=== PATIENT | male | born 1970 | race Caucasian/White ===

== ENCOUNTER 2020-01-21 16:24 | Inpatient (IN) ==
[2020-01-21] MEDS ORDERED: SODIUM CHLORIDE 0.9% 1000ML 1,000 ML IV SCH (17:00)
[2020-01-21 18:06] LABS: Basophils # (auto) 0.05 K/uL (0-0.2); Basophils % (auto) 0.4 %; Eosinophils # (auto) 0.51 K/uL (0-0.5); Eosinophils % (auto) 4.6 %; Hematocrit (blood only) 44.4 % (42-52); Hemoglobin 14.6 g/dL (14.0-18.0); Immature Granulocytes # (auto) 0.03 K/uL (0.00-0.02); Immature Granulocytes % (auto) 0.3 %; Lymphocytes # (auto) 2.01 K/uL (1.2-3.4); Lymphocytes % (auto) 18.1 %; Mean Corpuscular Hemoglobin 30.5 pg (25-34); Mean Corpuscular Hgb Conc 32.9 g/dL (32-36); Mean Corpuscular Volume 92.9 fL (80-100); Mean Platelet Volume 10.5 fL (7.4-10.4); Monocytes % (auto) 7.2 %; Neutrophils # (auto) 7.72 K/uL (1.4-6.5); Neutrophils % (auto) 69.4 %; Platelet Count 427 K/uL (130-400); RDW Standard Deviation 51.1 fL (36.4-46.3); Red Blood Count 4.78 M/uL (4.7-6.1); White Blood Count 11.12 K/uL (4.8-10.8)
[2020-01-21 18:28] LABS: Alanine Aminotransferase 15 U/L (12-78); Albumin Level 2.6 gm/dl (3.4-5.0); Aspartate Aminotransferase 9 U/L (15-37); BUN Creatinine Ratio 14.1 (10-20); Blood Urea Nitrogen 12 mg/dl (7-18); Calcium 8.7 mg/dl (8.5-10.1); Carbon Dioxide 31 mmol/L (21-32); Chloride 101 mmol/L (98-107); Est GFR (African American) 118.6; Est GFR (Non-African American) 102.3; Glucose 89 mg/dl (70-99); Potassium 4.1 mmol/L (3.5-5.1); Sodium 138 mmol/L (136-145)
[2020-01-21 18:31] LABS: Albumin Globulin Ratio 0.5 (0.9-2); Alkaline Phosphatase 150 U/L (45-117); Bilirubin,Total 0.5 mg/dl (0.2-1); C Reactive Protein 8.41 mg/dl (0-0.29); Globulin 5.5 gm/dl (2.5-4.0); Total Protein 8.1 gm/dl (6.4-8.2)
[2020-01-21] MEDS ORDERED: IOVERSOL 100ml IV PRN (18:57)
[2020-01-21] MEDS ORDERED: metroNIDAZOLE 500 MG/100 ML BAG IV STA (19:23)
[2020-01-21] MEDS ORDERED: DAPTOMYCIN CONSULT ACTIVE PRN (19:23)
[2020-01-21] MEDS ORDERED: DAPTOmycin 600 MG in SYRINGE 0 ML IV ONE (19:23)
[2020-01-21] MEDS ORDERED: CEFEPIME 2,000 MG/20 ML VIAL IV STA (19:23)
--- NOTE | 2020-01-21 19:27 | CT Scan Report ---
CT tib/fib RT w con CLINICAL HISTORY: R stump swelling, wound COMPARISON STUDY: No previous studies for comparison. TECHNIQUE: Axial images of the right lower leg were obtained following intravenous injection of 94 cc of Optiray 320 IV. Sagittal and coronal reconstructions were viewed. Automated exposure control was utilized for the study. A dose lowering technique was utilized adhering to the principles of ALARA. FINDINGS: Note is made of postoperative findings consistent with a right below-knee amputation. No so ft tissue gas is present. There is extensive infiltration soft tissue thickening adjacent to the kishan ining portions of the tibia and fibula with associated periosteal reaction of the distal remaining sh afts of the right tibia and fibula. Mild associated bone loss is suspected. Extensive adjacent soft t issue thickening is noted with a 2.3 cm rim-enhancing fluid collection anterior to the remaining port ion of the tibia. There is also an additional 2.1 cm rim-enhancing fluid collection anterior and late ral to the fibula. Skin thickening is noted. IMPRESSION: Status post right below knee amputation. Skin thickening, subcutaneous infiltration and extensive soft tissue thickening adjacent to the remaining portions of the tibia and fibula with a fe w rim-enhancing fluid collections that measure up to 2.3 cm highly suggestive of abscesses. Associate d periosteal reaction of the distal right tibia and fibula are highly suggestive of osteomyelitis. Fi ndings discussed with Dr. Jarrett at time of dictation. ACT 112: Negative or not required by law. Electronically signed by: Jose Harman M.D. 01/21/2020 7:25 PM
--- NOTE | 2020-01-21 19:59 | Ultrasound Report ---
RIGHT LOWER EXTREMITY VENOUS DOPPLER CLINICAL HISTORY: leg swelling COMPARISON STUDY: CT of the right tibia and fibula performed earlier today TECHNIQUE: Sonography of the deep venous system of the right lower extremity was performed. Compress ion and augmentation were evaluated. FINDINGS: Patient is status post right below knee amputation. No deep venous thrombus is identified w ithin the right leg. IMPRESSION: No evidence of deep venous thrombus within the right lower extremity. ACT 112: Negative or not required by law. Electronically signed by: Jose Harman M.D. 01/21/2020 7:58 PM
[2020-01-21 21:15] LABS: Creatine Kinase 35 U/L (39-308); Magnesium 2.2 mg/dl (1.8-2.4)
--- NOTE | 2020-01-21 21:17 | History & Physical Report ---
Date of Service January 21, 2020 Assessment & Plan (1) Abscess of skin and subcutaneous tissue: R BKA stump infection Possible osteomyelitis on CT No sepsis for now hx Wtabbjn-Xijqu-Iwhqq disease history postop DVT on Aspirin (Coumadin noncompliance as per records) past tobacco abuse [facility] CS. Daptomycin, Cefepime, Flagyl for now Orthopedics consult RE R BKA stump infection (ER provider already in touch with Dr. Verdugo who recommends n.p.o. after midnight for possible procedure in a.m.) ID consult RE possible osteomyelitis, R BKA stump DVT prophylaxis SCDs for now RE possible procedure (Recommend pharmacologic anticoagulation given prior history of DVT once bleeding risk is deemed to be minimal and negligible pending Orthopedics evaluation.) Full code Text document was generated using [employer] voice recognition software. It may contain grammatical or spelling errors. Kindly contact undersigned for clarification of any documentation item in question. History of Present Illness Primary Care Provider: Dr. Javed History obtained from patient and records. Medical history significant for Uelxoug-Xmmtz-Lojkj disease, history right BKA, history postop DVT (2019) on aspirin (Coumadin noncompliance as per records), past tobacco abuse. Remote [facility] confinement 2013 for L foot ulcer concerning for osteomyelitis status post toe amputation. Patient underwent right BKA at [facility] for RLE osteomyelitis last April 2019. Patient had recent outpatient follow-up with [facility] last week. Problems wearing prosthetic leg because stump keeps fluctuating in size as per note. Follow-up with local dental ceramist recommended. Few days ago, patient noted increased redness on right BKA stump. No recollection of trauma or open wounds except for the issues with prostatic. No fever, no chills. No chest pain, no S OB. CT RLE scan done at the ER results as follows : Status post right below knee amputation. Skin thickening, subcutaneous infiltration and extensive soft tissue thickening adjacent to the remaining portions of the tibia and fibula with a few rim-enhancing fluid collections that measure up to 2.3 cm highly suggestive of abscesses. Associated periosteal reaction of the distal right tibia and fibula are highly suggestive of osteomyelitis. Patient given Daptomycin, Cefepime and Flagyl at the ER. Medical History as above Surgical History : Toe amputations, right BKA Family History : Heart disease, diabetes, prostate cancer, Qgwjrns-Sfirp-Onryr disease Personal/Social history : Past tobacco abuse, no EtOH intake, disabled Allergies Allergy/AdvReac Type Severity Reaction Status Date / Time Penicillins Allergy Intermediate rash, hives Verified 01/21/20 17:18 tramadol AdvReac Unknown Verified 01/21/20 21:37 Home Medications Home Medications Medication Instructions Recorded Confirmed Type aspirin [Aspirin Low Dose] 81 mg PO DAILY 10/26/18 01/21/20 History oxycodone-acetaminophen 1 tab PO Q6H PRN 10/26/18 01/21/20 History Past Med/Surg History Medical History Sevdzlu-Udjbh-Qnojq disease Osteomyelitis Social History 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 Beliefs That Will Affect Care: None Current Living Situation: Spouse and Family Other Information That Helps Us Care for You: No Feels Safe at Home: Yes Safety Concerns: Feels Safe At This Time Smoking Status: Former smoker Tobacco Type: cigarettes ; Do You Dip or Chew Tobacco: No ; Second Hand Exposure: No ; Tobacco Cessation Education Requested by Patient: No Hx Substance Use: No Review of Systems Review of Systems: As per HPI, all 10 systems reviewed, all other ROS negative Physical Exam Physical Exam: GENERAL: Comfortable, pleasant, no respiratory distress SKIN: Normal color, warm HEENT: [place] palpebral conjunctivae, no ptosis, dry buccal mucosa NECK : Supple, no tenderness CHEST : CTA, no tenderness HEART : RRR, no obvious murmurs ABDOMEN: Some distention, nontender EXTREMITIES : Right BKA stump induration with tenderness NEUROLOGIC : Coherent, no facial asymmetry, no other gross focality Results & Data Results & Data ([facility]) Vital Signs (Past 12 Hours) Vital Signs Temp Pulse Pulse Resp BP BP Pulse Ox 01/21/20 20:26 119/54 L 01/21/20 20:00 114/50 L 01/21/20 18:25 74 20 105/50 L 97 01/21/20 16:27 36.5 C 85 20 106/65 99 Laboratory Results Laboratory Results WBC 11.12 K/uL (4.8-10.8) H 01/21/20 17:30 RBC 4.78 M/uL (4.7-6.1) 01/21/20 17:30 Hgb 14.6 g/dL (14.0-18.0) 01/21/20 17:30 Hct 44.4 % (42-52) 01/21/20 17:30 MCV 92.9 fL (80-100) 01/21/20 17:30 MCH 30.5 pg (25-34) 01/21/20 17: MCHC 32.9 g/dL (32-36) 01/21/20 17:30 RDW Std Deviation 51.1 fL (36.4-46.3) H 01/21/20 17:30 RDW Coeff of Caitlin 15.0 % (11.5-14.5) H 01/21/20 17: Plt Count 427 K/uL (130-400) H 01/21/20 17:30 MPV 10.5 fL (7.4-10.4) H 01/21/20 17:30 Immature Gran % (Auto) 0.3 % 01/21/20 17:30 Neut % (Auto) 69.4 % 01/21/20 17:30 Lymph % (Auto) 18.1 % 01/21/20 17:30 [place] % (Auto) 7.2 % 01/21/20 17:30 Eos % (Auto) 4.6 % 01/21/20 17:30 Baso % (Auto) 0.4 % 01/21/20 17:30 Immature Gran # (Auto) 0.03 K/uL (0.00-0.02) H 01/21/20 17:30 Neut # (Auto) 7.72 K/uL (1.4-6.5) H 01/21/20 17:30 Lymph # (Auto) 2.01 K/uL (1.2-3.4) 01/21/20 17:30 [place] # (Auto) 0.80 K/uL (0.11-0.59) H 01/21/20 17:30 Eos # (Auto) 0.51 K/uL (0-0.5) H 01/21/20 17:30 Baso # (Auto) 0.05 K/uL (0-0.2) 01/21/20 17:30 ESR > 90 mm/hr (0-14) H 01/21/20 17:30 Sodium 138 mmol/L (136-145) 01/21/20 17:30 Potassium 4.1 mmol/L (3.5-5.1) 01/21/20 17:30 Chloride 101 mmol/L (98-107) 01/21/20 17:30 Carbon Dioxide 31 mmol/L (21-32) 01/21/20 17:30 Anion Gap 6.0 (3-11) 01/21/20 17:30 BUN 12 mg/dl (7-18) 01/21/20 17:30 Creatinine 0.85 mg/dl (0.6-1.4) 01/21/20 17:30 Est Cr Clr Drug Dosing Not Reportable 01/21/20 17:30 Est GFR ( Amer) 118.6 01/21/20 17:30 Est GFR (Non-Af Amer) 102.3 01/21/20 17:30 BUN/Creatinine Ratio 14.1 (10-20) 01/21/20 17:30 Glucose 89 mg/dl (70-99) 01/21/20 17:30 Lactate 0.9 mmol/L (0.4-2.0) 01/21/20 18:49 Calcium 8.7 mg/dl (8.5-10.1) 01/21/20 17:30 Magnesium 2.2 mg/dl (1.8-2.4) 01/21/20 17:30 Total Bilirubin 0.5 mg/dl (0.2-1) 01/21/20 17:30 AST 9 U/L (15-37) L 01/21/20 17:30 ALT 15 U/L (12-78) 01/21/20 17:30 Alkaline Phosphatase 150 U/L (45-117) H 01/21/20 17:30 Total Creatine Kinase 35 U/L (39-308) L 01/21/20 17:30 C-Reactive Protein 8.41 mg/dl (0-0.29) H 01/21/20 17:30 Total Protein 8.1 gm/dl (6.4-8.2) 01/21/20 17:30 Albumin 2.6 gm/dl (3.4-5.0) L 01/21/20 17:30 Globulin 5.5 gm/dl (2.5-4.0) H 01/21/20 17:30 Albumin/Globulin Ratio 0.5 (0.9-2) L 01/21/20 17:30 Procalcitonin < 0.05 ng/ml (0-0.5) 01/21/20 17:[address] right lower extremity as per HPI RLE venous Dopplers: No evidence of deep venous thrombus within the right lower extremity. (1) Abscess of skin and subcutaneous tissue Laterality: right Site of cutaneous abscess: extremity Site of cutaneous abscess of extremity: lower extremity Qualified Code(s): L02.415 - Cutaneous abscess of right lower limb
[2020-01-21] MEDS ORDERED: PROMETHAZINE HCL 12.5 MG in SODIUM CHLORIDE 0.9% 50 ML IV PRN (22:16)
[2020-01-21] MEDS ORDERED: ACETAMINOPHEN 325 MG TAB PO PRN (22:16)
[2020-01-21] MEDS ORDERED: IBUPROFEN 200 MG TAB PO PRN (22:16)
[2020-01-21] MEDS ORDERED: CEFEPIME CONSULT ACTIVE PRN (22:27)
--- NOTE | 2020-01-21 23:21 | Emergency Department Note ---
History of Present Illness General Chief complaint: Lower Extremity Injury/Pain Stated complaint: RT LEG SWELLING, HOT TO THE TOUCH Time Seen by Provider: 01/21/20 16:45 Source: patient Mode of arrival: ambulatory Limitations: no limitations History of Present Illness Provider complaint: Right leg swelling Onset (ago): day(s) 2 Maximum Pain Intensity: 8 This patient is a 49-year-old male who presents to the emergency department with complaints of right lower extremity swelling and redness. Patient states he had a below the knee amputation in April 2019. He has not been able to wear his prosthetic for the the last 2 weeks due to swelling. The patient states he saw his primary care physician who advised warm soaks of the leg. Patient states he was soaking his leg tonight and noticed a wound on the surface of the scar. Patient does have a remote history of PE but is not currently anticoagulated. He admits to a history of Psdhayc-Fnjmb-Ilsiu and denies any diabetic history. Home Medications Home Medications Medication Instructions Recorded Confirmed Type aspirin [Aspirin Low Dose] 81 mg PO DAILY 10/26/18 01/21/20 History oxycodone-acetaminophen 1 tab PO Q6H PRN 10/26/18 01/21/20 History Allergies Allergy/AdvReac Type Severity Reaction Status Date / Time Penicillins Allergy Intermediate rash, hives Verified 01/21/20 17:18 tramadol AdvReac Unknown Verified 01/21/20 21:37 Past Med/Surg History Medical History Zqwfxnn-Jjjny-Jayzi disease Osteomyelitis Social History Preferred Language: Czech Power Washer Required: No Beliefs That Will Affect Care: None Current Living Situation: Spouse and Family Other Information That Helps Us Care for You: No Feels Safe at Home: Yes Safety Concerns: Feels Safe At This Time Smoking Status: Former smoker Tobacco Type: cigarettes ; Do You Dip or Chew Tobacco: No ; Second Hand Exposure: No ; Tobacco Cessation Education Requested by Patient: No Hx Substance Use: No Review of Systems See HPI for pertinent positives & negatives. and A total of 10 systems reviewed and were otherwise negative Physical Exam Vital Signs Vital Signs - 24 hr 01/21/20 16:27 01/21/20 18:25 01/21/20 20:00 Temperature 36.5 C Temperature Source Oral Pulse Rate 85 Pulse Rate [Right Finger] 74 Pulse Rhythm [Right Finger] Regular Pulse Strength [Right Finger] Normal Respiratory Rate 20 20 Respiratory Effort / Characteristics Non-Labored Spontaneous Respiratory Depth Normal Respiratory Pattern Regular Blood Pressure 106/65 Blood Pressure [Right Arm] 105/50 L 114/50 L Blood Pressure Mean 78 Blood Pressure Mean [Right Arm] 68 71 Blood Pressure Position [Right Arm] Lying Pulse Oximetry 99 97 Oxygen Delivery Method Room Air Room Air Sepsis Recent Fever Within 48 Hours No Sepsis New/Unexplained Change in Mental Status No Sepsis Action Taken by Nursing No Action Required 01/21/20 20:26 Temperature Temperature Source Pulse Rate Pulse Rate [Right Finger] Pulse Rhythm [Right Finger] Pulse Strength [Right Finger] Respiratory Rate Respiratory Effort / Characteristics Respiratory Depth Respiratory Pattern Blood Pressure Blood Pressure [Right Arm] 119/54 L Blood Pressure Mean Blood Pressure Mean [Right Arm] 75 Blood Pressure Position [Right Arm] Pulse Oximetry Oxygen Delivery Method Sepsis Recent Fever Within 48 Hours Sepsis New/Unexplained Change in Mental Status Sepsis Action Taken by Nursing Vital signs reviewed. General: Chronically ill-appearing 49 yo male, in no significant distress. HEENT: No scleral icterus, PERRLA, neck supple. Atraumatic. Cardiovascular: Regular rate and rhythm, no extra sounds. Pulmonary: Clear to auscultation bilaterally, normal work of breathing. Abdomen: Soft, nontender, nondistended, positive bowel sounds. Musculoskeletal: Minimal peripheral edema, right below the knee amputation stump with localized swelling, erythema. Warm to touch. Small blister-like lesion noted to the lateral aspect of the postsurgical scar. No evidence of lymphangitic streaking proximally Neurologic: Patient awake alert and oriented x 3 Skin: Warm, dry, no rash Course Administered Medications Discontinued Medications Sodium Chloride (Nss 1000ml) 1,000 mls @ 125 mls/hr IV .Q8H CHERRY Stop: 01/22/20 00:59 Last Infusion: 01/21/20 22:39 Dose: 0 mls/hr Documented by: [id number] Admin: 01/21/20 17:54 Dose: 125 mls/hr Documented by: [id number] Daptomycin 600 mg/ Syringe 12 mls @ 6 mls/min IV NOW ONE; Protocol Stop: 01/21/20 19:24 Last Admin: 05/12/20 20:03 Dose: 6 mls/min Documented by: [id number] Cefepime HCl (Maxipime) 2,000 mg in 20 mls @ 5 mls/min IV NOW STA Stop: 01/21/20 19:26 Last Admin: 01/21/20 20:03 Dose: 5 mls/min Documented by: [id number] Metronidazole (Flagyl) 500 mg in 100 mls @ 100 mls/hr IV NOW STA Stop: 01/21/20 20:22 Last Infusion: 01/21/20 21:10 Dose: 0 mls/hr Documented by: [id number] Admin: 01/21/20 20:03 Dose: 100 mls/hr Documented by: [id number] Ioversol (Optiray 320 100ml) 94 ml IV ONCE PRN PRN Reason: Interaction Checking Stop: 01/25/20 18:56 Last Admin: 01/21/20 18:59 Dose: 94 ml Documented by: [id number] Medical Decision Making Differential Diagnosis Differential diagnosis: Etiologies such as cellulitis, abscess, osteomyelitis, MRSA infection, DVT, necrotizing fasciitis, dermatitis, drug eruption, as well as others were entertained. Medical Records Attestation: I reviewed the patient's medical records. Home Medications Current Medication List: was personally reviewed by me Laboratory Data Attestation: I reviewed the patient's lab results. Result diagrams: 01/21/20 17:30 01/21/20 17:30 Lab Results 01/21/20 01/21/20 01/21/20 Range/Units 17:30 17:30 17:30 WBC 11.12 H (4.8-10.8) K/uL RBC 4.78 (4.7-6.1) M/uL Hgb 14.6 (14.0-18.0) g/dL Hct 44.4 (42-52) % MCV 92.9 (80-100) fL MCH 30.5 (25-34) pg MCHC 32.9 (32-36) g/dL RDW Std Deviation 51.1 H (36.4-46.3) fL RDW Coeff of Caitlin 15.0 H (11.5-14.5) % Plt Count 427 H (130-400) K/uL MPV 10.5 H (7.4-10.4) fL Immature Gran % (Auto) 0.3 % Neut % (Auto) 69.4 % Lymph % (Auto) 18.1 % [place] % (Auto) 7.2 % Eos % (Auto) 4.6 % Baso % (Auto) 0.4 % Immature Gran # (Auto) 0.03 H (0.00-0.02) K/uL Neut # (Auto) 7.72 H (1.4-6.5) K/uL Lymph # (Auto) 2.01 (1.2-3.4) K/uL [place] # (Auto) 0.80 H (0.11-0.59) K/uL Eos # (Auto) 0.51 H (0-0.5) K/uL Baso # (Auto) 0.05 (0-0.2) K/uL ESR > 90 H (0-14) mm/hr Sodium 138 (136-145) mmol/L Potassium 4.1 (3.5-5.1) mmol/L Chloride 101 (98-107) mmol/L Carbon Dioxide 31 (21-32) mmol/L Anion Gap 6.0 (3-11) BUN 12 (7-18) mg/dl Creatinine 0.85 (0.6-1.4) mg/dl Est Cr Clr Drug Dosing Not Reportable Est GFR ( Amer) 118.6 Est GFR (Non-Af Amer) 102.3 BUN/Creatinine Ratio 14.1 (10-20) Glucose 89 (70-99) mg/dl Lactate (0.4-2.0) mmol/L Calcium 8.7 (8.5-10.1) mg/dl Magnesium 2.2 (1.8-2.4) mg/dl Total Bilirubin 0.5 (0.2-1) mg/dl AST 9 L (15-37) U/L ALT 15 (12-78) U/L Alkaline Phosphatase 150 H (45-117) U/L Total Creatine Kinase 35 L (39-308) U/L C-Reactive Protein 8.41 H (0-0.29) mg/dl Total Protein 8.1 (6.4-8.2) gm/dl Albumin 2.6 L (3.4-5.0) gm/dl Globulin 5.5 H (2.5-4.0) gm/dl Albumin/Globulin Ratio 0.5 L (0.9-2) Procalcitonin (0-0.5) ng/ml 01/21/20 01/21/20 Range/Units 17:30 18:49 WBC (4.8-10.8) K/uL RBC (4.7-6.1) M/uL Hgb (14.0-18.0) g/dL Hct (42-52) % MCV (80-100) fL MCH (25-34) pg MCHC (32-36) g/dL RDW Std Deviation (36.4-46.3) fL RDW Coeff of Caitlin (11.5-14.5) % Plt Count (130-400) K/uL MPV (7.4-10.4) fL Immature Gran % (Auto) % Neut % (Auto) % Lymph % (Auto) % [place] % (Auto) % Eos % (Auto) % Baso % (Auto) % Immature Gran # (Auto) (0.00-0.02) K/uL Neut # (Auto) (1.4-6.5) K/uL Lymph # (Auto) (1.2-3.4) K/uL [place] # (Auto) (0.11-0.59) K/uL Eos # (Auto) (0-0.5) K/uL Baso # (Auto) (0-0.2) K/uL ESR (0-14) mm/hr Sodium (136-145) mmol/L Potassium (3.5-5.1) mmol/L Chloride (98-107) mmol/L Carbon Dioxide (21-32) mmol/L Anion Gap (3-11) BUN (7-18) mg/dl Creatinine (0.6-1.4) mg/dl Est Cr Clr Drug Dosing Est GFR ( Amer) Est GFR (Non-Af Amer) BUN/Creatinine Ratio (10-20) Glucose (70-99) mg/dl Lactate 0.9 (0.4-2.0) mmol/L Calcium (8.5-10.1) mg/dl Magnesium (1.8-2.4) mg/dl Total Bilirubin (0.2-1) mg/dl AST (15-37) U/L ALT (12-78) U/L Alkaline Phosphatase (45-117) U/L Total Creatine Kinase (39-308) U/L C-Reactive Protein (0-0.29) mg/dl Total Protein (6.4-8.2) gm/dl Albumin (3.4-5.0) gm/dl Globulin (2.5-4.0) gm/dl Albumin/Globulin Ratio (0.9-2) Procalcitonin < 0.05 (0-0.5) ng/ml Imaging Data Radiologist's Impression: CT tib/fib RT w con CLINICAL HISTORY: R stump swelling, wound COMPARISON STUDY: No previous studies for comparison. TECHNIQUE: Axial images of the right lower leg were obtained following intravenous injection of 94 cc of Optiray 320 IV. Sagittal and coronal reconstructions were viewed. Automated exposure control was utilized for the study. A dose lowering technique was utilized adhering to the principles of ALARA. FINDINGS: Note is made of postoperative findings consistent with a right below- knee amputation. No soft tissue gas is present. There is extensive infiltration soft tissue thickening adjacent to the remaining portions of the tibia and fibula with associated periosteal reaction of the distal remaining shafts of the right tibia and fibula. Mild associated bone loss is suspected. Extensive adjacent soft tissue thickening is noted with a 2.3 cm rim-enhancing fluid collection anterior to the remaining portion of the tibia. There is also an additional 2.1 cm rim-enhancing fluid collection anterior and lateral to the fibula. Skin thickening is noted. IMPRESSION: Status post right below knee amputation. Skin thickening, subcutaneous infiltration and extensive soft tissue thickening adjacent to the remaining portions of the tibia and fibula with a few rim-enhancing fluid collections that measure up to 2.3 cm highly suggestive of abscesses. Associated periosteal reaction of the distal right tibia and fibula are highly suggestive of osteomyelitis. Findings discussed with Dr. Jarrett at time of dictation. ACT 112: Negative or not required by law. Electronically signed by: Jose Harman M.D. 01/21/2020 7:25 PM Dictated: 01/21/201909 Transcribed: 01/21/201909 RIGHT LOWER EXTREMITY VENOUS DOPPLER CLINICAL HISTORY: leg swelling COMPARISON STUDY: CT of the right tibia and fibula performed earlier today TECHNIQUE: Sonography of the deep venous system of the right lower extremity was performed. Compression and augmentation were evaluated. FINDINGS: Patient is status post right below knee amputation. No deep venous thrombus is identified within the right leg. IMPRESSION: No evidence of deep venous thrombus within the right lower extremity. ACT 112: Negative or not required by law. Electronically signed by: Jose Harman M.D. 01/21/2020 7:58 PM Dictated: 01/21/201956 Transcribed: 01/21/201956 Blood Pressure Blood Pressure Findings: Normal blood pressure Blood Pressure Disposition: did not require urgent referral MDM Narrative This patient was evaluated and appeared to be in no significant distress. IV access was obtained and laboratory work was drawn. Patient's vital signs have remained stable. He was hydrated with normal saline solution. CT imaging was performed of the right lower extremity and reveals evidence of inflammatory change consistent with osteomyelitis as well as several rim-enhancing lesions, largest of which is 2.3 cm. This would be consistent with abscess. Patient was medicated with IV daptomycin, IV Flagyl and IV cefepime due to his penicillin allergy. Case was discussed with the hospitalist service, Dr. Hernandez who has agreed to evaluate the patient for admission. He did request consultation with orthopedics, Dr. Wilson. He has requested that the patient be n.p.o. after midnight. Patient is aware of this plan and agrees. Impression & Plan Cellulitis, Osteomyelitis, Abscess of skin and subcutaneous tissue Discharge Plan Visit Data *Final* Discharge Date/Time: 01/21/20 22:08 Chief Complaint: Lower Extremity Injury/Pain Stated Complaint: RT LEG SWELLING, HOT TO THE TOUCH ED Provider: Mari Jarrett Discharge Problem: Cellulitis, Osteomyelitis, Abscess of skin and subcutaneous tissue Patient Disposition: Admitted As Inpatient Discharge Instructions Interventions: ED Discharge Assessment Last Done: 01/21/20 22:08 Discharge Problem: Cellulitis Qualifiers: Site of cellulitis: extremity Site of cellulitis of extremity: lower extremity Laterality: right Qualified Code(s): L03.115 - Cellulitis of right lower limb Osteomyelitis Qualifiers: Osteomyelitis type: unspecified type Osteomyelitis location: tibia Laterality: right Qualified Code(s): M86.9 - Osteomyelitis, unspecified Abscess of skin and subcutaneous tissue Qualifiers: Site of cutaneous abscess: extremity Site of cutaneous abscess of extremity: lower extremity Laterality: right Qualified Code(s): L02.415 - Cutaneous abscess of right lower limb
[2020-01-22] MEDS: MoRPHine SULFATE 4 MG/ML 1 ML CARP\\VIAL IV PRN ×3 (00:02→22:41)
[2020-01-22] MEDS: SODIUM CHLORIDE 0.9% 1000ML 1,000 ML IV SCH ×2 (00:08→19:30)
[2020-01-22] MEDS: OXYCODONE/ACETAMINOPHEN 5mg/325mg TAB PO PRN ×3 (02:27→19:29)
[2020-01-22 05:47] LABS: Basophils # (auto) 0.06 K/uL (0-0.2); Basophils % (auto) 0.5 %; Eosinophils # (auto) 0.66 K/uL (0-0.5); Eosinophils % (auto) 5.4 %; Hematocrit (blood only) 38.9 % (42-52); Hemoglobin 12.9 g/dL (14.0-18.0); Immature Granulocytes # (auto) 0.04 K/uL (0.00-0.02); Immature Granulocytes % (auto) 0.3 %; Lymphocytes # (auto) 2.65 K/uL (1.2-3.4); Lymphocytes % (auto) 21.9 %; Mean Corpuscular Hemoglobin 30.7 pg (25-34); Mean Corpuscular Hgb Conc 33.2 g/dL (32-36); Mean Corpuscular Volume 92.6 fL (80-100); Mean Platelet Volume 9.9 fL (7.4-10.4); Monocytes # (auto) 0.82 K/uL (0.11-0.59); Monocytes % (auto) 6.8 %; Neutrophils # (auto) 7.89 K/uL (1.4-6.5); Neutrophils % (auto) 65.1 %; Platelet Count 355 K/uL (130-400); RDW Standard Deviation 51.3 fL (36.4-46.3); White Blood Count 12.12 K/uL (4.8-10.8)
[2020-01-22 06:25] LABS: Creatinine Clr Calc Pharmacy 177.1 ml/min; Est GFR (African American) 127.7; Est GFR (Non-African American) 110.2; Potassium 3.8 mmol/L (3.5-5.1)
[2020-01-22] MEDS ORDERED: ASPIRIN 81 MG ECTAB PO SCH (09:00)
--- NOTE | 2020-01-22 09:23 | Orthopedic Consultation ---
Date of Consultation January 22, 2020 Assessment & Plan (1) Abscess of skin and subcutaneous tissue: He is currently n.p.o. We will plan to do an irrigation, drainage, debridement of his right lower extremity stump later today. This does appear to be infection. Will recommend continue his IV antibiotics. He was consented and risks and complications were discussed. He agrees to proceed with surgery. He was offered to go to [facility] but elected to stay here to have the surgery. New dressings were applied. Patient was seen and evaluated by Dr. Wilson today. He is not currently on any anticoagulation except for baby aspirin. Patient understands and agrees with the plan. Present on Admission?: Yes History of Present Illness Reason for Consultation: Right below-knee amputation stump infection Attending Physician: Hui Henry MD History of Present Illness Patient is a 49-year-old male who presented to the emergency room at [facility] yesterday. He presented complaining of increased swelling redness and warmth to his right knee and below-knee amputation stump. He states that he had an amputation in April 2019 at [facility] for treatment of Wrvskhp-Xeolu-Otomd disease He states that he had the amputation because he did develop ankle fracture that failed to respond to fixation and developed an infection. He has been doing well with the amputation postoperatively. He states that he did not have an infection after surgery and that his wound healed up just fine. He recently has been breaking in a prosthesis and developed some discomfort starting about 2 weeks ago. He did see his [facility] doctor on Monday and he recommended seeing his local prosthetists to have things modified. Over the weekend things started to get more painful in the stump. He denies any fevers, chills, nausea, vomiting, diarrhea. He states otherwise he feels his normal healthy self. States left evening the wound did open up and he noticed some blood on the dressings. He was admitted for care and an orthopedic consult was placed. He is currently n.p.o. Allergies Allergy/AdvReac Type Severity Reaction Status Date / Time Penicillins Allergy Intermediate rash, hives Verified 01/21/20 17:18 tramadol AdvReac Unknown Verified 01/21/20 21:37 Home Medications Home Medications Medication Instructions Recorded Confirmed Type aspirin [Aspirin Low Dose] 81 mg PO DAILY 10/26/18 01/21/20 History oxycodone-acetaminophen 1 tab PO Q6H PRN 10/26/18 01/21/20 History Patient History Medical History Wlcrcnw-Ihbef-Ymuym disease Osteomyelitis Social History Preferred Language: Croatian Coater Required: No Beliefs That Will Affect Care: None Current Living Situation: Spouse and Family Other Information That Helps Us Care for You: No Feels Safe at Home: Yes Safety Concerns: Feels Safe At This Time Smoking Status: Former smoker Tobacco Type: cigarettes ; Do You Dip or Chew Tobacco: No ; Second Hand Exposure: No ; Tobacco Cessation Education Requested by Patient: No Hx Substance Use: No Review of Systems Review of Systems: All systems reviewed & are unremarkable except as noted in HPI & below Physical Exam Physical Exam: Edema of his right lower extremity stump. His incision is otherwise healed except for lateral central portion. There is a small dime- sized opening with bloody drainage. Surrounding erythema and mild fluctuance. It is tender with palpation. He has no calf tenderness. His calf is supple. He has full range of motion of his knee and hip without discomfort. No purulence noted. Results & Data ([facility]) Vital Signs (Past 12 Hours) Vital Signs Temp Pulse Resp BP Pulse Ox 01/22/20 07:30 36.7 C 70 18 95/60 L 94 01/21/20 22:23 37 C 84 16 110/66 98 01/21/20 21:51 78 16 107/71 98 Laboratory Results 01/22/20 01/22/20 01/21/20 Range/Units 05:30 05:30 18:49 WBC 12.12 H (4.8-10.8) K/uL RBC 4.20 L (4.7-6.1) M/uL Hgb 12.9 L (14.0-18.0) g/dL Hct 38.9 L (42-52) % MCV 92.6 (80-100) fL MCH 30.7 (25-34) pg MCHC 33.2 (32-36) g/dL RDW Std Deviation 51.3 H (36.4-46.3) fL RDW Coeff of Caitlin 15.0 H (11.5-14.5) % Plt Count 355 (130-400) K/uL MPV 9.9 (7.4-10.4) fL Immature Gran % (Auto) 0.3 % Neut % (Auto) 65.1 % Lymph % (Auto) 21.9 % [place] % (Auto) 6.8 % Eos % (Auto) 5.4 % Baso % (Auto) 0.5 % Immature Gran # (Auto) 0.04 H (0.00-0.02) K/uL Neut # (Auto) 7.89 H (1.4-6.5) K/uL Lymph # (Auto) 2.65 (1.2-3.4) K/uL [place] # (Auto) 0.82 H (0.11-0.59) K/uL Eos # (Auto) 0.66 H (0-0.5) K/uL Baso # (Auto) 0.06 (0-0.2) K/uL ESR (0-14) mm/hr Sodium 138 (136-145) mmol/L Potassium 3.8 (3.5-5.1) mmol/L Chloride 105 (98-107) mmol/L Carbon Dioxide 28 (21-32) mmol/L Anion Gap 5.0 (3-11) BUN 11 (7-18) mg/dl Creatinine 0.71 (0.6-1.4) mg/dl Est Cr Clr Drug Dosing 177.1 Est GFR ( Amer) 127.7 Est GFR (Non-Af Amer) 110.2 BUN/Creatinine Ratio 15.0 (10-20) Glucose 100 H (70-99) mg/dl Lactate 0.9 (0.4-2.0) mmol/L Calcium 8.0 L (8.5-10.1) mg/dl Magnesium (1.8-2.4) mg/dl Total Bilirubin (0.2-1) mg/dl AST (15-37) U/L ALT (12-78) U/L Alkaline Phosphatase (45-117) U/L Total Creatine Kinase (39-308) U/L C-Reactive Protein (0-0.29) mg/dl Total Protein (6.4-8.2) gm/dl Albumin (3.4-5.0) gm/dl Globulin (2.5-4.0) gm/dl Albumin/Globulin Ratio (0.9-2) Procalcitonin (0-0.5) ng/ml 01/21/20 01/21/20 01/21/20 Range/Units 17:30 17:30 17:30 WBC (4.8-10.8) K/uL RBC (4.7-6.1) M/uL Hgb (14.0-18.0) g/dL Hct (42-52) % MCV (80-100) fL MCH (25-34) pg MCHC (32-36) g/dL RDW Std Deviation (36.4-46.3) fL RDW Coeff of Caitlin (11.5-14.5) % Plt Count (130-400) K/uL MPV (7.4-10.4) fL Immature Gran % (Auto) % Neut % (Auto) % Lymph % (Auto) % [place] % (Auto) % Eos % (Auto) % Baso % (Auto) % Immature Gran # (Auto) (0.00-0.02) K/uL Neut # (Auto) (1.4-6.5) K/uL Lymph # (Auto) (1.2-3.4) K/uL [place] # (Auto) (0.11-0.59) K/uL Eos # (Auto) (0-0.5) K/uL Baso # (Auto) (0-0.2) K/uL ESR > 90 H (0-14) mm/hr Sodium 138 (136-145) mmol/L Potassium 4.1 (3.5-5.1) mmol/L Chloride 101 (98-107) mmol/L Carbon Dioxide 31 (21-32) mmol/L Anion Gap 6.0 (3-11) BUN 12 (7-18) mg/dl Creatinine 0.85 (0.6-1.4) mg/dl Est Cr Clr Drug Dosing Not Reportable Est GFR ( Amer) 118.6 Est GFR (Non-Af Amer) 102.3 BUN/Creatinine Ratio 14.1 (10-20) Glucose 89 (70-99) mg/dl Lactate (0.4-2.0) mmol/L Calcium 8.7 (8.5-10.1) mg/dl Magnesium 2.2 (1.8-2.4) mg/dl Total Bilirubin 0.5 (0.2-1) mg/dl AST 9 L (15-37) U/L ALT 15 (12-78) U/L Alkaline Phosphatase 150 H (45-117) U/L Total Creatine Kinase 35 L (39-308) U/L C-Reactive Protein 8.41 H (0-0.29) mg/dl Total Protein 8.1 (6.4-8.2) gm/dl Albumin 2.6 L (3.4-5.0) gm/dl Globulin 5.5 H (2.5-4.0) gm/dl Albumin/Globulin Ratio 0.5 L (0.9-2) Procalcitonin < 0.05 (0-0.5) ng/ml 01/21/20 Range/Units 17:30 WBC 11.12 H (4.8-10.8) K/uL RBC 4.78 (4.7-6.1) M/uL Hgb 14.6 (14.0-18.0) g/dL Hct 44.4 (42-52) % MCV 92.9 (80-100) fL MCH 30.5 (25-34) pg MCHC 32.9 (32-36) g/dL RDW Std Deviation 51.1 H (36.4-46.3) fL RDW Coeff of Caitlin 15.0 H (11.5-14.5) % Plt Count 427 H (130-400) K/uL MPV 10.5 H (7.4-10.4) fL Immature Gran % (Auto) 0.3 % Neut % (Auto) 69.4 % Lymph % (Auto) 18.1 % [place] % (Auto) 7.2 % Eos % (Auto) 4.6 % Baso % (Auto) 0.4 % Immature Gran # (Auto) 0.03 H (0.00-0.02) K/uL Neut # (Auto) 7.72 H (1.4-6.5) K/uL Lymph # (Auto) 2.01 (1.2-3.4) K/uL [place] # (Auto) 0.80 H (0.11-0.59) K/uL Eos # (Auto) 0.51 H (0-0.5) K/uL Baso # (Auto) 0.05 (0-0.2) K/uL ESR (0-14) mm/hr Sodium (136-145) mmol/L Potassium (3.5-5.1) mmol/L Chloride (98-107) mmol/L Carbon Dioxide (21-32) mmol/L Anion Gap (3-11) BUN (7-18) mg/dl Creatinine (0.6-1.4) mg/dl Est Cr Clr Drug Dosing Est GFR ( Amer) Est GFR (Non-Af Amer) BUN/Creatinine Ratio (10-20) Glucose (70-99) mg/dl Lactate (0.4-2.0) mmol/L Calcium (8.5-10.1) mg/dl Magnesium (1.8-2.4) mg/dl Total Bilirubin (0.2-1) mg/dl AST (15-37) U/L ALT (12-78) U/L Alkaline Phosphatase (45-117) U/L Total Creatine Kinase (39-308) U/L C-Reactive Protein (0-0.29) mg/dl Total Protein (6.4-8.2) gm/dl Albumin (3.4-5.0) gm/dl Globulin (2.5-4.0) gm/dl Albumin/Globulin Ratio (0.9-2) Procalcitonin (0-0.5) ng/ml Diagnostic Findings Radiology images - x-ray of his right tib-fib are currently pending but ordered. CT tib/fib RT w con CLINICAL HISTORY: R stump swelling, wound COMPARISON STUDY: No previous studies for comparison. TECHNIQUE: Axial images of the right lower leg were obtained following intravenous injection of 94 cc of Optiray 320 IV. Sagittal and coronal reconstructions were viewed. Automated exposure control was utilized for the study. A dose lowering technique was utilized adhering to the principles of ALARA. FINDINGS: Note is made of postoperative findings consistent with a right below- knee amputation. No soft tissue gas is present. There is extensive infiltration soft tissue thickening adjacent to the remaining portions of the tibia and fibula with associated periosteal reaction of the distal remaining shafts of the right tibia and fibula. Mild associated bone loss is suspected. Extensive adjacent soft tissue thickening is noted with a 2.3 cm rim-enhancing fluid collection anterior to the remaining portion of the tibia. There is also an additional 2.1 cm rim-enhancing fluid collection anterior and lateral to the fibula. Skin thickening is noted. IMPRESSION: Status post right below knee amputation. Skin thickening, subcutaneous infiltration and extensive soft tissue thickening adjacent to the remaining portions of the tibia and fibula with a few rim-enhancing fluid collections that measure up to 2.3 cm highly suggestive of abscesses. Associated periosteal reaction of the distal right tibia and fibula are highly suggestive of osteomyelitis. Findings discussed with Dr. Jarrett at time of dictation. RIGHT LOWER EXTREMITY VENOUS DOPPLER CLINICAL HISTORY: leg swelling COMPARISON STUDY: CT of the right tibia and fibula performed earlier today TECHNIQUE: Sonography of the deep venous system of the right lower extremity was performed. Compression and augmentation were evaluated. FINDINGS: Patient is status post right below knee amputation. No deep venous thrombus is identified within the right leg. IMPRESSION: No evidence of deep venous thrombus within the right lower extremity. (1) Abscess of skin and subcutaneous tissue Laterality: right Site of cutaneous abscess: extremity Site of cutaneous abscess of extremity: lower extremity Qualified Code(s): L02.415 - Cutaneous abscess of right lower limb
[2020-01-22] MEDS: CEFEPIME 2,000 MG in SYRINGE 7.5 ML IV SCH ×2 (09:24→20:32)
[2020-01-22] MEDS: metroNIDAZOLE 500 MG/100 ML BAG IV SCH ×2 (09:28→16:42)
[2020-01-22] MEDS: KETOROLAC TROMETHAMINE 15 MG/ML VIAL IV PRN ×3 (09:33→22:47)
--- NOTE | 2020-01-22 09:38 | Progress Notes ---
DATE: 01/22/2020 The patient was seen in conjunction with Dara Lazo. For further details, refer to her dictation. She and I saw and evaluated together. I am in agreement with plan. He is about 9 months status post a right below knee amputation done at [facility] secondary to complications from foot reconstructive surgery because of Gxpinwn-Yjmmq-Etnbm disease. He did not have any leg wound and his amputation stump healed up fine. He has been breaking in a prosthesis recently. Over the past 2 weeks, he has noted some increased swelling. He was seen by his doctor at [facility] just several days ago and modifications to his prosthesis were recommended. Over the weekend, the last 2 days, he has developed increased redness, pain and swelling. He was seen in the ER with some redness. He was admitted by medicine. There is concern for osteomyelitis on CT scan and subcutaneous abscess. The bone changes can be seen under normal circumstances with a below-knee amputation. The fluid collection could represent a seroma. Since yesterday, the wound has opened up spontaneously. The examination today demonstrates a swollen stump with an area of what appears to be a small abscess on the central portion of the incision and an 0.5 cm open area laterally draining some bloody fluid. There is swelling and tenderness over the distal and anterior portion of the stump. He has full knee movement and there is intact sensation and circulation within the stump. CT scan results reviewed; x-ray will be ordered. He has no issues with bleeding. He did have a blood clot in the past and has been on aspirin. He has been n.p.o. PLAN: I think that he has an abscess of the amputation stump. I have recommended I&D in the operating room and he agrees to proceed. An informed consent was obtained, and we discussed the risks, benefits, rehab and recovery. I would continue intravenous antibiotics. We will get intraoperative cultures. We may need to debride some bone depending on what the circumstances are. I offered to send him back to see his doctor at [facility] if he was more comfortable with that, but he wanted to be treated here. No allergies to metals. No bleeding problems. His past medical history is noted and reviewed otherwise.
[2020-01-22] MEDS ORDERED: LIDOCAINE HCL 2% 2 ML VIAL/AMP(20MG/ML) INFIL ONE (09:48)
[2020-01-22] MEDS ORDERED: ONDANSETRON INJ 2 MG/ML 2 ML VIAL ONE (09:48)
[2020-01-22] MEDS ORDERED: MIDAZOLAM HCL 1 MG/ML 2ML VIAL ONE (09:48)
[2020-01-22] MEDS ORDERED: fentaNYL citrate 100 MCG/2 ML VIAL ONE ×2 (09:48→12:39)
[2020-01-22] MEDS ORDERED: PROPOFOL IV EMULSION 10 MG/ML 20 ML VIAL IV ONE ×4 (09:48→12:43)
[2020-01-22] MEDS ORDERED: DEXAMETHASONE SOD INJ 4 MG/ML VIAL ONE (09:48)
--- NOTE | 2020-01-22 10:03 | Hospitalist Progress Note ---
Date of Service January 22, 2020 Assessment & Plan (1) Abscess of skin and subcutaneous tissue: R BKA stump infection Possible abscess/osteomyelitis on CT No fevers. WBC is 12 today Currently on broad spectrum antibiotics (cefepime, dapto, flagyl) started on admission Spoke with ortho. Planned for I/D in OR today Get ID consult Hx Hxfcwse-Ajpnd-Dgxej disease History postop DVT on Aspirin (Coumadin noncompliance as per records) past tobacco abuse DVT ppx - SCD for now until after OR May start lovenox sq after surgery Admission and Anticipated Discharge Date Admission Date: January 21, 2020 Subjective Patient seen and examined Reports some pain in right leg stump Denied any fevers, chills Denied any nausea, vomiting, abd pain, diarrhea Denied any cough, chest pain, shortness of breath Denied any dizziness, weakness, headache Physical Exam Constitutional: well developed and well nourished; no acute distress Eyes: PERRL, conjunctivae normal, anicteric sclerae ENMT: external ear and nose normal, oropharynx normal Respiratory: normal respiratory effort, lungs clear to auscultation Cardiovascular: RRR, no murmur, no edema Gastrointestinal (Abdomen): normal bowel sounds, soft, nontender, no hepatosplenomegaly Musculoskeletal: Right leg BKA stump with clean dressing Neurologic: PERRL, EOMI, accommodation nl, no face palsy, no dysarthria Psychiatric: A+Ox3, euthymic affect Results & Data Results & Data ([facility]) Vital Signs (Past 12 Hours) Vital Signs Temp Pulse Resp BP Pulse Ox 01/22/20 07:30 36.7 C 70 18 95/60 L 94 01/21/20 22:23 37 C 84 16 110/66 98 Laboratory Results Short CBC 01/21/20 01/22/20 Range/Units 17:30 05:30 WBC 11.12 H 12.12 H (4.8-10.8) K/uL Hgb 14.6 12.9 L (14.0-18.0) g/dL Hct 44.4 38.9 L (42-52) % Plt Count 427 H 355 (130-400) K/uL BMP 01/21/20 01/22/20 17:30 05:30 Sodium 138 138 Potassium 4.1 3.8 Chloride 101 105 Carbon Dioxide 31 28 BUN 12 11 Creatinine 0.85 0.71 Glucose 89 100 H Calcium 8.7 8.0 L Cardiac Enzymes 01/21/20 Range/Units 17:30 Total Creatine Kinase 35 L (39-308) U/L Liver Function 01/21/20 Range/Units 17:30 Total Bilirubin 0.5 (0.2-1) mg/dl AST 9 L (15-37) U/L ALT 15 (12-78) U/L Alkaline Phosphatase 150 H (45-117) U/L Albumin 2.6 L (3.4-5.0) gm/dl (1) Abscess of skin and subcutaneous tissue Laterality: right Site of cutaneous abscess: extremity Site of cutaneous abscess of extremity: lower extremity Qualified Code(s): L02.415 - Cutaneous abscess of right lower limb
[2020-01-22] MEDS ORDERED: DexMEDEtomidine HCL IV 100 MCG/ML VIAL ONE (10:16)
--- NOTE | 2020-01-22 10:25 | Anesthesiology Consultation ---
Date of Service January 22, 2020 Assessment & Plan Chart Review Chart Review: Acceptable Risk for Surgery Consults Requested none History Surgery Operation Date: 01/22/20 08:00 Proposed Procedures p Right Knee Below Amputation Stump Irrigation and Drainage - Lauro Wilson MD Height/Weight Height: 6 ft 6 in Weight: 111.6 kg Allergies Allergy/AdvReac Type Severity Reaction Status Date / Time Penicillins Allergy Intermediate rash, hives Verified 01/21/20 17:18 tramadol AdvReac Unknown Verified 01/21/20 21:37 Medications Home Medications Medication Instructions Recorded Confirmed Last Taken aspirin [Aspirin Low Dose] 81 mg PO DAILY 10/26/18 01/21/20 10/26/18 oxycodone-acetaminophen 1 tab PO Q6H PRN 10/26/18 01/21/20 10/26/18 Active Medications Generic Name Dose Route Start Last Admin Trade Name Freq PRN Reason Stop Dose Admin Metronidazole 500 mg in 100 mls @ 100 mls/hr 01/22/20 09:00 01/22/20 09:28 Flagyl IV 03/04/20 08:59 100 mls/hr Q8H CHERRY Administration Sodium Chloride 1,000 mls @ 60 mls/hr 01/22/20 00:00 01/22/20 09:46 Nss 1000ml IV 02/21/20 00:00 0 mls/hr .[id number] CHERRY Infusion Cefepime HCl 2,000 mg/ Syringe 20 mls @ 5 mls/min 01/22/20 08:00 01/22/20 09:24 IV 03/04/20 07:59 5 mls/min Q12H CHERRY Administration Ketorolac Tromethamine 15 mg 01/21/20 22:16 01/22/20 09:33 Toradol IV 01/26/20 22:15 15 mg Q6H PRN Administration Pain Morphine Sulfate 4 mg 01/21/20 22:16 01/22/20 00:02 Morphine Sulfate IV 02/04/20 22:15 4 mg Q6H PRN Administration Pain Oxycodone/Acetaminophen 1 tab 01/21/20 22:16 01/22/20 02:27 Percocet 5mg/325mg PO 02/04/20 22:15 1 tab Q6H PRN Administration Pain NPO Date Last Intake of Fluids: 01/21/20 Time Last Intake of Fluids: 22:00 Date Last Intake of Solids: 01/21/20 Time Last Intake of Solids: 22:00 Past Medical History Medical History Bzmdklb-Romlc-Faedp disease Osteomyelitis Past Family History Family History Other No significant family history Social History Smoking Status: Former smoker tobacco type: cigarettes Do You Dip or Chew Tobacco: No alcohol intake frequency: holidays/special occasions only Hx Substance Use: No Physical Exam Vital Signs Last Vital Signs Temp 36.6 C 01/22/20 10:01 Pulse 73 01/22/20 10:01 Resp 18 01/22/20 10:01 BP 102/57 L 01/22/20 10:01 Pulse Ox 93 01/22/20 10:01 Testing Laboratory Results 01/22/20 05:30 01/22/20 05:30
[2020-01-22] MEDS ORDERED: ePHEDrine sulfate 50 MG/ML AMP IV PRN (10:26)
[2020-01-22] MEDS ORDERED: fentaNYL citrate 100 MCG/2 ML VIAL IV PRN (10:26)
[2020-01-22] MEDS ORDERED: HYDROmorphone INJ 2 MG/ML SYR/VIAL IV PRN (10:26)
[2020-01-22] MEDS ORDERED: PROMETHAZINE HCL 12.5 MG in SODIUM CHLORIDE 0.9% 50 ML IV PRN (10:26)
[2020-01-22] MEDS ORDERED: ONDANSETRON INJ 2 MG/ML 2 ML VIAL IV PRN (10:26)
[2020-01-22] MEDS ORDERED: METOCLOPRAMIDE HCL INJ 5 MG/ML 2 ML VIAL IV PRN (10:26)
[2020-01-22] MEDS ORDERED: ATROPINE SULFATE 0.1 MG/ML 10ML SYR IV PRN (10:26)
[2020-01-22] MEDS ORDERED: BACITRACIN INJ 50,000 UNIT VIAL ONE (10:48)
[2020-01-22] MEDS ORDERED: LIDOCAINE HCL 1% 20 ML VIAL ONE (11:04)
[2020-01-22] MEDS ORDERED: BUPIVACAINE 0.5 % 5 MG/1 ML MPF 30ML VIAL ONE (11:05)
[2020-01-22] MEDS ORDERED: GLYCOPYRROLATE 0.2 MG/ML VIAL ONE (11:21)
--- NOTE | 2020-01-22 12:05 | Infectious Disease Consult ---
Date of Consultation January 22, 2020 Assessment & Plan (1) Abscess of skin and subcutaneous tissue: continue current abx emperically awaiting blood, wound cultures and OR findings. will likely require several weeks of abx due to osteo. final recs will depend on culture data. 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 had bka in 04/2019 at [facility]. Pt afebrile in ER and since admission. had ct leg in ER, 2.3 cm abscess noted with soft tissue swelling and tibial osteo. ESR>90 procalcitonin negative, wbc 12, creat 0.7. blood cultures obtained, pending. evaluated by ortho, in OR at time of rounds for I&D. placed on cefepime, flagyl and dapto, tolerating well. has pcn allergy. Allergies Allergy/AdvReac Type Severity Reaction Status Date / Time Penicillins Allergy Intermediate rash, hives Verified 01/21/20 17:18 tramadol AdvReac Unknown Verified 01/21/20 21:37 Home Medications Home Medications Medication Instructions Recorded Confirmed Type aspirin [Aspirin Low Dose] 81 mg PO DAILY 10/26/18 01/21/20 History oxycodone-acetaminophen 1 tab PO Q6H PRN 10/26/18 01/21/20 History Patient History Medical History Bvhlupd-Lbwvh-Yjomp disease Osteomyelitis Family History Other No significant family history Social History Preferred Language: Hebrew Hand Compositor Required: No Beliefs That Will Affect Care: None Current Living Situation: Spouse and Family Other Information That Helps Us Care for You: No Feels Safe at Home: Yes Safety Concerns: Feels Safe At This Time Smoking Status: Former smoker Tobacco Type: cigarettes ; Do You Dip or Chew Tobacco: No ; Second Hand Exposure: No ; Tobacco Cessation Education Requested by Patient: No Hx Substance Use: No Review of Systems Review of Systems: Other per H&P Results & Data ([place]) Vital Signs (Past 12 Hours) Vital Signs Temp Pulse Resp BP Pulse Ox 01/22/20 10:01 36.6 C 73 18 102/57 L 93 01/22/20 07:30 36.7 C 70 18 95/60 L 94 PG Care Time/CCT Total # of Minutes Spent Total Time Spent with Patient: Total time spent is greater than 50% in coordination of care (as documented) at patient's floor/unit and/or counseling patient: Coding Level of Care Code 34111 Inpt Consult Level 2 Diagnoses Abscess of skin and subcutaneous tissue L02.415 Laterality: right Site of cutaneous abscess: extremity Site of cutaneous abscess of extremity: lower extremity Osteomyelitis M86.9 Laterality: right Osteomyelitis location: tibia Osteomyelitis type: unspecified type (1) Abscess of skin and subcutaneous tissue Laterality: right Site of cutaneous abscess: extremity Site of cutaneous abscess of extremity: lower extremity Qualified Code(s): L02.415 - Cutaneous abscess of right lower limb (2) Osteomyelitis Laterality: right Osteomyelitis location: tibia Osteomyelitis type: unspecified type Qualified Code(s): M86.9 - Osteomyelitis, unspecified
[2020-01-22] MEDS ORDERED: ePHEDrine sulfate 50 MG/ML SYR ONE (12:09)
[2020-01-22] MEDS ORDERED: TRANEXAMIC ACID / 0.7% NACL 1,000 MG/100 ML BAG IV STA (12:52)
[2020-01-22] MEDS ORDERED: TRANEXAMIC ACID / 0.7% NACL 1,000 MG/100 ML BAG IV ONE (13:00)
--- NOTE | 2020-01-22 13:16 | Operative Report ---
Post Operative Report Pre & Post Diagnosis Operation Date: 01/22/20 08:00 Pre-Op Diagnosis: Right below-knee amputation stump infection. Post-Op Diagnosis: Same. I identified the patient and participated in the time-out.: Yes Procedure Operation Date: 01/22/20 08:00 Actual Procedures p Incision, Irrigation and Debridement Right Below the Knee Amputation with revision of tibia and fibula amputations (Right) - Lauro Wilson MD Surgeon Lauro Wilson MD Cnc Machine Programmer Dr. Lowe Estimated Blood Loss 50 Findings Consistent with Post-Op Diagnosis Specimens Multiple cultures bone and soft tissue biopsies Anesthesia Type Spinal MAC Complications none Disposition Accompanied Patient To Recovery: No Disposition: Recovery Room Indications Patient is 49 years old. He has Yxdjojh-Nlknz-Kjiup disease. He had had a prior right foot reconstruction done at [facility]. There were complications and eventually he ended up having a right below-knee amputation done in April 2019. He had no wound problems and the leg healed uneventfully. 2 weeks ago he noted increased swelling. He has been trialing and breaking in a prosthesis. He was seen by his doctor on Monday. Some changes in his orthosis were recommended. Subsequently in the last 48 hours he has developed increased redness swelling and pain. This is spontaneously open last evening after he was admitted draining some purulence. He was taken to the operating room today for irrigation debridement revision of his amputation if necessary. Preoperative CT scan shows some reactive bone which could be simply secondary to having the amputation or could be secondary to chronic infection. Description of Procedure Informed consent obtained. Patient identified. He identified the operative site as the right below-knee amputation stump which I marked with my initials. A preoperative surgical timeout was performed and a preop dose of IV antibiotics was given. He was taken to the operating room positioned supine on the operating room table and a spinal anesthetic and sedation were administered. A tourniquet was applied to the right thigh. The limb was exsanguinated with gravity and tourniquet inflated 275 mmHg. The leg was pre-scrubbed with Betadine and then prepped and draped with Betadine paint in the usual sterile fashion. DVT prophylaxis with mechanical devices on the contralateral leg and postoperatively early mobility and likely Lovenox with mechanical devices. The patient had redness and swelling of the BKA stump with what appeared to be a note on ruptured abscess on the central medial portion of the incision and a ruptured abscess central lateral over the prior incision. Positioned supine. The prior incision was opened up over a span of about 12 cm. Ruptured abscess laterally was ellipsed out. The skin margins were eventually ellipsed. Incision of the evolving abscess more medially revealed the drainage of purulent material and a culture was taken. Blunt dissection revealed a cavity in the subcutaneous tissues distally. There was further tracking down towards the distal tibia stump. There was no tracking towards the fibular stump. Dissection was carried down and what was estimated to be the attachment of the posterior muscle flap to the anterior soft tissues in order to preserve this muscle flap. Dissection was carried down to the tibia. Following the path of the granulation tissue it appeared that there was a tract going down to the distal tibia. The distal tibia was subperiosteally exposed. There was soft reactive bone noted around the tibia which was thoroughly excised and sent for biopsy and culture. A revision of the amputation was performed removing half centimeter of distal tibial bone and then beveling it anteriorly and smoothing it with a rongeur. A thorough layer debridement was then performed removing the scar tissue and granulation tissue from deep to superficial. The distal fibula was identified exposed and found free of granulation tissue. The distal 1 to 1- 1/2 cm was then resected to make it shorter than the tibia. This was good hard bone. This was sent for biopsy and culture. The distal tibia resection was sent for biopsy and culture and that bone when it was resected was also good and hard. There were no spongy areas remaining. The granulation tissue proximal and distal was thoroughly debrided. The skin margins were thoroughly excised and then irrigation was performed with 3 L of saline containing antibiotics pulsatile lavage and additional 1 L of sterile saline. Tourniquet was let down after 65 minutes of inflation and meticulous hemostasis was obtained. The posterior muscle flap was reapproximated to the anterior fascia using multiple interrupted #1 PDS sutures. Drains were inserted deep and superficial. The deep drain was brought out laterally and the superficial drain brought out medially. The skin was then closed with near far far near in horizontal mattress and simple stitches using 2-0 nylon. A dressing consisting of Xeroform 4 x 4's ABDs Kerlix and an Jin wrap was applied. The patient then awakened from anesthesia taken to the recovery in stable condition. Specimens were as mentioned above. Counts were correct blood loss was estimated to be 50 cc. The patient was given a dose of TXA intraoperatively. There were no complications. Patient is then taken to the recovery room in stable condition. Plan is to follow-up on cultures administer broad-spectrum antibiotics. Obtain x-ray. Underneath the suspected abscess areas was bloody seropurulent fluid. I attest to the content of the Intraoperative Record and any orders documented therein. Any exceptions are noted below.
--- NOTE | 2020-01-22 14:05 | Anesthesiology Progress Note ---
Date of Service January 22, 2020 Anesthesia Post Procedure Vital Signs Vital Signs: Temp Pulse Pulse Pulse Resp BP BP 01/22/20 14:00 36.0 C L 72 24 93/61 L 01/22/20 13:50 79 19 90/50 L 01/22/20 13:40 75 20 95/61 L 01/22/20 13:30 68 19 81/52 L 01/22/20 13:22 36.0 C L 65 16 92/49 L 01/22/20 10:01 36.6 C 73 18 01/22/20 07:30 36.7 C 70 18 01/21/20 22:23 37 C 84 16 01/21/20 21:51 78 16 01/21/20 20:26 01/21/20 20:00 01/21/20 18:25 74 20 01/21/20 16:27 36.5 C 85 20 106/65 BP Pulse Ox 01/22/20 14:00 92 01/22/20 13:50 95 01/22/20 13:40 95 01/22/20 13:30 95 01/22/20 13:22 96 01/22/20 10:01 102/57 L 93 01/22/20 07:30 95/60 L 94 01/21/20 22:23 110/66 98 01/21/20 21:51 107/71 98 01/21/20 20:26 119/54 L 01/21/20 20:00 114/50 L 01/21/20 18:25 105/50 L 97 01/21/20 16:27 99 Pain Intensity Right Leg: Pain Intensity: 0 Transfer of Care Handoff Completed per policy Notes Mental Status: alert / awake / arousable and participated in evaluation Patient Amnestic to Procedure: Yes Nausea / Vomiting: adequately controlled Pain: adequately controlled Airway Patency, RR, SpO2: stable & adequate BP & HR: stable & adequate Hydration State: stable & adequate Anesthetic Complications: no major complications apparent
--- NOTE | 2020-01-22 14:11 | XRay Report ---
XR tibia fibula RT 2V HISTORY: 49 years-old Male pain acute right lower leg pain with history of prior surgery COMPARISON: CT of the right tibia and fibula 01/21/2020 TECHNIQUE: 2 views of the right tibia and fibula FINDINGS: Moderate to extensive soft tissue swelling of the right lower leg. Postoperative changes of prior bel ow the knee amputation. Associated periosteal reaction of the distal tibia and fibula appear unchange d. There are 2 surgical drainage catheters which have been placed in the interval. Scattered foci of subcutaneous emphysema suggested. Vascular calcifications. No definite radiopaque foreign body. No ac jessie fracture. IMPRESSION: 1. Postoperative changes of prior below the knee amputation. Periostitis of the distal tibia and fibu la at the resection site is redemonstrated suspicious for osteomyelitis. 2. Extensive soft tissue swelling at the amputation stump with interval placement of 2 surgical drain age catheters. ACT 112: Negative or not required by law. The above report was generated using voice recognition software. It may contain grammatical, syntax o r spelling errors. Electronically signed by: Lucio Schumacher M.D. 01/22/2020 2:09 PM
--- NOTE | 2020-01-22 16:55 | Operative Report ---
Post Operative Report Pre & Post Diagnosis Operation Date: 01/22/20 08:00 Pre-Op Diagnosis: Right Lower Extremity Osteomylitis. Post-Op Diagnosis: Right Lower Extremity Osteomylitis. I identified the patient and participated in the time-out.: Yes Procedure Operation Date: 01/22/20 08:00 Actual Procedures p Incision, Irrigation and Debridement Right Below the Knee Amputation Revision(Right) - Lauro Wilson MD Surgeon Lauro Wilson MD Code And Test Clerk Dr. Lowe Estimated Blood Loss 50 Findings Consistent with Post-Op Diagnosis Specimens Bone and soft tissues R below knee stump Drains two Complications none Disposition Accompanied Patient To Recovery: Yes Disposition: Recovery Room Description of Procedure Supine, standard prep and drape Tourniquet Incision, Irrigation and Debridement Right Below the Knee Amputation Revision Please see Dr Wilson's procedure notes for specific details I was present throughout the case, assisted for wound closure and transferred the patient to PACU in stable condition I attest to the content of the Intraoperative Record and any orders documented therein. Any exceptions are noted below.
--- NOTE | 2020-01-22 18:38 | Progress Notes ---
DATE: 01/22/2020 Some discomfort. We talked about pain management. He is eating and reports no other problems. We discussed the findings of the surgery. No drain output is recorded. His urine output is adequate. Vital signs are stable. The dressing is clean and dry. Continue IV antibiotics. He can be up with PT and walker. He does not like crutches. Follow up on cultures to determine further treatment.
[2020-01-22] MEDS ORDERED: OXYCODONE/ACETAMINOPHEN 5mg/325mg TAB PO STA (19:16)
[2020-01-22] MEDS: DAPTOmycin 550 MG in SYRINGE 0 ML IV SCH (20:33)
[2020-01-23] MEDS: OXYCODONE/ACETAMINOPHEN 5mg/325mg TAB PO PRN ×2 (01:04→10:17)
[2020-01-23] MEDS: metroNIDAZOLE 500 MG/100 ML BAG IV SCH ×3 (01:06→16:40)
[2020-01-23] MEDS: MoRPHine SULFATE 4 MG/ML 1 ML CARP\\VIAL IV PRN ×2 (06:23→14:01)
[2020-01-23] MEDS ORDERED: ENOXAPARIN INJ 30 MG/0.3 ML SYR SQ SCH (07:00)
[2020-01-23 07:06] LABS: Basophils # (auto) 0.05 K/uL (0-0.2); Basophils % (auto) 0.5 %; Eosinophils % (auto) 7.3 %; Hematocrit (blood only) 36.7 % (42-52); Hemoglobin 11.6 g/dL (14.0-18.0); Immature Granulocytes # (auto) 0.02 K/uL (0.00-0.02); Immature Granulocytes % (auto) 0.2 %; Lymphocytes # (auto) 1.99 K/uL (1.2-3.4); Lymphocytes % (auto) 20.6 %; Mean Corpuscular Hemoglobin 29.9 pg (25-34); Mean Corpuscular Hgb Conc 31.6 g/dL (32-36); Mean Corpuscular Volume 94.6 fL (80-100); Monocytes # (auto) 0.83 K/uL (0.11-0.59); Monocytes % (auto) 8.6 %; Neutrophils # (auto) 6.05 K/uL (1.4-6.5); Neutrophils % (auto) 62.8 %; Platelet Count 345 K/uL (130-400); RDW Coefficient of Variation 15.2 % (11.5-14.5); RDW Standard Deviation 51.7 fL (36.4-46.3); Red Blood Count 3.88 M/uL (4.7-6.1); White Blood Count 9.64 K/uL (4.8-10.8)
--- NOTE | 2020-01-23 07:31 | Orthopedic Progress Note ---
Date of Service January 23, 2020 Assessment & Plan (1) Abscess of skin and subcutaneous tissue: May be out of bed, NWB RLE. No use of prosthesis Continue ice and elevation of right leg frequently to prevent swelling. Will continue Hemovac today Keep dressings clean and dry. Will plan to change tomorrow. Continue IV antibiotics as ordered, cultures pending, ID consult pending. regular diet Lovenox started this morning for DVT prophylaxis. 30mg BID x 2-4 weeks post op. Will re-eval on Monday and discuss today's findings with Dr. Wilson. Call with questions or concerns. Present on Admission?: Yes Admission and Anticipated Discharge Date Admission Date: January 21, 2020 Subjective Resting in bed. Doing well. Pain improved and "as expected". States that it is intermittent in intensity. Tolerating regular diet, no diarrhea, constipation, nausea or vomiting. No chest pain or shortness of breath. Has been out of bed. Physical Exam Physical Exam: Right lower extremity stump with clean and dry dressings. Hemovac in place, functioning. Able to lift right leg independently. Tolerates full ROM right knee. Results & Data ([facility]) Vital Signs (Past 12 Hours) Vital Signs Temp Pulse Pulse Resp BP Pulse Ox 01/23/20 06:58 37.0 C 76 18 102/67 91 01/23/20 03:40 37.1 C 71 20 100/59 L 93 01/23/20 00:08 37.0 C 84 20 100/61 93 01/22/20 19:48 36.6 C 83 16 105/62 95 Laboratory Results 01/23/20 01/23/20 01/23/20 Range/Units 06:47 06:47 06:47 WBC 9.64 (4.8-10.8) K/uL RBC 3.88 L (4.7-6.1) M/uL Hgb 11.6 L (14.0-18.0) g/dL Hct 36.7 L (42-52) % MCV 94.6 (80-100) fL MCH 29.9 (25-34) pg MCHC 31.6 L (32-36) g/dL RDW Std Deviation 51.7 H (36.4-46.3) fL RDW Coeff of Caitlin 15.2 H (11.5-14.5) % Plt Count 345 (130-400) K/uL MPV 10.0 (7.4-10.4) fL Immature Gran % (Auto) 0.2 % Neut % (Auto) 62.8 % Lymph % (Auto) 20.6 % [place] % (Auto) 8.6 % Eos % (Auto) 7.3 % Baso % (Auto) 0.5 % Immature Gran # (Auto) 0.02 (0.00-0.02) K/uL Neut # (Auto) 6.05 (1.4-6.5) K/uL Lymph # (Auto) 1.99 (1.2-3.4) K/uL [place] # (Auto) 0.83 H (0.11-0.59) K/uL Eos # (Auto) 0.70 H (0-0.5) K/uL Baso # (Auto) 0.05 (0-0.2) K/uL ESR Pending Sodium Pending Potassium Pending Chloride Pending Carbon Dioxide Pending Anion Gap Pending BUN Pending Creatinine Pending Est Cr Clr Drug Dosing Pending Est GFR ( Amer) Pending Est GFR (Non-Af Amer) Pending BUN/Creatinine Ratio Pending Glucose Pending Calcium Pending (1) Abscess of skin and subcutaneous tissue Laterality: right Site of cutaneous abscess: extremity Site of cutaneous abscess of extremity: lower extremity Qualified Code(s): L02.415 - Cutaneous abscess of right lower limb
[2020-01-23 07:36] LABS: BUN Creatinine Ratio 12.5 (10-20); Calcium 7.5 mg/dl (8.5-10.1); Creatinine Clr Calc Pharmacy 129.6 ml/min; Est GFR (African American) 105.8; Est GFR (Non-African American) 91.3
[2020-01-23] MEDS: CEFEPIME 2,000 MG in SYRINGE 7.5 ML IV SCH (09:02)
--- NOTE | 2020-01-23 10:38 | Infectious Disease Progress Nt ---
Date of Service January 23, 2020 Assessment & Plan (1) Abscess of skin and subcutaneous tissue: continue dapto, will stop other abx. await final wound cultures. will likely require several weeks of abx due to osteo. final recs will depend on culture data. (2) Osteomyelitis: Admission and Anticipated Discharge Date Admission Date: January 21, 2020 Subjective all wound cultures are growing S. aureus, sensitivities pending. afebrile. remains on broad spectrum abx, tolerating well. blood cultures negative, wbc improved to 9 today Results & Data ([facility]) Vital Signs (Past 12 Hours) Vital Signs Temp Pulse Pulse Resp BP Pulse Ox 01/23/20 06:58 37.0 C 76 18 102/67 91 01/23/20 03:40 37.1 C 71 20 100/59 L 93 01/23/20 00:08 37.0 C 84 20 100/61 93 Laboratory Results Microbiology 01/22/20 12:30 Knee,Right Gram Stain - Final 01/22/20 12:30 Knee,Right Aerobic and Anaerobic Culture - Preliminary Staphylococcus aureus 01/22/20 12:30 Knee,Right Gram Stain - Final 01/22/20 12:30 Knee,Right Aerobic and Anaerobic Culture - Preliminary Staphylococcus aureus 01/22/20 12:30 Leg,Right Gram Stain - Final 01/22/20 12:30 Leg,Right Aerobic and Anaerobic Culture - Preliminary Staphylococcus aureus 01/22/20 11:29 Leg,Right Gram Stain - Final 01/22/20 11:29 Leg,Right Aerobic and Anaerobic Culture - Preliminary Staphylococcus aureus 01/21/20 17:30 Blood Aerobic Blood Culture - Preliminary No growth in Aerobic bottle after 24 hours. 01/21/20 17:30 Blood Anaerobic Blood Culture - Preliminary No growth in Anaerobic bottle after 24 hours. 01/21/20 18:49 Blood Aerobic Blood Culture - Preliminary No growth in Aerobic bottle after 24 hours. 01/21/20 18:49 Blood Anaerobic Blood Culture - Preliminary No growth in Anaerobic bottle after 24 hours. PG Care Time/CCT Total # of Minutes Spent Total Time Spent with Patient: Total time spent is greater than 50% in coordination of care (as documented) at patient's floor/unit and/or counseling patient: Coding Level of Care Code 80208 Subseq Hosp Care Lvl 1 Diagnoses Abscess of skin and subcutaneous tissue L02.415 Laterality: right Site of cutaneous abscess: extremity Site of cutaneous abscess of extremity: lower extremity Osteomyelitis M86.9 Laterality: right Osteomyelitis location: tibia Osteomyelitis type: unspecified type (1) Abscess of skin and subcutaneous tissue Laterality: right Site of cutaneous abscess: extremity Site of cutaneous abscess of extremity: lower extremity Qualified Code(s): L02.415 - Cutaneous abscess of right lower limb (2) Osteomyelitis Laterality: right Osteomyelitis location: tibia Osteomyelitis type: unspecified type Qualified Code(s): M86.9 - Osteomyelitis, unspecified
--- NOTE | 2020-01-23 13:41 | Hospitalist Progress Note ---
Date of Service January 23, 2020 Assessment & Plan (1) Abscess of skin and subcutaneous tissue: R BKA stump abscess and osteomyelitis S/P I and D Wound culture growing staph aureus Will follow final culture result and sensitivities Continue daptomycin Other antibiotics discontinued Pain control Ortho recommendations noted ID recommendations noted Hx Igbrkgx-Nmusx-Uebla disease History postop DVT on Aspirin (Coumadin noncompliance as per records) past tobacco abuse DVT ppx - SCD for now Hb dropped by 1g from yesterday. Maybe due to blood loss from surgery vs dilutional Will hold pharmacologic agent for now and monitor Admission and Anticipated Discharge Date Admission Date: January 21, 2020 Subjective Patient seen and examined Had I/D yesterday Wound culture growing staph aureus Denied any fevers, chills, nausea, vomiting Reports only pain at op site which he stated is well controlled Physical Exam Constitutional: well developed and well nourished; no acute distress Eyes: PERRL, conjunctivae normal, anicteric sclerae ENMT: external ear and nose normal, oropharynx normal Respiratory: normal respiratory effort, lungs clear to auscultation Cardiovascular: RRR, no murmur, no edema Gastrointestinal (Abdomen): normal bowel sounds, soft, nontender, no hepatosplenomegaly Musculoskeletal: Clean dressing over right BKA op site with drain in situ Neurologic: PERRL, EOMI, accommodation nl, no face palsy, no dysarthria Psychiatric: A+Ox3, euthymic affect Results & Data Results & Data ([facility]) Vital Signs (Past 12 Hours) Vital Signs Temp Pulse Pulse Resp BP Pulse Ox 01/23/20 11:12 37.3 C 77 18 107/66 92 01/23/20 06:58 37.0 C 76 18 102/67 91 01/23/20 03:40 37.1 C 71 20 100/59 L 93 Laboratory Results Short CBC 01/23/20 Range/Units 06:47 WBC 9.64 (4.8-10.8) K/uL Hgb 11.6 L (14.0-18.0) g/dL Hct 36.7 L (42-52) % Plt Count 345 (130-400) K/uL BMP 01/23/20 06:47 Sodium 139 Potassium 4.0 Chloride 105 Carbon Dioxide 28 BUN 12 Creatinine 0.97 Glucose 110 H Calcium 7.5 L (1) Abscess of skin and subcutaneous tissue Laterality: right Site of cutaneous abscess: extremity Site of cutaneous abscess of extremity: lower extremity Qualified Code(s): L02.415 - Cutaneous abscess of right lower limb
--- NOTE | 2020-01-23 14:03 | Progress Notes ---
DATE: 01/23/2020 Followup evaluation. He has been up with PT. Some discomfort but otherwise tolerating a regular diet. He is afebrile. His vital signs are stable. Labs are reviewed. Sed rate is diminished. White count normal. Mild anemia. Labs further demonstrate positive Staph cultures on all submitted cultures including those from the bone. We will await pathology reports for more clarification about presence or absence of osteomyelitis on the permanent section specimens. Drainage out of the Hemovacs is 75 mL. The dressing is clean and dry. Hemovacs are left in. The patient is informed about the findings. Plan is to insert a PICC line for anticipated long-term IV antibiotics. Await ID recommendations regarding antibiotic therapy. PICC line consent is obtained. Informed patient that I will be out tomorrow. Dara will be in to see him, change dressing and pull drains. Would anticipate home IV antibiotics via clinical social work aide. The patient will follow up with me 2 weeks post surgery for a wound check. Do not wear prosthesis. Continue routine postoperative care with elevation, icing and pain medication.
[2020-01-23] MEDS: DAPTOmycin 550 MG in SYRINGE 0 ML IV SCH (19:17)
[2020-01-23] MEDS: KETOROLAC TROMETHAMINE 15 MG/ML VIAL IV PRN (23:59)
[2020-01-24 07:03] LABS: Hematocrit (blood only) 37.6 % (42-52); Hemoglobin 12.3 g/dL (14.0-18.0); Mean Corpuscular Hemoglobin 30.7 pg (25-34); Mean Corpuscular Hgb Conc 32.7 g/dL (32-36); Mean Corpuscular Volume 93.8 fL (80-100); Mean Platelet Volume 10.1 fL (7.4-10.4); Platelet Count 343 K/uL (130-400); RDW Coefficient of Variation 14.8 % (11.5-14.5); RDW Standard Deviation 50.2 fL (36.4-46.3); Red Blood Count 4.01 M/uL (4.7-6.1); White Blood Count 8.31 K/uL (4.8-10.8)
[2020-01-24 07:37] LABS: BUN Creatinine Ratio 13.4 (10-20); Calcium 8.1 mg/dl (8.5-10.1); Creatinine Clr Calc Pharmacy 151.5 ml/min; Est GFR (African American) 119.7; Est GFR (Non-African American) 103.3
--- NOTE | 2020-01-24 11:15 | Infectious Disease Progress Nt ---
Date of Service January 24, 2020 Assessment & Plan (1) Abscess of skin and subcutaneous tissue: continue dapto, suggest 6 weeks of abx due to osteo, will need weekly cbc, cmp, esr, cpk while on dapto. will need new ID provider for ongoing care as I will be leaving. (2) Osteomyelitis: Admission and Anticipated Discharge Date Admission Date: January 21, 2020 Subjective pt cultures growing MRSA, blood cultures negative, afebrile on dapto, tolerating well. for picc line. wbc improved to 8. Results & Data ([facility]) Vital Signs (Past 12 Hours) Vital Signs Temp Pulse Pulse Resp BP Pulse Ox 01/24/20 07:08 36.6 C 67 16 97/63 L 95 01/23/20 23:40 37.0 C 80 16 102/66 90 Laboratory Results Microbiology 01/22/20 12:30 Knee,Right Gram Stain - Final 01/22/20 12:30 Knee,Right Aerobic and Anaerobic Culture - Preliminary Staph aureus MRSA 01/22/20 11:29 Leg,Right Gram Stain - Final 01/22/20 11:29 Leg,Right Aerobic and Anaerobic Culture - Preliminary Staph aureus MRSA 01/21/20 17:30 Blood Aerobic Blood Culture - Preliminary No growth in Aerobic bottle after 48 hours. 01/21/20 17:30 Blood Anaerobic Blood Culture - Preliminary No growth in Anaerobic bottle after 48 hours. 01/21/20 18:49 Blood Aerobic Blood Culture - Preliminary No growth in Aerobic bottle after 48 hours. 01/21/20 18:49 Blood Anaerobic Blood Culture - Preliminary No growth in Anaerobic bottle after 48 hours. 01/22/20 12:30 Knee,Right Gram Stain - Final 01/22/20 12:30 Knee,Right Aerobic and Anaerobic Culture - Preliminary Staphylococcus aureus 01/22/20 12:30 Leg,Right Gram Stain - Final 01/22/20 12:30 Leg,Right Aerobic and Anaerobic Culture - Preliminary Staphylococcus aureus PG Care Time/CCT Total # of Minutes Spent Total Time Spent with Patient: Total time spent is greater than 50% in coordination of care (as documented) at patient's floor/unit and/or counseling patient: Coding Level of Care Code 23312 Subseq Hosp Care Lvl 1 Diagnoses Abscess of skin and subcutaneous tissue L02.415 Laterality: right Site of cutaneous abscess: extremity Site of cutaneous abscess of extremity: lower extremity Osteomyelitis M86.9 Laterality: right Osteomyelitis location: tibia Osteomyelitis type: unspecified type (1) Abscess of skin and subcutaneous tissue Laterality: right Site of cutaneous abscess: extremity Site of cutaneous abscess of extremity: lower extremity Qualified Code(s): L02.415 - Cutaneous abscess of right lower limb (2) Osteomyelitis Laterality: right Osteomyelitis location: tibia Osteomyelitis type: unspecified type Qualified Code(s): M86.9 - Osteomyelitis, unspecified
--- NOTE | 2020-01-24 12:56 | Orthopedic Progress Note ---
Date of Service January 24, 2020 Assessment & Plan (1) Abscess of skin and subcutaneous tissue: May be out of bed, NWB RLE. No use of prosthesis Continue ice and elevation of right leg frequently to prevent swelling. Dressings changed. Continue IV antibiotics as instructed by Dr. Staples x [address]. Continue Regular diet. Lovenox started this morning for DVT prophylaxis. 30mg BID x 2-4 weeks post op, at least until first follow up with Dr. Wilson on 02/05/20. Findings discussed with Dr. Wilson. Okay from ortho standpoint for discharge when medically stable. Follow up with Dr. Wilson as scheduled on 02/05/20. Please call [phone] with questions. Admission and Anticipated Discharge Date Admission Date: January 21, 2020 Subjective Patient doing well. Has been out of bed, tolerating po food. Elevating right leg. Pain controlled. Physical Exam Physical Exam: Right leg incision clean, dry, and intact. Retained sutures. He inadvertently pulled drains out through the night with his other foot getting caught on them. Dressings removed today, mild erythema and softness of tissue around incision, no fluctuance, no active drainage. Stump dressing reapplied. Results & Data ([facility]) Vital Signs (Past 12 Hours) Vital Signs Temp Pulse Resp BP Pulse Ox 01/24/20 07:08 36.6 C 67 16 97/63 L 95 Laboratory Results Microbiology 01/22/20 12:30 Gram Stain - Final Knee,Right Aerobic and Anaerobic Culture - Preliminary Staph aureus MRSA 01/22/20 11:29 Gram Stain - Final Leg,Right Aerobic and Anaerobic Culture - Preliminary Staph aureus MRSA 01/21/20 17:30 Aerobic Blood Culture - Preliminary Blood No growth in Aerobic bottle after 48 hours. Anaerobic Blood Culture - Preliminary No growth in Anaerobic bottle after 48 hours. 01/21/20 18:49 Aerobic Blood Culture - Preliminary Blood No growth in Aerobic bottle after 48 hours. Anaerobic Blood Culture - Preliminary No growth in Anaerobic bottle after 48 hours. 01/24/20 01/24/20 Range/Units 06:31 06:31 WBC 8.31 (4.8-10.8) K/uL RBC 4.01 L (4.7-6.1) M/uL Hgb 12.3 L (14.0-18.0) g/dL Hct 37.6 L (42-52) % MCV 93.8 (80-100) fL MCH 30.7 (25-34) pg MCHC 32.7 (32-36) g/dL RDW Std Deviation 50.2 H (36.4-46.3) fL RDW Coeff of Caitlin 14.8 H (11.5-14.5) % Plt Count 343 (130-400) K/uL MPV 10.1 (7.4-10.4) fL Sodium 139 (136-145) mmol/L Potassium 4.0 (3.5-5.1) mmol/L Chloride 104 (98-107) mmol/L Carbon Dioxide 30 (21-32) mmol/L Anion Gap 5.0 (3-11) BUN 11 (7-18) mg/dl Creatinine 0.83 (0.6-1.4) mg/dl Est Cr Clr Drug Dosing 151.5 ml/min Est GFR ( Amer) 119.7 Est GFR (Non-Af Amer) 103.3 BUN/Creatinine Ratio 13.4 (10-20) Glucose 95 (70-99) mg/dl Calcium 8.1 L (8.5-10.1) mg/dl (1) Abscess of skin and subcutaneous tissue Laterality: right Site of cutaneous abscess: extremity Site of cutaneous abscess of extremity: lower extremity Qualified Code(s): L02.415 - Cutaneous abscess of right lower limb
--- NOTE | 2020-01-24 13:57 | Discharge Summary ---
Date of Service January 24, 2020 Admission HPI Per Admitting Provider History obtained from patient and records. Medical history significant for Jjormqz-Abtau-Miqtq disease, history right BKA, history postop DVT (2019) on aspirin (Coumadin noncompliance as per records), past tobacco abuse. Remote [facility] confinement 2013 for L foot ulcer concerning for osteomyelitis status post toe amputation. Patient underwent right BKA at [facility] for RLE osteomyelitis last April 2019. Patient had recent outpatient follow-[place] [facility] [place]. Problems wearing prosthetic leg because stump keeps fluctuating in size as per note. Follow-up with local medical education manager recommended. Few days ago, patient noted increased redness on right BKA stump. No recollection of trauma or open wounds except for the issues with prostatic. No fever, no chills. No chest pain, no S OB. CT RLE scan done at the ER results as follows : Status post right below knee amputation. Skin thickening, subcutaneous infiltration and extensive soft tissue thickening adjacent to the remaining portions of the tibia and fibula with a few rim-enhancing fluid collections that measure up to 2.3 cm highly suggestive of abscesses. Associated periosteal reaction of the distal right tibia and fibula are highly suggestive of osteomyelitis. Patient given Daptomycin, Cefepime and Flagyl at the ER. Medical History as above Surgical History : Toe amputations, right BKA Family History : Heart disease, diabetes, prostate cancer, Ynpkcmf-Xaimv-Psmby disease Personal/Social history : Past tobacco abuse, no EtOH intake, disabled Admission Exam Per Admitting Provider GENERAL: Comfortable, pleasant, no respiratory distress SKIN: Normal color, warm HEENT: [place] palpebral conjunctivae, no ptosis, dry buccal mucosa NECK : Supple, no tenderness CHEST : CTA, no tenderness HEART : RRR, no obvious murmurs ABDOMEN: Some distention, nontender EXTREMITIES : Right BKA stump induration with tenderness NEUROLOGIC : Coherent, no facial asymmetry, no other gross focality Principal Diagnosis Right BKA stump abscess and osteomyelitis Discharge Exam Constitutional well developed and well nourished; no acute distress Eyes PERRL, conjunctivae normal, anicteric sclerae ENMT external ear and nose normal, oropharynx normal Respiratory normal respiratory effort, lungs clear to auscultation Cardiovascular RRR, no murmur, no edema Gastrointestinal (Abdomen) normal bowel sounds, soft, nontender, no hepatosplenomegaly Musculoskeletal Clean dressing over right BKA op Neurologic PERRL, EOMI, accommodation nl, no face palsy, no dysarthria Psychiatric A+Ox3, euthymic affect Discharge Data Allergies Allergy/AdvReac Type Severity Reaction Status Date / Time Penicillins Allergy Intermediate rash, hives Verified 01/21/20 17:18 tramadol AdvReac Unknown Verified 01/21/20 21:37 Consultations 01/21/20 20:22 ED Decision to Admit Stat 01/21/20 22:16 Consult Orthopedic Surgery Routine 01/22/20 09:36 Consult Infectious Diseases Routine Procedures Performed Operation Date: 01/22/20 08:00 Actual Procedures p Incision, Irrigation and Debridement Right Below the Knee Amputation Revision(Right) - Lauro Wilson MD Ordered Studies 01/21/20 16:52 CT tib/fib RT w con Stat FINDINGS: Note is made of postoperative findings consistent with a right below- knee amputation. No soft tissue gas is present. There is extensive infiltration soft tissue thickening adjacent to the remaining portions of the tibia and fibula with associated periosteal reaction of the distal remaining shafts of the right tibia and fibula. Mild associated bone loss is suspected. Extensive adjacent soft tissue thickening is noted with a 2.3 cm rim-enhancing fluid collection anterior to the remaining portion of the tibia. There is also an additional 2.1 cm rim-enhancing fluid collection anterior and lateral to the fibula. Skin thickening is noted. IMPRESSION: Status post right below knee amputation. Skin thickening, subcutaneous infiltration and extensive soft tissue thickening adjacent to the remaining portions of the tibia and fibula with a few rim-enhancing fluid collections that measure up to 2.3 cm highly suggestive of abscesses. Associated periosteal reaction of the distal right tibia and fibula are highly suggestive of osteomyelitis. Findings discussed with Dr. Jarrett at time of dictation. 01/21/20 16:54 US venous doppler LE RT Stat No evidence of deep venous thrombus within the right lower extremity. Hospital Course (1) Abscess of skin and subcutaneous tissue: R BKA stump abscess and osteomyelitis S/P Irrigation and debridement on 01/22/20 Wound culture growing MRSA Started on iv daptomycin Ortho recommendations noted ID recommendations noted Discharge on iv daptomycin via PICC line already placed for 6 weeks Needs weekly CBC, CMP, CPK, ESR. Scripts given to be followed by PCP Follow up ortho outpatient Arrangements made for home health and daptomycin with spring encaser Hx Mhxxmwj-Hmvcl-Ehdqh disease History postop DVT on Aspirin (Coumadin noncompliance as per records) past tobacco abuse Total Time Total Time Spent Total Time Spent (In Minutes): 40 Total Time Includes: Examination of the Patient, Discharge Planning and Medication Reconciliation Discharge Plan Discharge Items Patient Disposition: Home - Home Health Services Reason For Visit: RLE OSTEOMYLITIS Discharge Diagnosis: Right BKA stump abscess and osteomyelitis Activity: Resume your previous activity Non-emergency contact: Primary Care Provider and Surgeon Call non-emergency contact if: you have any medication questions Follow-up/Referrals: Emilio Silva MD [Outside Practitioners] - 01/29/20 11:20 am (01/29/2020 11:20 AM Provider Emilio Silva MD Department Internal Medicine [facility] Please note that Dr. Emmanuel Javed is not seeing patients next week. ) Lauro Wilson MD [Surgeon] - 02/05/20 1:00 pm Katelynn Jaquez DPM [Primary Care Provider] - Diet: Regular Ambulatory Orders: Complete Blood Count no Diff (Routine) Timeframe: 1 Week Location: Determined by Patient Ordered By: Hui Henry Creatine Kinase (Routine) Timeframe: 1 Week Location: Determined by Patient Ordered By: Hui Henry Comprehensive Metabolic Panel (Routine) Timeframe: 1 Week Location: Determined by Patient Ordered By: Hui Henry Erythrocyte Sedimentation Rate (Routine) Timeframe: 1 Week Location: Determined by Patient Ordered By: Hui Ocampo Attending Provider Instructions: Mr Saldaña You came to the hospital for redness and pain at right BKA. You were evaluated and found to have an infection (abscess and osteomyelitis) You required irrigation and debridement. You were also started on antibiotics. Wound culture grew MRSA. You are to be on injection daptomycin for 6 weeks. You will need to do weekly blood tests (CBC, CMP, ESR, CPK). Please follow up these results with your primary doctor. Please refer to [employer] Provider Instructions below for instructions regarding wound managment. Please ensure follow up with orthopedic surgeon as instructed It was a pleasure taking care of you. [employer] Provider Instructions: Keep dressing on right leg at all times. Keep incision covered. Redress as every other day or as needed. May get incision wet in the shower, pat incision dry. Redress after bathing. Ice and elevation as needed for pain/swelling. Do not try to wear your prosthesis. Allowed for ROM of right knee and right hip Continue antibiotics. Follow up with Dr. Wilson 2 weeks after surgery for suture removal and dressing change. Please call [phone] to reschedule or confirm your appointment. Pending Studies at Discharge: No Stand-Alone Forms: My [facility], Opioid Pain Management, Smoking Cessation Medications and DC Order Prescriptions: New daptomycin [Cubicin] 500 mg Recon Soln 500 mg Not Applicable UD 42 Days Qty: 42 RF: 0 Continued aspirin [Aspirin Low Dose] 81 mg Tablet,Delayed Release (Dr/Ec) 81 mg PO DAILY RF: 0 oxycodone-acetaminophen 5-325 mg tablet 1 tab PO Q6H PRN (Reason: Pain) RF: 0 Discharge Orders: Discharge Order (Routine); Ordered 01/24/20 Ordered By: Hui Gaines/Other Patient Handouts: DVT, Osteomyelitis Dc Admission Data Admit Date/Time: 01/21/20 21:18 Attending Provider: Hui Henry I. Admit Provider: Franck Ruiz Primary Care Provider: Katelynn Jaquez Other Providers: Franck Ruiz ; Lauro Wilson ; Dara Staples Other Interventions: Discharge Summary Assessment (RN) Last Done: 01/24/20 14:06 DC Date/Time DO NOT enter until pt leaves facility: 01/24/20 17:26
[2020-01-24] MEDS: DAPTOmycin 550 MG in SYRINGE 0 ML IV SCH (15:26)
== END 2020-01-24 17:26 | disposition home health service (06) | DRG 565 ==
LOC: ED 16:24 → 3E 21:18

== ENCOUNTER 2023-05-01 15:30 | Inpatient (IN) ==
[2023-05-01 19:21] LABS: Basophils # (auto) 0.05 K/uL (0-0.2); Basophils % (auto) 0.3 %; Eosinophils # (auto) 0.01 K/uL (0-0.50); Eosinophils % (auto) 0.1 %; Hematocrit (blood only) 44.8 % (42.0-52.0); Hemoglobin 15.6 g/dl (14.0-18.0); Immature Granulocytes # (auto) 0.11 K/uL (0.01-0.20); Immature Granulocytes % (auto) 0.6 %; Lymphocytes # (auto) 1.31 K/uL (1.2-3.4); Lymphocytes % (auto) 7.6 %; Mean Corpuscular Hemoglobin 32.5 pg (25.0-34.0); Mean Corpuscular Hgb Conc 34.8 g/dL (32.0-36.0); Mean Corpuscular Volume 93.3 fL (80.0-100.0); Mean Platelet Volume 10.6 fL (9.4-12.4); Monocytes # (auto) 1.07 K/uL (0.11-0.59); Monocytes % (auto) 6.2 %; Neutrophils # (auto) 14.68 K/uL (1.40-6.50); Neutrophils % (auto) 85.2 %; Platelet Count 230 K/uL (130-400); RDW Coefficient of Variation 12.7 % (11.5-14.5); RDW Standard Deviation 43.9 fL (36.4-46.3); White Blood Count 17.23 K/ul (4.8-10.8)
[2023-05-01] MEDS ORDERED: SODIUM CHLORIDE 0.9% 1000ML 1,000 ML IV ONE (19:26)
[2023-05-01 19:34] LABS: Albumin Globulin Ratio 0.9 (0.9-2); Albumin Level 3.4 gm/dl (3.4-5.0); BUN Creatinine Ratio 10.7 (10-20); Bilirubin,Total 1.6 mg/dl (0.2-1.0); Creatinine Clr Calc Pharmacy 111.4 ml/min; Est GFR (African American) 87.1 ml/min; Est GFR (Non-African American) 75.1 ml/min; Globulin 3.7 gm/dl (2.5-4.0); Potassium 4.6 mmol/L (3.5-5.1); Total Protein 7.1 gm/dl (6.0-8.3)
[2023-05-01] MEDS ORDERED: OPTIRAY 320 100ml IV ONE (21:05)
--- NOTE | 2023-05-01 21:32 | Emergency Department Note ---
Impression & Plan SIRS (systemic inflammatory response syndrome), Leukocytosis, Elevated procalcitonin ED Provider Note HISTORY OF PRESENT ILLNESS: Patient is a 52-year-old male presenting with general malaise, vomiting and diarrhea for the last 3 days. Patient reports feeling generally unwell for the last 3 days. He has had multiple episodes of vomiting and diarrhea daily for the last 3 days. He describes his diarrhea as watery. Denies any recent sick contact exposures. Denies any notable fevers at home. He denies any abdominal pain. Denies any chest pain or shortness of breath. He denies any recent travel or camping. Denies any rashes. ROS: as above PHYSICAL EXAM: Constitutional: Patient appears in no acute distress. HENT: Head: Normocephalic and atraumatic. Eyes: EOMI, PERRL Mouth/Throat: Mucous membranes moist. Neck: Trachea midline. Neck supple. Cardiovascular: RRR, No murmurs, rubs or gallops. Intact distal pulses. Pulmonary/Chest: No respiratory distress. Breath sounds clear and equal bilaterally. No wheezes or rales. Abdominal: Abdomen soft, no tenderness, rebound or guarding. Musculoskeletal: Right below the knee amputation. Left great toe amputation Skin: Warm and dry. No rash, erythema, pallor or cyanosis Psychiatric: Appropriate mood and affect for situation. Neurological: Alert and keenly responsive. CN II-XII grossly intact, moving all extremities equally and fully. MDM: - Vitals signs showed tachycardia - History obtained via patient. Patient presents with general malaise and diarrhea. Reports symptoms been ongoing for the last 3 days. He reports multiple episodes of vomiting and diarrhea daily for the last 3 days. Denies any recent travel or recent sick contact exposures. Denies any notable fevers at home. Denies any abdominal pain. Denies any chest pain or shortness of breath - Chronic conditions affecting care: osteomyelitis; Xsjnkvd-Huegq-Teent syndrome - Differential diagnoses include, but are not limited to: UTI; pneumonia; colitis; viral syndrome - Order placed for continuous cardiac monitoring. At this time, monitor showed rate of 75 bpm with normal sinus rhythm, per my interpretation. - External medical records reviewed. - Laboratory workup interpreted by myself showed leukocytosis (WBC 17.23) with left shift; elevated procalcitonin (17.96); normal lactate; slight hyponatremia (Na 133); elevated total bili (1.6); normal lipase - Blood cultures obtained. - CT abdomen/pelvis wo contrast negative for acute pathology. - Patient given a total of 3L NS in ER. - Viral respiratory panel negative. - Unknown source for patient's symptoms at this time. However, started on empiric antibiotics. IV vancomycin ordered. Patient has anaphylaxis allergy to penicillins. - Patient currently meets SIRS criteria, given no source of infection at this time - Discussion was had with social worker school about patient's case and need for admission - Hospitalist, Dr. Nj, consulted for admission - Patient admitted to [facility] service for further evaluation and management. I provided 38 minutes of critical care time to this patient's care outside of billable procedures. ASSESSMENT AND PLAN: Diagnosis: SIRS; leukocytosis; diarrhea; elevated procalcitonin Plan: admit Past Med/Surg History Medical History (Updated 05/02/23 @ 00:51 by Jackie Ngo MD) Vtvgvjs-Ajywb-Xdjbf disease Osteomyelitis Family History Other No significant family history Social History Smoking Status: Current every day smoker Second Hand Exposure: No; Do You Dip or Chew Tobacco: No; Hx Substance Use: No Preferred Language: Irish Communication Ability: Effective Oliver Filter Operator Required: No Beliefs That Will Affect Care: None Current Living Situation: Spouse and Family Feels Safe at Home: Yes Assistive Devices: Special Shoe and Wheelchair Allergies Allergies Allergy/AdvReac Type Severity Reaction Status Date / Time Penicillins Allergy Intermediate Anaphylaxis Verified 05/01/23 22:30 tramadol AdvReac Unknown Unknown Verified 05/01/23 22:29 Home Meds Home Medications Medication Instructions Recorded Confirmed acetaminophen 500 mg tablet 1,500 mg PO DAILY PRN Pain 05/01/23 05/01/23 Results & Data (ED) Vital Signs Vital Signs - 24 hr 05/01/23 15:42 05/01/23 20:54 05/01/23 23:12 Temperature 36.8 C Temperature Source Temporal Artery Scan Pulse Rate 116 H Pulse Rate [Apical] 88 76 Respiratory Rate 18 31 H 24 Respiratory Effort / Characteristics Non-Labored Non-Labored Spontaneous Respiratory Depth Normal Normal Blood Pressure 109/60 Blood Pressure [Left Arm] 118/67 104/62 Blood Pressure Mean 76 Blood Pressure Mean [Left Arm] 84 76 Pulse Oximetry 90 92 90 Oxygen Delivery Method Room Air Room Air Sepsis Recent Fever Within 48 Hours No Sepsis New/Unexplained Change in Mental Status No Sepsis Action Taken by Nursing No Action Required Laboratory Data 05/01/23 18:45 05/01/23 18:45 Lab Results 05/01/23 05/01/23 05/01/23 Range/Units 18:45 18:45 22:42 WBC 17.23 H (4.8-10.8) K/ul RBC 4.80 (4.70-6.10) M/uL Hgb 15.6 (14.0-18.0) g/dl Hct 44.8 (42.0-52.0) % MCV 93.3 (80.0-100.0) fL MCH 32.5 (25.0-34.0) pg MCHC 34.8 (32.0-36.0) g/dL RDW Std Deviation 43.9 (36.4-46.3) fL RDW Coeff of Caitlin 12.7 (11.5-14.5) % Plt Count 230 (130-400) K/uL MPV 10.6 (9.4-12.4) fL Immature Gran % (Auto) 0.6 % Neut % (Auto) 85.2 % Lymph % (Auto) 7.6 % [place] % (Auto) 6.2 % Eos % (Auto) 0.1 % Baso % (Auto) 0.3 % Neut # (Auto) 14.68 H (1.40-6.50) K/uL Lymph # (Auto) 1.31 (1.2-3.4) K/uL [place] # (Auto) 1.07 H (0.11-0.59) K/uL Eos # (Auto) 0.01 (0-0.50) K/uL Baso # (Auto) 0.05 (0-0.2) K/uL Immature Gran # (Auto) 0.11 (0.01-0.20) K/uL Sodium 133 L (136-145) mmol/L Potassium 4.6 (3.5-5.1) mmol/L Chloride 99 (98-107) mmol/L Carbon Dioxide 25 (21-32) mmol/L Anion Gap 9 (3-11) BUN 12 (6-23) mg/dl Creatinine 1.12 (0.6-1.4) mg/dl Est Cr Clr Drug Dosing 111.4 ml/min Est GFR ( Amer) 87.1 ml/min Est GFR (Non-Af Amer) 75.1 ml/min BUN/Creatinine Ratio 10.7 (10-20) Glucose 109 H (70-99(Fasting)) mg/dl Lactate (0.4-2.0) mmol/L Calcium 9.0 (8.6-10.3) mg/dl Total Bilirubin 1.6 H (0.2-1.0) mg/dl AST 24 (13-39) U/L ALT 23 (7-52) U/L Alkaline Phosphatase 132 H (34-104) U/L Total Protein 7.1 (6.0-8.3) gm/dl Albumin 3.4 (3.4-5.0) gm/dl Globulin 3.7 (2.5-4.0) gm/dl Albumin/Globulin Ratio 0.9 (0.9-2) Lipase 17 (11-82) U/L Procalcitonin 17.96 H (0-0.5) ng/ml Adenovirus (PCR) (NotDetected) B. pertussis DNA (PCR) (NotDetected) B.parapertussis DNA PCR (NotDetected) C. pneumoniae DNA (PCR) (NotDetected) Coronavirus OC43 (PCR) (NotDetected) Coronavirus HKU1 (PCR) (NotDetected) Coronavirus 229E (PCR) (NotDetected) SARS-CoV-2 (PCR) (NotDetected) Coronavirus NL63 (PCR) (NotDetected) Human Metapneumovir PCR (NotDetected) Influenza Type A (PCR) (NotDetected) Influenza Type B (PCR) (NotDetected) M. pneumoniae (PCR) (NotDetected) Parainfluenza 1 (PCR) (NotDetected) Parainfluenza 2 (PCR) (NotDetected) Parainfluenza 3 (PCR) (NotDetected) Parainfluenza 4 (PCR) (NotDetected) RSV (PCR) (NotDetected) Entero/Rhino (PCR) (NotDetected) 05/01/23 05/02/23 Range/Units Unknown 00:03 WBC (4.8-10.8) K/ul RBC (4.70-6.10) M/uL Hgb (14.0-18.0) g/dl Hct (42.0-52.0) % MCV (80.0-100.0) fL MCH (25.0-34.0) pg MCHC (32.0-36.0) g/dL RDW Std Deviation (36.4-46.3) fL RDW Coeff of Caitlin (11.5-14.5) % Plt Count (130-400) K/uL MPV (9.4-12.4) fL Immature Gran % (Auto) % Neut % (Auto) % Lymph % (Auto) % [place] % (Auto) % Eos % (Auto) % Baso % (Auto) % Neut # (Auto) (1.40-6.50) K/uL Lymph # (Auto) (1.2-3.4) K/uL [place] # (Auto) (0.11-0.59) K/uL Eos # (Auto) (0-0.50) K/uL Baso # (Auto) (0-0.2) K/uL Immature Gran # (Auto) (0.01-0.20) K/uL Sodium (136-145) mmol/L Potassium (3.5-5.1) mmol/L Chloride (98-107) mmol/L Carbon Dioxide (21-32) mmol/L Anion Gap (3-11) BUN (6-23) mg/dl Creatinine (0.6-1.4) mg/dl Est Cr Clr Drug Dosing ml/min Est GFR ( Amer) ml/min Est GFR (Non-Af Amer) ml/min BUN/Creatinine Ratio (10-20) Glucose (70-99(Fasting)) mg/dl Lactate 1.1 (0.4-2.0) mmol/L Calcium (8.6-10.3) mg/dl Total Bilirubin (0.2-1.0) mg/dl AST (13-39) U/L ALT (7-52) U/L Alkaline Phosphatase (34-104) U/L Total Protein (6.0-8.3) gm/dl Albumin (3.4-5.0) gm/dl Globulin (2.5-4.0) gm/dl Albumin/Globulin Ratio (0.9-2) Lipase (11-82) U/L Procalcitonin (0-0.5) ng/ml Adenovirus (PCR) Not Detected (NotDetected) B. pertussis DNA (PCR) Not Detected (NotDetected) B.parapertussis DNA PCR Not Detected (NotDetected) C. pneumoniae DNA (PCR) Not Detected (NotDetected) Coronavirus OC43 (PCR) Not Detected (NotDetected) Coronavirus HKU1 (PCR) Not Detected (NotDetected) Coronavirus 229E (PCR) Not Detected (NotDetected) SARS-CoV-2 (PCR) Not Detected (NotDetected) Coronavirus NL63 (PCR) Not Detected (NotDetected) Human Metapneumovir PCR Not Detected (NotDetected) Influenza Type A (PCR) Not Detected (NotDetected) Influenza Type B (PCR) Not Detected (NotDetected) M. pneumoniae (PCR) Not Detected (NotDetected) Parainfluenza 1 (PCR) Not Detected (NotDetected) Parainfluenza 2 (PCR) Not Detected (NotDetected) Parainfluenza 3 (PCR) Not Detected (NotDetected) Parainfluenza 4 (PCR) Not Detected (NotDetected) RSV (PCR) Not Detected (NotDetected) Entero/Rhino (PCR) Not Detected (NotDetected) Administered Medications Vancomycin HCl 2,750 mg/ (Sodium Chloride) 555 mls @ 200 mls/hr IV NOW ONE Stop: 05/02/23 02:26 Last Admin: 05/02/23 00:09 Dose: 200 mls/hr Documented By: TWYLA Sodium Chloride (Nss 1000ml) 3,000 mls @ 999 mls/hr IV .Q3H1M ONE Stop: 05/02/23 02:40 Last Admin: 05/02/23 00:09 Dose: 999 mls/hr Documented By: TWYLA Discontinued Medications Sodium Chloride (Nss 1000ml) 1,000 mls @ 999 mls/hr IV .Q1H1M ONE Stop: 05/01/23 20:26 Last Infusion: 05/01/23 23:18 Dose: 0 mls/hr Documented By: Admin: 05/01/23 21:16 Dose: 999 mls/hr Documented By: ML Ioversol (Optiray 320 100ml) 93 ml IV ONCE ONE Stop: 05/01/23 21:06 Last Admin: 05/01/23 21:06 Dose: 93 ml Documented By: HENNA Imaging Data Radiologist's Impression: Abdomen/Pelvis CT 05/01/23 19:26 Exam(s): CT ABDOMEN + PELVIS With Contrast IV Amt: 93ML OPTIRAY 320 EXAM: CT Abdomen and Pelvis With Intravenous Contrast CLINICAL HISTORY: Reason for exam: vomiting, diarrhea. TECHNIQUE: Axial computed tomography images of the abdomen and pelvis with intravenous contrast. CTDI is 28.14 mGy and DLP is 1802.9 mGy-cm. Automated exposure control was utilized for the study. A dose lowering technique was utilized adhering to the principles of ALARA. CONTRAST: Patient received 93ML OPTIRAY 320 of IV contrast COMPARISON: No relevant prior studies available. FINDINGS: Lung bases: Right lower lobe atelectasis with tiny granuloma contained within. ABDOMEN: Liver: Unremarkable. No mass. Gallbladder and bile ducts: Unremarkable. No calcified stones. No ductal dilation. Pancreas: Fatty atrophy of the pancreas. No ductal dilation. Spleen: Granulomatous disease noted within the spleen. Adrenals: Unremarkable. No mass. Kidneys and ureters: Unremarkable. No solid mass. No hydronephrosis. Stomach and bowel: Unremarkable. No obstruction. No mucosal thickening. PELVIS: Appendix: No findings to suggest acute appendicitis. Bladder: Unremarkable. No mass. Reproductive: Unremarkable as visualized. ABDOMEN and PELVIS: Intraperitoneal space: Unremarkable. No free air. No significant fluid collection. Bones/joints: No acute fracture. No dislocation. Soft tissues: Unremarkable. Vasculature: Unremarkable. No abdominal aortic aneurysm. Lymph nodes: Unremarkable. No enlarged lymph nodes. Other findings: Elevation of the right hemidiaphragm. IMPRESSION: No acute findings in the abdomen or pelvis. Right lower lobe atelectasis with elevation of the right hemidiaphragm. Electronically signed by: Nilton Davidson MD 05/01/23 21:38 PM Discharge Plan Visit Data Chief Complaint: Vomiting Stated Complaint: VOMIT, PRONE TO INFECTION ED Provider: Jackie Ngo Discharge Problem: SIRS (systemic inflammatory response syndrome), Leukocytosis, Elevated procalcitonin Forms Stand Alone Forms: [facility] Prescriptions Prescriptions: No Action acetaminophen [Tylenol Ex Str Arthritis Pain] 500 mg Tablet 1,500 mg PO DAILY PRN (Reason: Pain) Referrals Referrals: Katelynn Jaquez DPM [Primary Care Provider] -
--- NOTE | 2023-05-01 21:39 | CT Scan Report ---
Exam(s): CT ABDOMEN + PELVIS With Contrast IV Amt: 93ML OPTIRAY 320 EXAM: CT Abdomen and Pelvis With Intravenous Contrast CLINICAL HISTORY: Reason for exam: vomiting, diarrhea. TECHNIQUE: Axial computed tomography images of the abdomen and pelvis with intravenous contrast. CTDI is 28.14 mGy and DLP is 1802.9 mGy-cm. Automated exposure control was utilized for the study. A dose lowering technique was utilized adhering to the principles of ALARA. CONTRAST: Patient received 93ML OPTIRAY 320 of IV contrast COMPARISON: No relevant prior studies available. FINDINGS: Lung bases: Right lower lobe atelectasis with tiny granuloma contained within. ABDOMEN: Liver: Unremarkable. No mass. Gallbladder and bile ducts: Unremarkable. No calcified stones. No ductal dilation. Pancreas: Fatty atrophy of the pancreas. No ductal dilation. Spleen: Granulomatous disease noted within the spleen. Adrenals: Unremarkable. No mass. Kidneys and ureters: Unremarkable. No solid mass. No hydronephrosis. Stomach and bowel: Unremarkable. No obstruction. No mucosal thickening. PELVIS: Appendix: No findings to suggest acute appendicitis. Bladder: Unremarkable. No mass. Reproductive: Unremarkable as visualized. ABDOMEN and PELVIS: Intraperitoneal space: Unremarkable. No free air. No significant fluid collection. Bones/joints: No acute fracture. No dislocation. Soft tissues: Unremarkable. Vasculature: Unremarkable. No abdominal aortic aneurysm. Lymph nodes: Unremarkable. No enlarged lymph nodes. Other findings: Elevation of the right hemidiaphragm. IMPRESSION: No acute findings in the abdomen or pelvis. Right lower lobe atelectasis with elevation of the right hemidiaphragm. Electronically signed by: Nilton Davidson MD 05/01/23 21:38 PM
[2023-05-01] MEDS ORDERED: VANCOMYCIN HCL 2,750 MG in SODIUM CHLORIDE 0.9% 500 ML IV ONE (23:40)
[2023-05-01] MEDS ORDERED: SODIUM CHLORIDE 0.9% 1000ML 3,000 ML IV ONE (23:40)
[2023-05-01] MEDS ORDERED: VANCOMYCIN CONSULT ACTIVE PRN (23:40)
[2023-05-02] LABS: Appearance Urine Clear (Clear); Bacteria Urine Automated Negative (Negative); Blood Urine 2+ (Negative); Color Urine Dark Yellow; Glucose Urine UA Negative (Negative); Ketones Urine Trace (Negative); Leukocyte Esterase Urine Trace (Negative); Nitrite Urine Positive (Negative); Protein Urine 1+ (Negative); Specific Gravity Urine > 1.045 (1.000-1.030); Urobilinogen Urine Positive (Negative)
[2023-05-02 00:17] LABS: Adenovirus PCR Not Detected (NotDetected); Bordetella parapertussis PCR Not Detected (NotDetected); Bordetella pertussis PCR Not Detected (NotDetected); Chlamydia pneumoniae PCR Not Detected (NotDetected); Coronavirus 229E PCR Not Detected (NotDetected); Coronavirus CoV-2 (COVID19)PCR Not Detected (NotDetected); Coronavirus HKU1 PCR Not Detected (NotDetected); Coronavirus NL63 PCR Not Detected (NotDetected); Coronavirus OC43PCR Not Detected (NotDetected); Human Metapneumovirus PCR Not Detected (NotDetected); Influenza A PCR Not Detected (NotDetected); Influenza B PCR Not Detected (NotDetected); Mycoplasma pneumoniae PCR Not Detected (NotDetected); Parainfluenza Virus 1 PCR Not Detected (NotDetected); Parainfluenza Virus 2 PCR Not Detected (NotDetected); Parainfluenza Virus 3 PCR Not Detected (NotDetected); Parainfluenza Virus 4 PCR Not Detected (NotDetected); Respiratory Syncytial VirusPCR Not Detected (NotDetected); Rhinovirus/Enterovirus PCR Not Detected (NotDetected)
[2023-05-02 00:31] LABS: Bilirubin Urine 1+ (Negative)
[2023-05-02] MEDS ORDERED: PROMETHAZINE HCL 12.5 MG in SODIUM CHLORIDE 0.9% 50 ML IV STA (01:18)
[2023-05-02] MEDS ORDERED: VANCOMYCIN CONSULT ACTIVE PRN (01:42)
--- NOTE | 2023-05-02 01:43 | History & Physical Report ---
Date of Service May 02, 2023 Assessment & Plan (1) SIRS (systemic inflammatory response syndrome): Plan: 52-year-old male with past med significant for osteomyelitis with staph.aureus, chronic pain left foot, Charcot admitted to disease, history of right BKA, hi story of DVT comes in because nausea vomiting and diarrhea going on for last 3 days. Present on and off fevers. Has dry cough. 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 difficile Patient has severe allergy to penicillins Empirically placed on Levaquin and Vanco for now IV fluids, n.p.o., IV antiemetics as needed We will follow cultures and response Cough Bronchitis History of tobacco abuse On Levaquin and nebs prn We will monitor Nocturnal hypoxia? requiring oxygen while sleeping nocturnal pulse ox study when stable Dark stools? hb 15.6 stool Hemoccult History of DVT Patient states many years ago As per record looks like in 2019 postop Not taking any anticoagulation DVT prophylaxis Lovenox Disposition medical floor Full code History of Present Illness Chief Complaint: Nausea vomiting and diarrhea Primary Care Provider: Katelynn Jaquez 52-year-old male with past med significant for osteomyelitis with Staph aureus, chronic pain left foot, Charcot admitted to disease, history of right BKA, history of DVT comes in because nausea vomiting and diarrhea going on for last 3 days. On and off fevers. Has dry cough. States the stools are dark. Symptoms bringing phlegm when he is coughing and its yellow. Denies any headache. Was slightly dizzy. No earache runny nose or sore throat. No chest pain or shortness of breath. Currently sitting comfortably and hemodynamically stable Past medical history as mentioned above Past surgical history right below-knee amputation, amputation of the left great toe Social history says he is cutting back on smoking last time he smoked was 1 month ago. No alcohol use. No drug use Family history mother has diabetes. Father has heart attack. Prostate cancer. Brother has Charcot Michaelle tooth, sister has Charcot Michaelle tooth Allergies Allergy/AdvReac Type Severity Reaction Status Date / Time Penicillins Allergy Intermediate Anaphylaxis Verified 05/01/23 22:30 tramadol AdvReac Unknown Unknown Verified 05/01/23 22:29 Home Medications Medication Instructions Recorded Confirmed Type acetaminophen 500 mg tablet 1,500 mg PO DAILY PRN Pain 05/01/23 05/01/23 History Past Med/Surg History Medical History (Updated 05/02/23 @ 00:51 by Jackie Ngo MD) Bygskzw-Kaiqx-Xdjzt disease Osteomyelitis Family History Other No significant family history Social History Smoking Status: Never smoker Second Hand Exposure: No; Do You Dip or Chew Tobacco: No; Hx Alcohol Use: No Hx Substance Use: No Preferred Language: Salvadorean Communication Ability: Effective Memorial Marker Designer Required: No Beliefs That Will Affect Care: None Current Living Situation: Other Current Living Situation Comment: with 2 friends Feels Safe at Home: Yes Safety Concerns: Feels Safe At This Time Assistive Devices: Special Shoe and Wheelchair Review of Systems Review of Systems: All systems reviewed & are unremarkable except as noted in HPI & below Physical Exam Physical Exam: General- Not in distress Head- atraumatic Eyes- PERRL, ENT- oropharynx clear Neck- supple, no JVD,. Lungs- clear to auscultation no wheezing or crackles. Heart- regular rhythm; no murmur, no gallop. Abdomen- normal bowel sounds, soft, nontender, no distension Extremities- s/p right bka. stump site no erythema or drainage seen. Neuro- alert, oriented x 3; PERRL,no facial palsy; no dysarthria; non focal Skin- warm & dry Results & Data Results & Data Vital Signs (Past 12 Hours) Vital Signs Temp Pulse Pulse Resp BP BP Pulse Ox 05/02/23 01:00 85 24 139/105 H 90 05/02/23 00:30 85 24 152/107 H 90 05/02/23 00:00 92 H 22 91 05/01/23 23:30 90 24 125/66 91 05/01/23 23:12 89 40 H 104/62 05/01/23 23:12 76 24 104/62 90 05/01/23 20:54 88 31 H 118/67 92 05/01/23 15:42 36.8 C 116 H 18 109/60 90 O2 Del Method 05/02/23 01:00 05/02/23 00:30 05/02/23 00:00 05/01/23 23:30 05/01/23 23:12 05/01/23 23:12 Room Air 05/01/23 20:54 Room Air 05/01/23 15:42 Diagnostic Findings Laboratory Results WBC 17.23 K/ul (4.8-10.8) H 05/01/23 18:45 RBC 4.80 M/uL (4.70-6.10) 05/01/23 18:45 Hgb 15.6 g/dl (14.0-18.0) 05/01/23 18:45 Hct 44.8 % (42.0-52.0) 05/01/23 18:45 MCV 93.3 fL (80.0-100.0) 05/01/23 18:45 MCH 32.5 pg (25.0-34.0) 05/01/23 18:45 MCHC 34.8 g/dL (32.0-36.0) 05/01/23 18:45 RDW Std Deviation 43.9 fL (36.4-46.3) 05/01/23 18:45 RDW Coeff of Caitlin 12.7 % (11.5-14.5) 05/01/23 18:45 Plt Count 230 K/uL (130-400) 05/01/23 18:45 MPV 10.6 fL (9.4-12.4) 05/01/23 18:45 Immature Gran % (Auto) 0.6 % 05/01/23 18:45 Neut % (Auto) 85.2 % 05/01/23 18:45 Lymph % (Auto) 7.6 % 05/01/23 18:45 Mcnairy % (Auto) 6.2 % 05/01/23 18:45 Eos % (Auto) 0.1 % 05/01/23 18:45 Baso % (Auto) 0.3 % 05/01/23 18:45 Neut # (Auto) 14.68 K/uL (1.40-6.50) H 05/01/23 18:45 Lymph # (Auto) 1.31 K/uL (1.2-3.4) 05/01/23 18:45 Mcnairy # (Auto) 1.07 K/uL (0.11-0.59) H 05/01/23 18:45 Eos # (Auto) 0.01 K/uL (0-0.50) 05/01/23 18:45 Baso # (Auto) 0.05 K/uL (0-0.2) 05/01/23 18:45 Immature Gran # (Auto) 0.11 K/uL (0.01-0.20) 05/01/23 18:45 Sodium 133 mmol/L (136-145) L 05/01/23 18:45 Potassium 4.6 mmol/L (3.5-5.1) 05/01/23 18:45 Chloride 99 mmol/L (98-107) 05/01/23 18:45 Carbon Dioxide 25 mmol/L (21-32) 05/01/23 18:45 Anion Gap 9 (3-11) 05/01/23 18:45 BUN 12 mg/dl (6-23) 05/01/23 18:45 Creatinine 1.12 mg/dl (0.6-1.4) 05/01/23 18:45 Est Cr Clr Drug Dosing 111.4 ml/min 05/01/23 18:45 Est GFR ( Amer) 87.1 ml/min 05/01/23 18:45 Est GFR (Non-Af Amer) 75.1 ml/min 05/01/23 18:45 BUN/Creatinine Ratio 10.7 (10-20) 05/01/23 18:45 Glucose 109 mg/dl (70-99(Fasting)) H 05/01/23 18:45 Lactate 1.1 mmol/L (0.4-2.0) 05/02/23 00:03 Calcium 9.0 mg/dl (8.6-10.3) 05/01/23 18:45 Total Bilirubin 1.6 mg/dl (0.2-1.0) H 05/01/23 18:45 AST 24 U/L (13-39) 05/01/23 18:45 ALT 23 U/L (7-52) 05/01/23 18:45 Alkaline Phosphatase 132 U/L (34-104) H 05/01/23 18:45 Total Protein 7.1 gm/dl (6.0-8.3) 05/01/23 18:45 Albumin 3.4 gm/dl (3.4-5.0) 05/01/23 18:45 Globulin 3.7 gm/dl (2.5-4.0) 05/01/23 18:45 Albumin/Globulin Ratio 0.9 (0.9-2) 05/01/23 18:45 Lipase 17 U/L (11-82) 05/01/23 18:45 Procalcitonin 17.96 ng/ml (0-0.5) H 05/01/23 22:42 Urine Color Dark Yellow 05/01/23 23:30 Urine Appearance Clear (Clear) 05/01/23 23:30 Urine pH 6.0 (4.5-7.5) 05/01/23 23:30 Ur Specific Nebo > 1.045 (1.000-1.030) H 05/01/23 23:30 Urine Protein 1+ (Negative) H 05/01/23 23:30 Urine Glucose (UA) Negative (Negative) 05/01/23 23:30 Urine Ketones Trace (Negative) H 05/01/23 23:30 Urine Blood 2+ (Negative) H 05/01/23 23:30 Urine Nitrite Positive (Negative) A 05/01/23 23:30 Urine Bilirubin 1+ (Negative) H 05/01/23 23:30 Urine Urobilinogen Positive (Negative) H 05/01/23 23:30 Ur Leukocyte Esterase Trace (Negative) H 05/01/23 23:30 Urine WBC (Auto) 1-5 /hpf (0-5) 05/01/23 23:30 Urine RBC (Auto) 10-30 /hpf (0-4) H 05/01/23 23:30 U Hyaline Cast (Auto) 1-5 /lpf (0-5) 05/01/23 23:30 U Epithel Cells (Auto) 10-20 /lpf (0-5) H 05/01/23 23:30 Urine Bacteria (Auto) Negative (Negative) 05/01/23 23:30 Adenovirus (PCR) Not Detected (NotDetected) 05/01/23 Unknown B. pertussis DNA (PCR) Not Detected (NotDetected) 05/01/23 Unknown B.parapertussis DNA PCR Not Detected (NotDetected) 05/01/23 Unknown C. pneumoniae DNA (PCR) Not Detected (NotDetected) 05/01/23 Unknown Coronavirus OC43 (PCR) Not Detected (NotDetected) 05/01/23 Unknown Coronavirus HKU1 (PCR) Not Detected (NotDetected) 05/01/23 Unknown Coronavirus 229E (PCR) Not Detected (NotDetected) 05/01/23 Unknown SARS-CoV-2 (PCR) Not Detected (NotDetected) 05/01/23 Unknown Coronavirus NL63 (PCR) Not Detected (NotDetected) 05/01/23 Unknown Human Metapneumovir PCR Not Detected (NotDetected) 05/01/23 Unknown Influenza Type A (PCR) Not Detected (NotDetected) 05/01/23 Unknown Influenza Type B (PCR) Not Detected (NotDetected) 05/01/23 Unknown M. pneumoniae (PCR) Not Detected (NotDetected) 05/01/23 Unknown Parainfluenza 1 (PCR) Not Detected (NotDetected) 05/01/23 Unknown Parainfluenza 2 (PCR) Not Detected (NotDetected) 05/01/23 Unknown Parainfluenza 3 (PCR) Not Detected (NotDetected) 05/01/23 Unknown Parainfluenza 4 (PCR) Not Detected (NotDetected) 05/01/23 Unknown RSV (PCR) Not Detected (NotDetected) 05/01/23 Unknown Entero/Rhino (PCR) Not Detected (NotDetected) 05/01/23 Unknown Impressions Abdomen/Pelvis CT 05/01/23 19:26 Exam(s): CT ABDOMEN + PELVIS With Contrast IV Amt: 93ML OPTIRAY 320 EXAM: CT Abdomen and Pelvis With Intravenous Contrast CLINICAL HISTORY: Reason for exam: vomiting, diarrhea. TECHNIQUE: Axial computed tomography images of the abdomen and pelvis with intravenous contrast. CTDI is 28.14 mGy and DLP is 1802.9 mGy-cm. Automated exposure control was utilized for the study. A dose lowering technique was utilized adhering to the principles of ALARA. CONTRAST: Patient received 93ML OPTIRAY 320 of IV contrast COMPARISON: No relevant prior studies available. FINDINGS: Lung bases: Right lower lobe atelectasis with tiny granuloma contained within. ABDOMEN: Liver: Unremarkable. No mass. Gallbladder and bile ducts: Unremarkable. No calcified stones. No ductal dilation. Pancreas: Fatty atrophy of the pancreas. No ductal dilation. Spleen: Granulomatous disease noted within the spleen. Adrenals: Unremarkable. No mass. Kidneys and ureters: Unremarkable. No solid mass. No hydronephrosis. Stomach and bowel: Unremarkable. No obstruction. No mucosal thickening. PELVIS: Appendix: No findings to suggest acute appendicitis. Bladder: Unremarkable. No mass. Reproductive: Unremarkable as visualized. ABDOMEN and PELVIS: Intraperitoneal space: Unremarkable. No free air. No significant fluid collection. Bones/joints: No acute fracture. No dislocation. Soft tissues: Unremarkable. Vasculature: Unremarkable. No abdominal aortic aneurysm. Lymph nodes: Unremarkable. No enlarged lymph nodes. Other findings: Elevation of the right hemidiaphragm. IMPRESSION: No acute findings in the abdomen or pelvis. Right lower lobe atelectasis with elevation of the right hemidiaphragm. Electronically signed by: Nilton Davidson MD 05/01/23 21:38 PM Code Status & VTE Plan VTE Prophylaxis Plan VTE Prophylaxis will be ordered: Yes
[2023-05-02] MEDS: levoFLOXacin/D5W 750 MG/150 ML BAG IV SCH (02:52)
[2023-05-02] MEDS ORDERED: ALBUT/IPRATROP 3MG/0.5MG NEB 3 ML VIAL NEB PRN (06:53)
[2023-05-02 09:06] LABS: Basophils # (auto) 0.05 K/uL (0-0.2); Basophils % (auto) 0.4 %; Eosinophils # (auto) 0.08 K/uL (0-0.50); Eosinophils % (auto) 0.6 %; Hematocrit (blood only) 36.1 % (42.0-52.0); Hemoglobin 12.2 g/dl (14.0-18.0); Immature Granulocytes # (auto) 0.09 K/uL (0.01-0.20); Immature Granulocytes % (auto) 0.7 %; Lymphocytes # (auto) 1.83 K/uL (1.2-3.4); Lymphocytes % (auto) 13.3 %; Mean Corpuscular Hemoglobin 31.7 pg (25.0-34.0); Mean Corpuscular Hgb Conc 33.8 g/dL (32.0-36.0); Mean Corpuscular Volume 93.8 fL (80.0-100.0); Mean Platelet Volume 10.9 fL (9.4-12.4); Monocytes # (auto) 0.77 K/uL (0.11-0.59); Monocytes % (auto) 5.6 %; Neutrophils # (auto) 10.91 K/uL (1.40-6.50); Neutrophils % (auto) 79.4 %; Platelet Count 207 K/uL (130-400); RDW Coefficient of Variation 12.8 % (11.5-14.5); RDW Standard Deviation 43.8 fL (36.4-46.3); Red Blood Count 3.85 M/uL (4.70-6.10); White Blood Count 13.73 K/ul (4.8-10.8)
[2023-05-02] MEDS: VANCOMYCIN HCL 1,250 MG in SODIUM CHLORIDE 0.9% 250 ML IV SCH ×2 (09:24→20:17)
[2023-05-02 09:52] LABS: BUN Creatinine Ratio 13.6 (10-20); Calcium 7.6 mg/dl (8.6-10.3); Creatinine Clr Calc Pharmacy 161.6 ml/min; Est GFR (African American) 118.4 ml/min; Est GFR (Non-African American) 102.2 ml/min; Magnesium 1.9 mg/dl (1.7-2.4); Potassium 4.5 mmol/L (3.5-5.1)
--- NOTE | 2023-05-02 10:06 | Pharmacy Report ---
Pharmacy PK ABX Note - Date of Service May 02, 2023 - Assessment and Plan Assessment 52 year old M receiving Vancomycin and Levofloxacin for empiric (48 hour stop) treatment of sepsis. * Day #1 of antimicrobial therapy. * Unclear source at this time. Possible UTI but UA appears contaminated with + nitrites, trace leukocyte esterase, 1-5 WBC, 10-20 epithelial cells. Productive cough with fevers and history of smoking so possible pneumonia. 3 days of N/V/D so possible GI source. 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 * Afebrile. Leukocytosis improved (17.2k --> 13.7k). SCr still pending for today. Procal elevated at 17.96. * Blood and urine cultures pending. Plan Vancomycin * Loading dose: 2750 mg IV x 1 * Maintenance dose: 1250 mg IV every 12 hours * Regimen is predicted to achieve target AUC/EMIR of 400-600 mg/L.hr * Level will be ordered if therapy is to extend beyond 48 hours, most likely AM of 05/04/23. Levofloxacin * 750 mg IV every 24 hours Pharmacy will continue to follow and will adjust dose/frequency as necessary. Thank you. Pharmacy has transitioned to AUC monitoring for vancomycin. AUC/EMIR is the preferred PK/PD target and is associated with decreased risk of nephrotoxicity compared to traditional trough targets.
[2023-05-02] MEDS: ADVANCED PROBIOTIC 1250 MG CAPSULE PO SCH ×2 (11:54→20:20)
[2023-05-02] MEDS: ENOXAPARIN INJ 40 MG/0.4 ML SYR SQ SCH (11:55)
--- NOTE | 2023-05-02 14:46 | Communication Note ---
Date of Service: May 02, 2023 Patient was seen and examined at bedside. 52-year-old male with PMH of OM with the Staph aureus, chronic pain left foot, Charcot disease, right BKA to infection, DVT presented to the ED 05/01 with complaint of nausea, vomiting, diarrhea for last 3 days BARMAID associated with on and off fevers. He also reported coughing for the same duration with yellow p hlegm. Denies sore throat. He is being managed for the following: Likely acute UTI Likely community-acquired pneumonia Sepsis POA Respiratory rate, pulse rate, WBC elevated and lactate normal at presentation. Procalcitonin elevated at 17.96 Admitting CTAP with no acute findings in the abdomen or pelvis. Admitting UA suggestive of UTI, patient complained of 3 days of cough with yellowish sputum at presentation Will get CXR. Follow admitting blood culture and urine culture. Patient has severe allergies to penicillin. Continue with levofloxacin and vancomycin is started 05/02. Nausea, vomiting, diarrhea: CTAP is okay. Stool studies pending. Patient on clear liquid diet, advance diet as tolerated. IV fluid if patient not tolerating p.o. intake. Antiemetics. Other chronic medical conditions: Continue with/resume home meds as and when able. History of osteomyelitis of right BKA stump with MRSA: right BKA stump looks okay History of tobacco abuse Nocturnal hypoxia: requiring oxygen while sleeping, nocturnal pulse ox study, likely tomorrow Anemia: Hb around baseline, pt complained of dark stool, fobt has been sent. follow History of DVT: Patient states many years ago. As per record looks like in 2019 postop. Not taking any anticoagulation DVT prophylaxis: Lovenox Disposition medical floor Full code On examination, patient on 3 L nasal cannula oxygen, right BKA noted, LLE negative for DVT, rest of the examination as per H&P note. For detailed information on the patient, refer to today's H&P note.
--- NOTE | 2023-05-02 16:39 | XRay Report ---
SINGLE VIEW CHEST CLINICAL HISTORY: Vomiting. Diarrhea. FINDINGS: 2 AP, portable, upright chest radiographs are obtained. No prior studies are available for comparison at the time of dictation. The cardiomediastinal silhouette is unremarkable. There is eleva tion of the right hemidiaphragm with bibasilar atelectasis. No airspace consolidation or large pleura l effusion is identified. No pneumothorax is seen. The bony thorax is grossly intact. Arthritic prado e is seen in the shoulders. IMPRESSION: No active disease in the chest. ACT 112: Negative or not required by law. Electronically signed by: Sukhdev Teague M.D. 05/02/2023 4:37 PM
[2023-05-03] MEDS: levoFLOXacin/D5W 750 MG/150 ML BAG IV SCH (01:59)
[2023-05-03] MEDS: ADVANCED PROBIOTIC 1250 MG CAPSULE PO SCH ×2 (07:50→20:47)
[2023-05-03] MEDS: ENOXAPARIN INJ 40 MG/0.4 ML SYR SQ SCH (07:50)
[2023-05-03 07:52] LABS: Hematocrit (blood only) 36.4 % (42.0-52.0); Hemoglobin 11.9 g/dl (14.0-18.0); Mean Corpuscular Hemoglobin 31.4 pg (25.0-34.0); Mean Corpuscular Hgb Conc 32.7 g/dL (32.0-36.0); Mean Platelet Volume 10.4 fL (9.4-12.4); Platelet Count 205 K/uL (130-400); RDW Coefficient of Variation 12.6 % (11.5-14.5); RDW Standard Deviation 45.3 fL (36.4-46.3); Red Blood Count 3.79 M/uL (4.70-6.10); White Blood Count 10.98 K/ul (4.8-10.8)
[2023-05-03] MEDS: VANCOMYCIN HCL 1,250 MG in SODIUM CHLORIDE 0.9% 250 ML IV SCH ×2 (07:54→20:46)
[2023-05-03 08:19] LABS: BUN Creatinine Ratio 11.8 (10-20); Calcium 7.8 mg/dl (8.6-10.3); Est GFR (African American) 116.1 ml/min; Est GFR (Non-African American) 100.2 ml/min; Magnesium 1.9 mg/dl (1.7-2.4); Potassium 3.9 mmol/L (3.5-5.1)
[2023-05-03 08:43] LABS: Phosphorus 3.6 mg/dl (2.5-4.9)
[2023-05-03] MEDS ORDERED: PROMETHAZINE HCL 12.5 MG in SODIUM CHLORIDE 0.9% 50 ML IV PRN (11:00)
[2023-05-03] MEDS: ACETAMINOPHEN 325 MG TAB PO PRN (13:34)
[2023-05-03] MEDS ORDERED: SODIUM CHLORIDE 0.9% 1000ML 1,000 ML IV SCH (13:45)
--- NOTE | 2023-05-03 14:16 | XRay Report ---
XR chest 1V portable HISTORY: 52 years-old Male increasing O2 requirement acute toxemia COMPARISON: 05/02/2023 TECHNIQUE: AP view of the chest FINDINGS: Cardiac silhouette is enlarged. Unchanged right hemidiaphragmatic elevation with right basilar opacit ies. Pulmonary vascular congestion. A pneumothorax or large pleural effusion. Degenerative changes of the shoulders and spine. IMPRESSION: 1. No acute process. 2. Unchanged right hemidiaphragmatic elevation with right basilar atelectasis. ACT 112: Negative or not required by law. The above report was generated using voice recognition software. It may contain grammatical, syntax o r spelling errors. Electronically signed by: Americo Schumacher M.D. 05/03/2023 2:15 PM
[2023-05-03] MEDS ORDERED: Heparin IV Adult Wt-Based Low-Dose *NO* Bolus Protocol IV STA (15:41)
[2023-05-03] MEDS ORDERED: HEPARIN SODIUM/DEXTROSE 25,000 UNITS/500 ML BAG IV SCH (15:45)
--- NOTE | 2023-05-03 16:26 | Cardiology Consultation ---
Date of Consultation May 03, 2023 Assessment & Plan (1) Elevated troponin I level: (2) Diaphoresis: (3) SIRS (systemic inflammatory response syndrome): (4) Elevated procalcitonin: Plan 52-year-old patient admitted with fever, leukocytosis, elevated procalcitonin suggesting sepsis. Blood cultures negative drawn on admission. Diaphoresis and ongoing nausea noted today prompting ECG and cardiology referral. Bedside echo without regional wall motion abnormality. Patient without chest discomfort. High-sensitivity troponin mildly elevated due to underlying sepsis/infectious process. Source not well-defined at this time. UTI is suggested by urinalysis with pinpoint growth on culture. Follow cultures. Consider infectious disease evaluation pending review. Antibiotics as per internal medicine. Agree with trending cardiac enzymes. Repeat ECG. Assess lower extremity venous duplex with history of DVT and intermittent fevers. Addendum: Repeat ECG without ischemic changes. No evidence of DVT per lower extremity duplex. Mild to moderate aortic regurgitation per echo. Valve anatomy not well visualized. No previous echocardiogram on record for comparison. History of Present Illness Reason for Consultation: Elevated troponin, diaphoresis. Requesting Physician: Dr. Strong Attending Physician: Rakesh Strong MD History of Present Illness 52-year-old male presented to the emergency department 05/02/2023 with diaphoresis, nausea, vomiting, and diarrhea x3 days. Intermittent fevers, dry cough, and dark stools also reported. Admitted to the medical floor and started on empiric antibiotics for presumed sepsis. Blood cultures negative after 48 hours. History of chronic left foot pain, Charcot joint, osteomyelitis with Staph aureus status post right-sided BKA and DVT. Cardiology consult requested due to ongoing diaphoresis and elevated high- sensitivity troponin. Patient seen and examined at the bedside. Resting comfortably although nursing reports significant diuresis throughout the day. Patient reports diaphoresis ongoing for approximately 3 days. Denies any chest discomfort or shortness of breath at rest. ECG demonstrating normal sinus rhythm possible lateral T wave inversion. No orthopnea, PND, or edema. Denies history of coronary disease, congestive heart failure, rheumatic fever as a child, diabetes, or peripheral vascular disease. Preliminary review of stat echocardiogram performed at bedside demonstrates normal LV wall motion with preserved left ventricular systolic function. Allergies Allergy/AdvReac Type Severity Reaction Status Date / Time Penicillins Allergy Intermediate Anaphylaxis Verified 05/01/23 22:30 tramadol AdvReac Unknown Unknown Verified 05/01/23 22:29 Home Medications Medication Instructions Recorded Confirmed Type acetaminophen 500 mg tablet 1,500 mg PO DAILY PRN Pain 05/01/23 05/01/23 History Patient History Medical History (Updated 05/03/23 @ 17:10 by Rakesh Strong MD) Pwpyeek-Fzxqd-Dgcxp disease Osteomyelitis Family History Other No significant family history Social History Smoking Status: Never smoker Second Hand Exposure: No; Do You Dip or Chew Tobacco: No; Hx Alcohol Use: No Hx Substance Use: No Preferred Language: Djiboutian Communication Ability: Effective Animal Herder Required: No Beliefs That Will Affect Care: None Current Living Situation: Other Current Living Situation Comment: with 2 friends Feels Safe at Home: Yes Safety Concerns: Feels Safe At This Time Assistive Devices: None Review of Systems Review of Systems: All systems reviewed & are unremarkable except as noted in Subjective Physical Exam Constitutional: well developed, well nourished and + obese; no acute distress Respiratory: no respiratory distress, no labored breathing and no retractions Auscultation: + diminished lung sounds (Right base); no crackles, no rales, no rhonchi and no wheezes Cardiovascular: Rate/Rhythm: regular rate and regular rhythm Heart Sounds: normal S1 and normal S2; no murmur Vessels: radial pulses present; no JVD and no carotid bruit Extremities: no edema Right-sided BKA Gastrointestinal (Abdomen): Inspection/Auscultation: abdomen normal to inspection and normal bowel sounds; abdomen not distended Percussion/Palpation: abdomen soft; abdomen nontender, no guarding and abdomen not rigid Neurologic: CN's II-XI intact bilaterally and moves all extremities; no focal motor deficits Psychiatric: Orientation: alert and oriented x 3 Results & Data Vital Signs (Past 12 Hours) Vital Signs Temp Pulse Resp BP BP Pulse Ox O2 Del Method 05/03/23 15:30 36.6 C 83 19 97/57 L 93 Nasal Cannula 05/03/23 13:30 36.5 C 106 H 21 96/54 L 91 Nasal Cannula 05/03/23 07:01 36.6 C 75 16 99/63 L 92 Room Air O2 Flow Rate 05/03/23 15:30 3 05/03/23 13:30 05/03/23 07:01 Laboratory Results Cardiac Enzymes 05/03/23 Range/Units 14:30 Troponin I High Sens 97.8 H* (0-20) pg/ml CBC 05/03/23 Range/Units 07:10 WBC 10.98 H (4.8-10.8) K/ul RBC 3.79 L (4.70-6.10) M/uL Hgb 11.9 L (14.0-18.0) g/dl Hct 36.4 L (42.0-52.0) % Plt Count 205 (130-400) K/uL Comprehensive Metabolic Panel 05/03/23 Range/Units 07:10 Sodium 136 (136-145) mmol/L Potassium 3.9 (3.5-5.1) mmol/L Chloride 104 (98-107) mmol/L Carbon Dioxide 29 (21-32) mmol/L BUN 10 (6-23) mg/dl Creatinine 0.85 (0.6-1.4) mg/dl Glucose 94 (70-99(Fasting)) mg/dl Calcium 7.8 L (8.6-10.3) mg/dl Intake and Output 05/03/23 05/03/23 05/03/23 06:59 14:59 22:59 Intake Total 150 / 700 325.5 / 375.5 50 / 375.5 Output Total 600 / 600 375 / 375 Balance -450 / 100 325.5 / 0.5 -325 / 0.5 Intake: IV 150 / 700 325.5 / 325.5 Promethazine HCl 12.5 mg In 50.5 / 50.5 Sodium Chloride 0.9% 50 ml @ 202 mls/hr IV Q6H PRN Rx#: [id number] Vancomycin HCl 1,250 mg In 275 / 275 Sodium Chloride 0.9% 250 ml @ 200 mls/hr IV Q12H CHERRY Rx#: [id number] levoFLOXacin/D5W 750 mg In 150 150 / 150 ml @ 100 mls/hr IV Q24H CHERRY Rx# :[id number] Oral 50 / 50 Output: Urine 600 / 600 175 / 175 Emesis 200 / 200
--- NOTE | 2023-05-03 17:10 | Hospitalist Progress Note ---
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 He also reported coughing for the same duration with yellow phlegm. Denies sore throat. He is being managed for the following: Likely acute UTI Likely community-acquired pneumonia Sepsis POA Respiratory rate, pulse rate, WBC elevated and lactate normal at presentation. Procalcitonin elevated at 17.96 Admitting CTAP with no acute findings in the abdomen or pelvis. Admitting UA suggestive of UTI, patient complained of 3 days of cough with yellowish sputum at presentation CXR with no acute process. Follow admitting blood culture and urine culture. Still pending. Patient with cough with yellow sputum. Clinically does not appear improved though WBC trending down and patient afebrile. Patient continues to be diaphoretic, blood pressure has been borderline soft. Patient has severe allergies to penicillin. Continue with levofloxacin and vancomycin is started 05/02. -->> Levofloxacin changed to aztreonam 05/04 for concern of QT prolongation. Continue with vancomycin. ID consult, await recommendation. Nausea, vomiting, diarrhea:CTAP is okay. Stool studies remains uncollected. Advance diet as tolerated. IV fluid if patient not tolerating p.o. intake. Antiemetics. Diaphoresis/troponin elevation: Concern for ACS, EKG without obvious ST or T changes. Will trend troponin. Discussed with cardiology. Patient upgraded to med telemetry. Echo done, no regional wall motion abnormality. EKG with chest pain. Other chronic medical conditions:Continue with/resume home meds as and when able. 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 follow History of DVT: Patient states many years ago. As per record looks like in 2019 postop. Not taking any anticoagulation DVT prophylaxis: Lovenox Disposition medical floor Full code Admission and Anticipated Discharge Date Admission Date: May 02, 2023 Subjective Patient seen and examined at bedside as a follow-up of UTI, likely come to acquired pneumonia, sepsis POA. Patient was lying in bed, on room air, reports having nausea and vomiting today, reports yellow sputum with the cough, has increased oxygen requirement later in the day today, repeat CXR with no progress or acute changes, will obtain CT chest if increasing oxygen requirement. Has been n.p.o. due to nausea and vomiting, will use IV fluid. Due to increased oxygen requirement/normal CXR/diaphoresis ongoing, troponin and EKG were obtained, troponin was elevated, discussed with cardiology, stat echo was done with no regional wall motion abnormality, heparin drip was discontinued, patient upgraded to med telemetry, due to concern for QT prolongation levofloxacin will be switched to aztreonam. Patient does have severe allergy to penicillin precluding use of penicillin and cephalosporins. Promethazine prn added for nausea, dry heaves. Physical Exam Physical Exam: GENERAL: Alert and oriented x3. NAD, on RA. Was nauseous w/ dry heaving/spitting mucus. HEENT: No pallor, no icterus. Pupils equal, round and reactive to light. Oral mucosa moist. NECK: No JVD, no neck masses. HEART: S1 and S2 heard. Regular rate and rhythm. No murmur, no gallop. RESPIRATORY SYSTEM: Normal AP diameter. No accessory muscle use. No wheezing, no crackles. ABDOMEN: Soft, bowel sounds present, nontender, no distention. CENTRAL NERVOUS SYSTEM: No facial droop. Speech is clear. Obeys simple commands. Moves extremities. EXTREMITIES: No edema, no erythema seen. s/p Rt BKA - stump site w/ no s/s infection. Results & Data Results & Data Vital Signs (Past 12 Hours) Vital Signs Temp Pulse Resp BP BP Pulse Ox O2 Del Method 05/03/23 15:30 36.6 C 83 19 97/57 L 93 Nasal Cannula 05/03/23 13:30 36.5 C 106 H 21 96/54 L 91 Nasal Cannula 05/03/23 07:01 36.6 C 75 16 99/63 L 92 Room Air O2 Flow Rate 05/03/23 15:30 3 05/03/23 13:30 05/03/23 07:01
[2023-05-03] MEDS: AZTREONAM 2,000 MG in DEXTROSE 5% 100 ML IV SCH (18:13)
--- NOTE | 2023-05-03 18:33 | Electrocardiogram Report ---
Test Reason : Blood Pressure : / mmHG Vent. Rate : 101 BPM Atrial Rate : 101 BPM P-R Int : 216 ms QRS Dur : 086 ms QT Int : 356 ms P-R-T Axes : 000 -51 151 degrees QTc Int : 461 ms Poor data quality, interpretation may be adversely affected Sinus tachycardia with 1st degree A-V block ST elevation consider inferior injury or acute infarct Left axis deviation Low voltage QRS Lateral infarct , age undetermined Abnormal ECG No previous ECGs available Confirmed by Clayton Herrera ([id number]) on 05/03/2023 6:33:04 PM Referred By: REFERRED SELF Confirmed By:Clayton Herrera
[2023-05-03 20:12] LABS: A calco-baum cmplx NotReported Not Detected (NotDetected); Bact fragilis Not Reported Not Detected (NotDetected); C auris Not Reported Not Detected (NotDetected); Calbicans Not Reported Not Detected (NotDetected); Candida glabrata Not Reported Not Detected (NotDetected); Candida krusei Not Reported Not Detected (NotDetected); Cneoformans/gatti Not Reported Not Detected (NotDetected); Cparapsilosis Not Reported Not Detected (NotDetected); Ctropicalis Not Reported Not Detected (NotDetected); E cloacae compx Not Reported Not Detected (NotDetected); Efaecalis Not Reported Not Detected (NotDetected); Efaecium Not Reported Not Detected (NotDetected); Enterobacterales Not Reported Not Detected (NotDetected); Escherichia coli Not Reported Not Detected (NotDetected); H influenzae Not Reported Not Detected (NotDetected); K aerogenes Not Reported Not Detected (NotDetected); Koxytoca Not Reported Not Detected (NotDetected); Kpneumoniae grp Not Reported Not Detected (NotDetected); Lmonocyt Not Reported Not Detected (NotDetected); N meningitidis Not Reported Not Detected (NotDetected); P aeruginosa Not Reported Not Detected (NotDetected); Proteus spp Not Reported Not Detected (NotDetected); Salmonella spp Not Reported Not Detected (NotDetected); Smarcescens Not Reported Not Detected (NotDetected); Staph lugdunensis Not Reported Not Detected (NotDetected); Staph spp. Not Reported Not Detected (NotDetected); Staphaureus Not Reported Not Detected (NotDetected); Staphepi Not Reported Not Detected (NotDetected); Stenmaltophilia Not Reported Not Detected (NotDetected); Strep agal(GrpB) Not Reported Not Detected (NotDetected); Strep pneum Not Reported Not Detected (NotDetected); Strep pyog (GrpA) Not Reported Not Detected (NotDetected); Strep spp Not Reported Not Detected (NotDetected)
[2023-05-03] MEDS ORDERED: SODIUM CHLORIDE 0.9% 500 ML IV ONE (20:55)
[2023-05-03] MEDS: SODIUM CHLORIDE 0.9% 1000ML 1,000 ML IV SCH (21:53)
--- NOTE | 2023-05-04 01:35 | Ultrasound Report ---
Exam(s): US VENOUS BILATERAL LOWER EXTREMITIES EXAM: US Duplex Bilateral Lower Extremities Veins CLINICAL HISTORY: Reason for exam: h/o DVT, fevers. TECHNIQUE: Real-time duplex ultrasound scan of the bilateral lower extremity veins integrating B-mode two-dimensional vascular structure, Doppler spectral analysis, color flow Doppler imaging and compression. COMPARISON: No relevant prior studies available. FINDINGS: Right deep veins: Unremarkable. No DVT in the right common femoral, femoral, proximal deep femoral or popliteal veins. The veins demonstrate normal color flow, are normally compressible, with normal phasic flow and/or augmentation response. Right superficial veins: Unremarkable. No thrombus in the visualized right great saphenous vein. Left deep veins: Unremarkable. No DVT in the left common femoral, femoral, proximal deep femoral or popliteal veins. The veins demonstrate normal color flow, are normally compressible, with normal phasic flow and/or augmentation response. Left superficial veins: Unremarkable. No thrombus in the visualized left great saphenous vein. Soft tissues: No acute findings. No popliteal cyst. IMPRESSION: Normal bilateral lower extremity duplex venous ultrasound. Electronically signed by: Nilton Davidson MD 05/04/23 01:34 AM
[2023-05-04] MEDS: AZTREONAM 2,000 MG in DEXTROSE 5% 100 ML IV SCH ×3 (02:00→18:35)
[2023-05-04 03:45] LABS: Hematocrit (blood only) 36.2 % (42.0-52.0); Mean Corpuscular Hemoglobin 31.9 pg (25.0-34.0); Mean Corpuscular Hgb Conc 33.1 g/dL (32.0-36.0); Mean Corpuscular Volume 96.3 fL (80.0-100.0); Mean Platelet Volume 10.6 fL (9.4-12.4); Platelet Count 198 K/uL (130-400); RDW Coefficient of Variation 12.7 % (11.5-14.5); RDW Standard Deviation 44.7 fL (36.4-46.3); Red Blood Count 3.76 M/uL (4.70-6.10); White Blood Count 11.67 K/ul (4.8-10.8)
[2023-05-04 04:04] LABS: BUN Creatinine Ratio 11.3 (10-20); Calcium 7.9 mg/dl (8.6-10.3); Creatinine Clr Calc Pharmacy 163.6 ml/min; Est GFR (Non-African American) 102.7 ml/min; Magnesium 2.1 mg/dl (1.7-2.4); Phosphorus 3.5 mg/dl (2.5-4.9); Potassium 3.9 mmol/L (3.5-5.1)
[2023-05-04 04:25] LABS: Troponin I High Sensitivity 20.5 pg/ml (0-20)
[2023-05-04] MEDS ORDERED: VANCOMYCIN HCL 1,500 MG in SODIUM CHLORIDE 0.9% 500 ML IV SCH (08:00)
--- NOTE | 2023-05-04 09:44 | Pharmacy Report ---
Pharmacy PK ABX Note - Date of Service May 04, 2023 - Assessment and Plan Assessment 52 year old M receiving Vancomycin and Aztreonam for empiric (48 hour stop) treatment of sepsis. * Day #3 of antimicrobial therapy. * Urine culture w/ pinpoint growth, reincubating. Blood cultures with gram negative bacilli in both aerobic bottles. BCID2 did not identify this organism. * Afebrile. Leukocytosis improved (17.2k --> 13.7k --> 11.7k). SCr stable, 0.80 today. Procal improving (17.96 --> 13.21). * Attending would like Vancomycin to continue until urine cultures final. Stop date extended. Plan Vancomycin * Current regimen: 1250 mg IV every 12 hours * Random level obtained 05/04/23 resulted as 12.7 mcg/mL. This is subtherapeutic. * Continue 1500 mg IV every 12 hours. Predicted AUC at steady state: 435 mg/L.hr. * No repeat level will be ordered unless vancomycin is to continue beyond another 48 hours. Aztreonam * 2000 mg IV every 8 hours Pharmacy will continue to follow and will adjust dose/frequency as necessary. Thank you. Pharmacy has transitioned to AUC monitoring for vancomycin. AUC/EMIR is the preferred PK/PD target and is associated with decreased risk of nephrotoxicity compared to traditional trough targets.
[2023-05-04] MEDS: ADVANCED PROBIOTIC 1250 MG CAPSULE PO SCH ×2 (09:56→22:44)
[2023-05-04] MEDS: ENOXAPARIN INJ 40 MG/0.4 ML SYR SQ SCH (09:56)
--- NOTE | 2023-05-04 11:18 | Cardiology Progress Note ---
Date of Service May 04, 2023 Assessment & Plan (1) Elevated troponin I level: (2) Diaphoresis: (3) SIRS (systemic inflammatory response syndrome): (4) Elevated procalcitonin: Plan 52-year-old patient admitted with sepsis. Blood cultures growing gram-negative bacilli. Source not well-defined. Possible pneumonia. Urine culture demonstrating skin roger. Cardiology consultation requested due to diaphoresis concerns regarding elevated troponin. Troponin elevation due to underlying sepsis. No evidence of ACS/plaque rupture event. Bedside echocardiogram demonstrates preserved LV systolic function with normal wall motion. Narrow antibiotic spectrum pending review of sensitivity. Consider infectious disease consultation. Repeat blood cultures drawn. Gram-negative bacilli not frequently associated with endocarditis. If repeat cultures demonstrate persistent bacteremia and/or no obvious source of infection is discovered a transesophageal echocardiogram can be considered. Admission and Anticipated Discharge Date Admission Date: May 02, 2023 Subjective Patient seen examined the bedside. Feeling better today. Intermittent emily phoresis improved. Afebrile overnight. Denies chest pain or shortness of breath. Telemetry reveals sinus rhythm with PVCs in the 60s. Preliminary blood culture result reporting gram-negative bacilli. Urine culture with probable skin roger. Review of Systems Review of Systems: All systems reviewed & are unremarkable except as noted in Subjective Physical Exam Constitutional: well developed, well nourished and + obese; no acute distress Respiratory: no respiratory distress, no labored breathing and no retractions Auscultation: + diminished lung sounds (Right base); no crackles, no rales, no rhonchi and no wheezes Cardiovascular: Rate/Rhythm: regular rate and regular rhythm Heart Sounds: normal S1 and normal S2; no murmur Vessels: radial pulses present; no JVD and no carotid bruit Extremities: no edema Gastrointestinal (Abdomen): Inspection/Auscultation: abdomen normal to inspection and normal bowel sounds; abdomen not distended Percussion/Palpation: abdomen soft; abdomen nontender, no guarding and abdomen not rigid Neurologic: CN's II-XI intact bilaterally and moves all extremities; no focal motor deficits Psychiatric: Orientation: alert and oriented x 3 Results & Data Vital Signs (Past 12 Hours) Vital Signs Temp Pulse Pulse Resp BP BP Pulse Ox 05/04/23 09:16 36.4 C L 60 18 67/35 L 96/58 L 96 05/04/23 03:11 36.3 C L 86 18 90/54 L 99 05/04/23 01:09 65 05/04/23 01:02 05/04/23 01:00 67 05/04/23 00:48 36.4 C L 69 18 99/58 L 97 O2 Del Method O2 Flow Rate 05/04/23 09:16 Room Air 05/04/23 03:11 Nasal Cannula 3 05/04/23 01:09 05/04/23 01:02 Nasal Cannula 3 05/04/23 01:00 05/04/23 00:48 Nasal Cannula 3 Diagnostic Findings Cardiac Enzymes 05/03/23 05/03/23 05/03/23 Range/Units 14:30 16:43 22:46 Troponin I High Sens 97.8 H* 63.9 H* D 29.0 H D (0-20) pg/ml 05/04/23 Range/Units 03:25 Troponin I High Sens 20.5 H (0-20) pg/ml CBC 05/04/23 Range/Units 03:25 WBC 11.67 H (4.8-10.8) K/ul RBC 3.76 L (4.70-6.10) M/uL Hgb 12.0 L (14.0-18.0) g/dl Hct 36.2 L (42.0-52.0) % Plt Count 198 (130-400) K/uL Comprehensive Metabolic Panel 05/04/23 Range/Units 03:25 Sodium 139 (136-145) mmol/L Potassium 3.9 (3.5-5.1) mmol/L Chloride 106 (98-107) mmol/L Carbon Dioxide 29 (21-32) mmol/L BUN 9 (6-23) mg/dl Creatinine 0.80 (0.6-1.4) mg/dl Glucose 102 H (70-99(Fasting)) mg/dl Calcium 7.9 L (8.6-10.3) mg/dl Intake and Output 05/03/23 05/04/23 05/04/23 22:59 06:59 14:59 Intake Total 1935 / 2670.5 410 / 2670.5 1640 / 1640 Output Total 375 / 1125 750 / 1125 Balance 1560 / 1545.5 -340 / 1545.5 1640 / 1640 Intake: IV 1885 / 2320.5 110 / 2320.5 1640 / 1640 Aztreonam 2,000 mg In Dextrose 110 / 220 110 / 220 110 / 110 5% 100 ml @ 100 mls/hr IV Q8H [facility] Rx#:[id number] Sodium Chloride 0.9% 1000ML 1, 1000 / 1000 1000 / 1000 000 ml @ 80 mls/hr IV .[id number] [facility] Rx#:[id number] Sodium Chloride 0.9% 500 ml @ 500 / 500 500 mls/hr IV .Q1H ONE Rx#: [id number] Vancomycin HCl 1,250 mg In 275 / 550 Sodium Chloride 0.9% 250 ml @ 200 mls/hr IV Q12H [facility] Rx#: [id number] Vancomycin HCl 1,500 mg In 530 / 530 Sodium Chloride 0.9% 500 ml @ 200 mls/hr IV Q12H [facility] Rx#: [id number] Oral 50 / 350 300 / 350 Output: Urine 175 / 925 750 / 925 Emesis 200 / 200
[2023-05-04] MEDS: SODIUM CHLORIDE 0.9% 1000ML 1,000 ML IV SCH (12:38)
--- NOTE | 2023-05-04 15:00 | Electrocardiogram Report ---
Test Reason : Blood Pressure : / mmHG Vent. Rate : 075 BPM Atrial Rate : 075 BPM P-R Int : 190 ms QRS Dur : 098 ms QT Int : 438 ms P-R-T Axes : 063 -36 037 degrees QTc Int : 489 ms Poor data quality, interpretation may be adversely affected Sinus rhythm with occasional Premature ventricular complexes Left anterior fascicular block Abnormal ECG When compared with ECG of 03-MAY-2023 14:00, Premature ventricular complexes are now Present Minor ST elevation in no longer present Confirmed by Thiago Johnson ([id number]) on 05/04/2023 3:00:26 PM Referred By: REFERRED SELF Confirmed By:Thiago Johnson
[2023-05-04] MEDS ORDERED: DICLOFENAC SOD 1% GEL 100 GM TUBE EXT PRN (17:07)
--- NOTE | 2023-05-04 17:12 | Hospitalist Progress Note ---
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 He also reported coughing for the same duration with yellow phlegm. Denies sore throat. He is being managed for the following: Likely acute UTI Likely community-acquired pneumonia versus bronchitis Gram Neg bacteremia Sepsis POA: 2/2 GNB bacteremia. Respiratory rate, pulse rate, WBC elevated and lactate normal at presentation. Procalcitonin elevated at 17.96 Admitting CTAP with no acute findings in the abdomen or pelvis. Admitting UA suggestive of UTI, patient complained of 3 days of cough with yellowish sputum at presentation CXR with no acute process. Follow admitting blood culture and urine culture. UCx contaminant. GNB on bl cx - follow. Patient with cough with yellow sputum--getting critical care specialist per pt. WBC trending down, improving clinically, patient has been afebrile, vitals stable. Patient has severe allergies to penicillin. Continue with levofloxacin and vancomycin is started 05/02. -->> Levofloxacin changed to aztreonam 05/04 for concern of QT prolongation. Discontinue vancomycin 05/04. Doxy for bronchitis ID consult, await recommendation. Nausea, vomiting, diarrhea:CTAP is okay. Stool studies remains uncollected. Advance diet as tolerated. IV fluid if patient not tolerating p.o. intake. Antiemetics. Diaphoresis/troponin elevation: Concern for ACS, EKG without obvious ST or T changes. Will trend troponin. Discussed with cardiology. Patient upgraded to med telemetry. Echo done, no regional wall motion abnormality. EKG with chest pain. Other chronic medical conditions:Continue with/resume home meds as and when able. 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 History of DVT: Patient states many years ago. As per record looks like in 2019 postop. Not taking any anticoagulation DVT prophylaxis: Lovenox Disposition medical floor Full code Admission and Anticipated Discharge Date Admission Date: May 02, 2023 Subjective Patient seen and examined at bedside as a follow-up of UTI, likely come to acquired pneumonia, sepsis POA. Patient lying in bed, on room air, reports improving nausea and vomiting, reports feeling significantly better today, reports improvement in his diaphoresis. Patient made aware of gram-negative bacilli bacteremia today. P atient denies any headache or dizziness or chest pain. Physical Exam Physical Exam: GENERAL: Alert and oriented x3. NAD, on RA. HEENT: No pallor, no icterus. Pupils equal, round and reactive to light. Oral mucosa moist. NECK: No JVD, no neck masses. HEART: S1 and S2 heard. Regular rate and rhythm. No murmur, no gallop. RESPIRATORY SYSTEM: Normal AP diameter. No accessory muscle use. No wheezing, no crackles. ABDOMEN: Soft, bowel sounds present, nontender, no distention. CENTRAL NERVOUS SYSTEM: No facial droop. Speech is clear. Obeys simple commands. Moves extremities. EXTREMITIES: No edema, no erythema seen. s/p Rt BKA - stump site w/ no s/s infection. Results & Data Results & Data Vital Signs (Past 12 Hours) Vital Signs Temp Pulse Pulse Resp BP BP Pulse Ox 05/04/23 17:00 36.7 C 69 18 95/59 L 94 05/04/23 15:00 64 05/04/23 07:00 59 L 05/04/23 13:00 36.4 C L 64 18 95/58 L 93 05/04/23 09:16 36.4 C L 60 18 67/35 L 96/58 L 96 O2 Del Method 05/04/23 17:00 Room Air 05/04/23 15:00 05/04/23 07:00 05/04/23 13:00 Room Air 05/04/23 09:16 Room Air
--- NOTE | 2023-05-04 18:41 | XRay Report ---
XR ankle LT min 3V routine HISTORY: 52 years-old Male increased ankle pain acute left ankle pain COMPARISON: Left foot radiographs 06/01/2014 TECHNIQUE: 3 views of left ankle FINDINGS: Moderate soft tissue swelling. Moderate ankle with severe mid foot osteoarthritis. Chronic sclerotic and disorganized appearance of the midfoot. Spurring of the calcaneus. Prior resection of the first d igit. IMPRESSION: 1. Soft tissue swelling without acute osseous abnormality. 2. Chronic changes of the imaged foot. ACT 112: Negative or not required by law. The above report was generated using voice recognition software. It may contain grammatical, syntax o r spelling errors. Electronically signed by: Americo Schumacher M.D. 05/04/2023 6:40 PM
[2023-05-04] MEDS: DOXYCYCLINE HYCLATE 100 MG CAP PO SCH (22:44)
[2023-05-05] MEDS: SODIUM CHLORIDE 0.9% 1000ML 1,000 ML IV SCH (01:26)
[2023-05-05] MEDS: AZTREONAM 2,000 MG in DEXTROSE 5% 100 ML IV SCH ×2 (01:31→11:24)
[2023-05-05 07:38] LABS: Hematocrit (blood only) 36.5 % (42.0-52.0); Hemoglobin 12.1 g/dl (14.0-18.0); Mean Corpuscular Hemoglobin 31.5 pg (25.0-34.0); Mean Corpuscular Hgb Conc 33.2 g/dL (32.0-36.0); Mean Corpuscular Volume 95.1 fL (80.0-100.0); Mean Platelet Volume 11.1 fL (9.4-12.4); Platelet Count 214 K/uL (130-400); RDW Coefficient of Variation 12.8 % (11.5-14.5); RDW Standard Deviation 44.5 fL (36.4-46.3); Red Blood Count 3.84 M/uL (4.70-6.10); White Blood Count 9.56 K/ul (4.8-10.8)
[2023-05-05 08:06] LABS: BUN Creatinine Ratio 9.3 (10-20); Calcium 7.8 mg/dl (8.6-10.3); Creatinine Clr Calc Pharmacy 174.5 ml/min; Est GFR (African American) 122.2 ml/min; Est GFR (Non-African American) 105.5 ml/min; Magnesium 1.9 mg/dl (1.7-2.4); Phosphorus 3.4 mg/dl (2.5-4.9); Potassium 3.6 mmol/L (3.5-5.1)
[2023-05-05] MEDS: ENOXAPARIN INJ 40 MG/0.4 ML SYR SQ SCH (08:15)
[2023-05-05] MEDS: DOXYCYCLINE HYCLATE 100 MG CAP PO SCH (08:15)
[2023-05-05] MEDS: ADVANCED PROBIOTIC 1250 MG CAPSULE PO SCH ×2 (08:15→21:27)
[2023-05-05] MEDS: ACETAMINOPHEN 325 MG TAB PO PRN (08:16)
--- NOTE | 2023-05-05 10:58 | Infectious Disease Consult ---
Date of Consultation May 05, 2023 Assessment & Plan (1) Bacteremia due to Gram-negative bacteria: Plan 52 y/o M who p/w nausea and vomiting and was found to have hemophilus parainfluenza bacteremia .His CT scan of abdomen and pelvis did not reveal an infectious etiology and he on aztreonam and doxycyline .Recommend discontinuing aztreonam and doxycycline and starting ceftriaxone and treating for 7-10 days Thank you for allowing us to participate in the care of this patient ID will sign off Consultation Information Consultation was provided via telemedicine using two-way real-time interactive telecommunication between the patient and the telemedicine provider. For the duration of the visit, the provider was performing the assessment from a different facility than the patient. This includesuse of bluetooth stethoscope forauscultationperformed by the telepresenter that the telemedicine provider can hear if described in the physical exam. Ball Machine Operator contact information: Please call [facility] . (Phone Number For Physician Use Only) After establishing a telemedicine visit, patient was: Patient was verified with two unique identifiers, Patient/authorized rep acknowledged consent and understanding and Gave permission to continue telehealth session Time Spent with Patient: Initial => 55 min History of Present Illness Reason for Consultation: sepsis,clinically not getting better on levo &vanc Attending Physician: Rakesh Strong MD History of Present Illness 52y/o M PMHx chronic pain left foot, Charcot foot ,s/p right BKA, history of DVT p/w nausea vomiting and diarrhea for 3 days.He reports intermittent fevers and dry cough.CT abdomen and pelvis did not reveal an infectious etiology .His blood cultures revealed hemophilus parainfluenza and was started on vancomycin and levaquin and then switched to aztreonam and doxycycline Allergies Allergy/AdvReac Type Severity Reaction Status Date / Time Penicillins Allergy Intermediate Anaphylaxis Verified 05/05/23 09:37 tramadol AdvReac Unknown Unknown Verified 05/01/23 22:29 Home Medications Medication Instructions Recorded Confirmed Type acetaminophen 500 mg tablet 1,500 mg PO DAILY PRN Pain 05/01/23 05/01/23 History Patient History Medical History (Updated 05/05/23 @ 16:28 by Kirsten Herrera MD) Bsfmstx-Mstbt-Fbqlk disease Osteomyelitis Family History Other No significant family history Social History Smoking Status: Never smoker Second Hand Exposure: No; Do You Dip or Chew Tobacco: No; Hx Alcohol Use: No Hx Substance Use: No Preferred Language: Korean Communication Ability: Effective Dental Aide Required: No Beliefs That Will Affect Care: None Current Living Situation: Other Current Living Situation Comment: with 2 friends Feels Safe at Home: Yes Safety Concerns: Feels Safe At This Time Assistive Devices: Prosthesis and Special Shoe Review of System Constitutional: + fatigue and + weakness Physical Exam Constitutional: average body habitus, cooperative and comfortable Eyes: PERRL, conjunctivae normal, anicteric sclerae Respiratory: normal respiratory effort Results & Data Vital Signs (Past 12 Hours) Vital Signs Temp Pulse Pulse Pulse Resp BP Pulse Ox 05/05/23 08:40 36.7 C 64 18 101/63 92 05/05/23 00:00 66 05/05/23 03:00 36.8 C 71 20 103/53 L 95 05/05/23 02:13 68 Pulse Ox O2 Del Method O2 Del Method 05/05/23 08:40 Room Air 05/05/23 00:00 05/05/23 03:00 Room Air 05/05/23 02:13 92 Room Air Laboratory Results Blood cultures have grown hemophilus parainfluenza Diagnostic Findings FINDINGS: Lung bases: Right lower lobe atelectasis with tiny granuloma contained within. ABDOMEN: Liver: Unremarkable. No mass. Gallbladder and bile ducts: Unremarkable. No calcified stones. No ductal dilation. Pancreas: Fatty atrophy of the pancreas. No ductal dilation. Spleen: Granulomatous disease noted within the spleen. Adrenals: Unremarkable. No mass. Kidneys and ureters: Unremarkable. No solid mass. No hydronephrosis. Stomach and bowel: Unremarkable. No obstruction. No mucosal thickening. PELVIS: Appendix: No findings to suggest acute appendicitis. Bladder: Unremarkable. No mass. Reproductive: Unremarkable as visualized. ABDOMEN and PELVIS: Intraperitoneal space: Unremarkable. No free air. No significant fluid collection. Bones/joints: No acute fracture. No dislocation. Soft tissues: Unremarkable. Vasculature: Unremarkable. No abdominal aortic aneurysm. Lymph nodes: Unremarkable. No enlarged lymph nodes. Other findings: Elevation of the right hemidiaphragm. IMPRESSION: No acute findings in the abdomen or pelvis. FINDINGS: Cardiac silhouette is enlarged. Unchanged right hemidiaphragmatic elevation with right basilar opacities. Pulmonary vascular congestion. A pneumothorax or large pleural effusion. Degenerative changes of the shoulders and spine. IMPRESSION: 1. No acute process. 2. Unchanged right hemidiaphragmatic elevation with right basilar atelectasis.
--- NOTE | 2023-05-05 15:20 | Hospitalist Progress Note ---
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 He also reported coughing for the same duration with yellow phlegm. Denies sore throat. He is being managed for the following: Likely acute UTI Likely community-acquired pneumonia versus bronchitis Gram Neg bacteremia Sepsis POA: 2/2 GNB bacteremia. Respiratory rate, pulse rate, WBC elevated and lactate normal at presentation. Procalcitonin elevated at 17.96 Admitting CTAP with no acute findings in the abdomen or pelvis. Admitting UA suggestive of UTI, patient complained of 3 days of cough with yellowish sputum at presentation CXR with no acute process. Follow admitting blood culture and urine culture. UCx contaminant. GNB on bl cx -haemophilus parainfluenza. Follow repeat blood culture 05/04. 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 WBC trending down, improving clinically, patient has been afebrile, vitals stable. Patient has severe allergies to penicillin. Continue with levofloxacin and vancomycin started 05/02. -->> Levofloxacin changed to aztreonam 05/04 for concern of QT prolongation. Discontinue vancomycin 05/04. Doxy 05/04 for bronchitis. ID evaluated, recommend discontinuing aztreonam and doxycycline. Recommend starting Rocephin for 7 to 10 days. ID consult, appreciate recommendation. d/w pharmacy, pt has been able to use cephalexin and cefepime without issues in the past. Nausea, vomiting, diarrhea:CTAP is okay. Stool studies remains uncollected. Advance diet as tolerated. IV fluid if patient not tolerating p.o. intake. Antiemetics. Diaphoresis/troponin elevation: Concern for ACS, EKG without obvious ST or T changes. Will trend troponin. Discussed with cardiology. Patient upgraded to med telemetry. Echo done, no regional wall motion abnormality. EKG with chest pain. Other chronic medical conditions:Continue with/resume home meds as and when able. 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 History of DVT: Patient states many years ago. As per record looks like in 2019 postop. Not taking any anticoagulation DVT prophylaxis: Lovenox Disposition medical floor Full code CM notified of need for P2P for hospital stay denial later in the day, called the [phone]. Left voicemail for call back. Admission and Anticipated Discharge Date Admission Date: May 02, 2023 Subjective Patient seen and examined at bedside as a follow-up of UTI, likely come to acquired pneumonia, sepsis POA. Patient lying in bed, on room air, reports improving nausea and vomiting, reports feeling significantly better today, no more diaphoresis. Blood pressure has been better.. Patient denies any headache or dizziness or chest pain. Physical Exam Physical Exam: GENERAL: Alert and oriented x3. NAD, on RA. HEENT: No pallor, no icterus. Pupils equal, round and reactive to light. Oral mucosa moist. NECK: No JVD, no neck masses. HEART: S1 and S2 heard. Regular rate and rhythm. No murmur, no gallop. RESPIRATORY SYSTEM: Normal AP diameter. No accessory muscle use. No wheezing, no crackles. ABDOMEN: Soft, bowel sounds present, nontender, no distention. CENTRAL NERVOUS SYSTEM: No facial droop. Speech is clear. Obeys simple commands. Moves extremities. EXTREMITIES: No edema, no erythema seen. s/p Rt BKA - stump site w/ no s/s infection. Results & Data Results & Data Vital Signs (Past 12 Hours) Vital Signs Temp Pulse Pulse Resp BP Pulse Ox O2 Del Method 05/05/23 15:01 66 05/05/23 11:42 63 05/05/23 08:40 36.7 C 64 18 101/63 92 Room Air
[2023-05-05] MEDS: cefTRIAXone SODIUM 2,000 MG in DEXTROSE 5% 50 ML IV SCH (16:11)
--- NOTE | 2023-05-05 16:17 | Cardiology Progress Note ---
Date of Service May 05, 2023 Assessment & Plan (1) Haemophilus infection: (2) Bacteremia: (3) Moderate aortic regurgitation: (4) Elevated troponin I level: Plan 52-year-old patient admitted with sepsis. Blood cultures growing haemophilus parainfluenzae which is part of the HACEK bacteria associated with endocarditis. No obvious vegetation per transthoracic echocardiogram, however, moderate aortic valve regurgitation noted. Repeat blood cultures pending. Recommend transesophageal echocardiogram for further evaluation. Procedure to be performed 05/08/2023. N.p.o. except medications on 05/07/2023. Admission and Anticipated Discharge Date Admission Date: May 02, 2023 Subjective Patient seen and examined at the bedside. Periods of diaphoresis are less frequent. No fevers overnight. Blood culture reporting haemophilus parainfluenza. Limited repeat transthoracic echocardiogram demonstrating moderate aortic regurgitation. There is no obvious vegetation. Review of Systems Review of Systems: All systems reviewed & are unremarkable except as noted in Subjective Physical Exam Constitutional: well developed, well nourished and + obese; no acute distress Respiratory: no respiratory distress, no labored breathing and no retractions Auscultation: + diminished lung sounds (Right base); no crackles, no rales, no rhonchi and no wheezes Cardiovascular: Rate/Rhythm: regular rate and regular rhythm Heart Sounds: normal S1 and normal S2; no murmur Vessels: radial pulses present; no JVD and no carotid bruit Extremities: no edema Gastrointestinal (Abdomen): Inspection/Auscultation: abdomen normal to inspection and normal bowel sounds; abdomen not distended Percussion/Palpation: abdomen soft; abdomen nontender, no guarding and abdomen not rigid Neurologic: CN's II-XI intact bilaterally and moves all extremities; no focal motor deficits Psychiatric: Orientation: alert and oriented x 3 Results & Data Vital Signs (Past 12 Hours) Vital Signs Temp Pulse Pulse Resp BP Pulse Ox O2 Del Method 05/05/23 15:01 66 05/05/23 11:42 63 05/05/23 08:40 36.7 C 64 18 101/63 92 Room Air Laboratory Results CBC 05/05/23 Range/Units 06:48 WBC 9.56 (4.8-10.8) K/ul RBC 3.84 L (4.70-6.10) M/uL Hgb 12.1 L (14.0-18.0) g/dl Hct 36.5 L (42.0-52.0) % Plt Count 214 (130-400) K/uL Comprehensive Metabolic Panel 05/05/23 Range/Units 06:48 Sodium 139 (136-145) mmol/L Potassium 3.6 (3.5-5.1) mmol/L Chloride 108 H (98-107) mmol/L Carbon Dioxide 27 (21-32) mmol/L BUN 7 (6-23) mg/dl Creatinine 0.75 (0.6-1.4) mg/dl Glucose 92 (70-99(Fasting)) mg/dl Calcium 7.8 L (8.6-10.3) mg/dl Intake and Output 05/05/23 05/05/23 05/05/23 06:59 14:59 22:59 Intake Total 1510 / 3410 1210 / 1210 Output Total 600 / 1300 400 / 400 Balance 910 / 2110 810 / 810 Intake: IV 1110 / 2860 1110 / 1110 Aztreonam 2,000 mg In Dextrose 110 / 330 110 / 110 5% 100 ml @ 100 mls/hr IV Q8H CHERRY Rx#:[id number] Sodium Chloride 0.9% 1000ML 1, 1000 / 2000 1000 / 1000 000 ml @ 80 mls/hr IV .[id number] CHERRY Rx#:[id number] Oral 400 / 550 100 / 100 Output: Urine 600 / 1300 400 / 400
[2023-05-06 06:28] LABS: Hematocrit (blood only) 35.8 % (42.0-52.0); Hemoglobin 11.9 g/dl (14.0-18.0); Mean Corpuscular Hemoglobin 31.7 pg (25.0-34.0); Mean Corpuscular Hgb Conc 33.2 g/dL (32.0-36.0); Mean Corpuscular Volume 95.5 fL (80.0-100.0); Mean Platelet Volume 10.9 fL (9.4-12.4); Platelet Count 222 K/uL (130-400); RDW Coefficient of Variation 12.8 % (11.5-14.5); RDW Standard Deviation 44.9 fL (36.4-46.3); Red Blood Count 3.75 M/uL (4.70-6.10); White Blood Count 8.71 K/ul (4.8-10.8)
[2023-05-06 06:55] LABS: BUN Creatinine Ratio 6.3 (10-20); Calcium 7.8 mg/dl (8.6-10.3); Creatinine Clr Calc Pharmacy 207.4 ml/min; Est GFR (African American) 131.3 ml/min; Est GFR (Non-African American) 113.3 ml/min; Magnesium 1.8 mg/dl (1.7-2.4); Phosphorus 3.9 mg/dl (2.5-4.9); Potassium 3.6 mmol/L (3.5-5.1)
[2023-05-06] MEDS: ADVANCED PROBIOTIC 1250 MG CAPSULE PO SCH ×2 (08:25→21:26)
[2023-05-06] MEDS: ENOXAPARIN INJ 40 MG/0.4 ML SYR SQ SCH (08:26)
--- NOTE | 2023-05-06 13:36 | Cardiology Progress Note ---
Date of Service May 06, 2023 Assessment & Plan (1) Haemophilus infection: (2) Bacteremia: (3) Moderate aortic regurgitation: (4) Elevated troponin I level: Plan 52-year-old patient admitted with sepsis. Blood cultures growing haemophilus parainfluenzae which is part of the HACEK bacteria associated with endocarditis. No obvious vegetation per transthoracic echocardiogram, however, moderate aortic valve regurgitation noted. Repeat blood cultures pending. Recommend transesophageal echocardiogram for further evaluation. Procedure to be performed 05/08/2023. N.p.o. except medications on 05/07/2023. As above. Patient with bacteremia poorly evaluated aortic valve. We will tentatively schedule transesophageal echocardiogram on Monday Admission and Anticipated Discharge Date Admission Date: May 02, 2023 Subjective Patient was seen and examined, chart, medications, telemetry reviewed No cardiac complaints Review of Systems Review of Systems: All systems reviewed & are unremarkable except as noted in Subjective Physical Exam Constitutional: well developed, well nourished and + obese; no acute distress ENMT: Mouth: + poor dentition Neck: trachea midline, no thyromegaly Respiratory: no respiratory distress, no labored breathing and no retractions Auscultation: + diminished lung sounds (Right base); no crackles, no rales, no rhonchi and no wheezes Cardiovascular: Rate/Rhythm: regular rate and regular rhythm Heart Sounds: normal S1 and normal S2; no murmur Vessels: radial pulses present; no JVD and no carotid bruit Extremities: no edema Gastrointestinal (Abdomen): Inspection/Auscultation: abdomen normal to inspection and normal bowel sounds; abdomen not distended Percussion/Palpation: abdomen soft; abdomen nontender, no guarding and abdomen not rigid Neurologic: CN's II-XI intact bilaterally and moves all extremities; no focal motor deficits Psychiatric: Orientation: alert and oriented x 3 Results & Data Vital Signs (Past 12 Hours) Vital Signs Temp Pulse Resp BP Pulse Ox O2 Del Method 05/06/23 11:16 36.5 C 66 15 112/68 92 Room Air 05/06/23 07:37 36.6 C 62 16 104/64 92 Room Air 05/06/23 04:00 36.9 C 65 18 129/63 92 Room Air Laboratory Results Laboratory Results - last 24 hr 05/06/23 05/06/23 05:35 05:35 WBC 8.71 RBC 3.75 L Hgb 11.9 L Hct 35.8 L MCV 95.5 MCH 31.7 MCHC 33.2 RDW Std Deviation 44.9 RDW Coeff of Caitlin 12.8 Plt Count 222 MPV 10.9 Sodium 140 Potassium 3.6 Chloride 109 H Carbon Dioxide 27 Anion Gap 4 BUN 4 L Creatinine 0.63 Est Cr Clr Drug Dosing 207.4 Est GFR ( Amer) 131.3 Est GFR (Non-Af Amer) 113.3 BUN/Creatinine Ratio 6.3 L Glucose 88 Calcium 7.8 L Phosphorus 3.9 Magnesium 1.8
--- NOTE | 2023-05-06 16:04 | Hospitalist Progress Note ---
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 He also reported coughing for the same duration with yellow phlegm. Denies sore throat. He is being managed for the following: Likely acute UTI Likely community-acquired pneumonia versus bronchitis Gram Neg bacteremia Sepsis POA: 2/2 GNB bacteremia. Respiratory rate, pulse rate, WBC elevated and lactate normal at presentation. Procalcitonin elevated at 17.96 Admitting CTAP with no acute findings in the abdomen or pelvis. Admitting UA suggestive of UTI, patient complained of 3 days of cough with yellowish sputum at presentation CXR with no acute process. Follow admitting blood culture and urine culture. UCx contaminant. GNB on bl cx -haemophilus parainfluenza. Follow repeat blood culture 05/04. 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 WBC trending down, improving clinically, patient has been afebrile, vitals stable. Continue with levofloxacin and vancomycin started 05/02. -->> Levofloxacin changed to aztreonam 05/04 ---->> ID evaluated, started Rocephin 05/05 for 7 to 10 days. ID consult, appreciate recommendation. Plan for [facility] on Monday d/t H. Parainfl bacteremia and poorly evaluated aortic valve on TTE. Nausea, vomiting, diarrhea:CTAP is okay. improved. Diaphoresis/troponin elevation: Concern for ACS, EKG without obvious ST or T changes. Will trend troponin. Discussed with cardiology. Patient upgraded to med telemetry. Echo done, no regional wall motion abnormality. EKG with chest pain. Other chronic medical conditions:Continue with/resume home meds as and when able. 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 Anemia: Hb around baseline. History of DVT: Patient states many years ago. As per record looks like in 2019 postop. Not taking any anticoagulation DVT prophylaxis: Lovenox Disposition medical floor Full code CM notified of need for P2P for hospital stay denial later in the day 05/05, called the [phone]. Left voicemail for call back. ---> tentative call back on Monday around 9:30 am. Admission and Anticipated Discharge Date Admission Date: May 02, 2023 Subjective Patient seen and examined at bedside as a follow-up of UTI, likely come to acquired pneumonia, sepsis POA. Patient lying in bed, on room air, reports no nausea and vomiting, reports feeling significantly better, no more diaphoresis. Blood pressure has been better. Patient denies any headache or dizziness or chest pain. Physical Exam Physical Exam: GENERAL: Alert and oriented x3. NAD, on RA. HEENT: No pallor, no icterus. Pupils equal, round and reactive to light. Oral mucosa moist. NECK: No JVD, no neck masses. HEART: S1 and S2 heard. Regular rate and rhythm. No murmur, no gallop. RESPIRATORY SYSTEM: Normal AP diameter. No accessory muscle use. No wheezing, no crackles. ABDOMEN: Soft, bowel sounds present, nontender, no distention. CENTRAL NERVOUS SYSTEM: No facial droop. Speech is clear. Obeys simple commands. Moves extremities. EXTREMITIES: No edema, no erythema seen. s/p Rt BKA - stump site w/ no s/s infection. Results & Data Results & Data Vital Signs (Past 12 Hours) Vital Signs Temp Pulse Resp BP Pulse Ox O2 Del Method 05/06/23 15:18 36.5 C 64 15 110/69 93 Room Air 05/06/23 11:16 36.5 C 66 15 112/68 92 Room Air 05/06/23 07:37 36.6 C 62 16 104/64 92 Room Air
[2023-05-06] MEDS: cefTRIAXone SODIUM 2,000 MG in DEXTROSE 5% 50 ML IV SCH (17:33)
[2023-05-07 06:16] LABS: BUN Creatinine Ratio 7.9 (10-20); Calcium 8.1 mg/dl (8.6-10.3); Creatinine Clr Calc Pharmacy 207.4 ml/min; Est GFR (African American) 131.3 ml/min; Est GFR (Non-African American) 113.3 ml/min; Magnesium 1.7 mg/dl (1.7-2.4); Phosphorus 4.2 mg/dl (2.5-4.9); Potassium 3.8 mmol/L (3.5-5.1)
[2023-05-07] MEDS: ENOXAPARIN INJ 40 MG/0.4 ML SYR SQ SCH (08:22)
[2023-05-07] MEDS: ADVANCED PROBIOTIC 1250 MG CAPSULE PO SCH ×2 (08:22→21:21)
--- NOTE | 2023-05-07 12:47 | Cardiology Progress Note ---
Date of Service May 07, 2023 Assessment & Plan (1) Haemophilus infection: (2) Bacteremia: (3) Moderate aortic regurgitation: (4) Elevated troponin I level: Plan 52-year-old patient admitted with sepsis. Blood cultures growing haemophilus parainfluenzae which is part of the HACEK bacteria associated with endocarditis. No obvious vegetation per transthoracic echocardiogram, however, moderate aortic valve regurgitation noted. Repeat blood cultures pending. Recommend transesophageal echocardiogram for further evaluation. Procedure to be performed 05/08/2023. N.p.o. except medications on 05/07/2023. 05/07/2023 Anesthesia consultation placed with planned transesophageal echocardiogram in a.m. N.p.o. after midnight procedure and risks explained to the Admission and Anticipated Discharge Date Admission Date: May 02, 2023 Subjective Patient seen and examined. Procedure transesophageal echocardiogram discussed with patient Results & Data Vital Signs (Past 12 Hours) Vital Signs Temp Pulse Pulse Resp BP BP Pulse Ox 05/07/23 11:06 36.8 C 72 16 106/64 91 05/07/23 08:00 64 05/07/23 07:46 36.6 C 66 18 113/66 94 05/07/23 04:00 36.7 C 67 18 110/65 94 O2 Del Method 05/07/23 11:06 Room Air 05/07/23 08:00 05/07/23 07:46 Room Air 05/07/23 04:00 Room Air Laboratory Results Laboratory Results - last 24 hr 05/01/23 05/07/23 22:42 05:32 Sodium 140 Potassium 3.8 Chloride 107 Carbon Dioxide 29 Anion Gap 4 BUN 5 L Creatinine 0.63 Est Cr Clr Drug Dosing 207.4 Est GFR ( Amer) 131.3 Est GFR (Non-Af Amer) 113.3 BUN/Creatinine Ratio 7.9 L Glucose 96 Calcium 8.1 L Phosphorus 4.2 Magnesium 1.7 Misc Micro Test Pending
--- NOTE | 2023-05-07 15:27 | Hospitalist Progress Note ---
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 He also reported coughing for the same duration with yellow phlegm. Denies sore throat. He is being managed for the following: Likely acute UTI Likely community-acquired pneumonia versus bronchitis Gram Neg bacteremia Sepsis POA: 2/2 GNB bacteremia. Respiratory rate, pulse rate, WBC elevated and lactate normal at presentation. Procalcitonin elevated at 17.96 Admitting CTAP with no acute findings in the abdomen or pelvis. Admitting UA suggestive of UTI, patient complained of 3 days of cough with yellowish sputum at presentation CXR with no acute process. Follow admitting blood culture and urine culture. UCx contaminant. GNB on bl cx -haemophilus parainfluenza. Follow repeat blood culture 05/04. 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 WBC trending down, improving clinically, patient has been afebrile, vitals stable. Continue with levofloxacin and vancomycin started 05/02. -->> Levofloxacin changed to aztreonam 05/04 ---->> ID evaluated, started Rocephin 05/05 for 7 to 10 days. ID consult, appreciate recommendation. Plan for [facility] on Monday d/t H. Parainfl bacteremia and poorly evaluated aortic valve on TTE. Nausea, vomiting, diarrhea:CTAP is okay. improved. Diaphoresis/troponin elevation: Concern for ACS, EKG without obvious ST or T changes. Will trend troponin. Discussed with cardiology. Patient upgraded to med telemetry. Echo done, no regional wall motion abnormality. EKG with chest pain. Other chronic medical conditions:Continue with/resume home meds as and when able. 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 Anemia: Hb around baseline. History of DVT: Patient states many years ago. As per record looks like in 2019 postop. Not taking any anticoagulation DVT prophylaxis: Lovenox Disposition medical floor, for [facility] ju. Full code CM notified of need for P2P for hospital stay denial later in the day 05/05, called the [phone]. Left voicemail for call back. ---> tentative call back on Monday around 9:30 am. Admission and Anticipated Discharge Date Admission Date: May 02, 2023 Subjective Patient seen and examined at bedside as a follow-up of UTI, likely come to acquired pneumonia, sepsis POA. Patient lying in bed, on room air, reports no nausea and vomiting, reports feeling better lately, no more diaphoresis. Blood pressure has been better. Patient denies any headache or dizziness or chest pain. Physical Exam Physical Exam: GENERAL: Alert and oriented x3. NAD, on RA. HEENT: No pallor, no icterus. Pupils equal, round and reactive to light. Oral mucosa moist. NECK: No JVD, no neck masses. HEART: S1 and S2 heard. Regular rate and rhythm. No murmur, no gallop. RESPIRATORY SYSTEM: Normal AP diameter. No accessory muscle use. No wheezing, no crackles. ABDOMEN: Soft, bowel sounds present, nontender, no distention. CENTRAL NERVOUS SYSTEM: No facial droop. Speech is clear. Obeys simple commands. Moves extremities. EXTREMITIES: No edema, no erythema seen. s/p Rt BKA - stump site w/ no s/s infection. Results & Data Results & Data Vital Signs (Past 12 Hours) Vital Signs Temp Pulse Pulse Resp BP BP Pulse Ox 05/07/23 11:06 36.8 C 72 16 106/64 91 05/07/23 08:00 64 05/07/23 07:46 36.6 C 66 18 113/66 94 05/07/23 04:00 36.7 C 67 18 110/65 94 O2 Del Method 05/07/23 11:06 Room Air 05/07/23 08:00 05/07/23 07:46 Room Air 05/07/23 04:00 Room Air
[2023-05-07] MEDS: cefTRIAXone SODIUM 2,000 MG in DEXTROSE 5% 50 ML IV SCH (16:46)
--- NOTE | 2023-05-08 06:55 | Anesthesiology Consultation ---
Date of Service May 08, 2023 Assessment & Plan (1) Encounter for pre-operative examination: Chart Review Chart Review: Acceptable Risk for Surgery and Patient NOT seen in Pre Admission Testing Consults Requested none History Height/Weight Height: 6 ft 6 in Weight: 128.1 kg Allergies Allergy/AdvReac Type Severity Reaction Status Date / Time Penicillins Allergy Intermediate Anaphylaxis Verified 05/05/23 09:37 tramadol AdvReac Unknown Unknown Verified 05/01/23 22:29 Medications Home Medications Medication Instructions Recorded Confirmed Last Taken acetaminophen 500 mg tablet 1,500 mg PO DAILY PRN Pain 05/01/23 05/01/23 Unknown Active Medications Generic Name Dose Route Start Last Admin Trade Name Freq PRN Reason Stop Dose Admin Acetaminophen 650 mg 05/02/23 01:42 05/05/23 08:16 Acetaminophen 325 Mg Tab PO 06/01/23 01:41 650 mg Q4H PRN Administration pain/fever Enoxaparin Sodium 40 mg 05/04/23 09:00 05/07/23 08:22 Enoxaparin Inj 40 Mg/0.4 Ml Syr SQ 06/03/23 08:59 40 mg QAM CHERRY Administration Promethazine HCl 12.5 mg/ 50.5 mls @ 202 mls/hr 05/03/23 11:00 05/03/23 11:55 Sodium Chloride IV 06/02/23 10:59 Infused Q6H PRN Infusion Nausea And Vomiting Ceftriaxone Sodium 2,000 mg/ 70 mls @ 100 mls/hr 05/05/23 15:30 05/07/23 18:14 Dextrose IV 05/19/23 15:29 Infused Q24H CHERRY Infusion Protocol Lactobacillus Acidophilus 2 cap 05/02/23 09:00 05/07/23 21:21 Advanced Probiotic 1250 Mg Capsule PO 06/01/23 08:59 2 cap BID CHERRY Administration Past Medical History Medical History (Updated 05/08/23 @ 06:55 by Franck Kathleen DO) Imeqizi-Jxrvs-Ilpeo disease Osteomyelitis Past Family History Family History Other No significant family history Social History Smoking Status: Never smoker tobacco type: cigarettes Do You Dip or Chew Tobacco: No Hx Alcohol Use: No alcohol intake frequency: holidays/special occasions only Hx Substance Use: No Physical Exam Vital Signs Last Vital Signs Temp 97.9 F 05/08/23 04:00 Pulse 71 05/08/23 04:00 Resp 18 05/08/23 04:00 BP 111/61 05/08/23 04:00 Pulse Ox 92 05/08/23 04:00 O2 Del Method Room Air 05/08/23 04:00 O2 Flow Rate 3 05/04/23 03:11 Testing Laboratory Results 05/06/23 05:35 05/07/23 05:32 Urine Color Dark Yellow 05/01/23 23:30 Urine Appearance Clear (Clear) 05/01/23 23:30 Urine pH 6.0 (4.5-7.5) 05/01/23 23:30 Ur Specific Holliday > 1.045 (1.000-1.030) H 05/01/23 23:30 Urine Protein 1+ (Negative) H 05/01/23 23:30 Urine Glucose (UA) Negative (Negative) 05/01/23 23:30 Urine Ketones Trace (Negative) H 05/01/23 23:30 Urine Nitrite Positive (Negative) A 05/01/23 23:30 Ur Leukocyte Esterase Trace (Negative) H 05/01/23 23:30 Urine WBC (Auto) 1-5 /hpf (0-5) 05/01/23 23:30 Urine RBC (Auto) 10-30 /hpf (0-4) H 05/01/23 23:30 U Hyaline Cast (Auto) 1-5 /lpf (0-5) 05/01/23 23:30 U Epithel Cells (Auto) 10-20 /lpf (0-5) H 05/01/23 23:30 Urine Bacteria (Auto) Negative (Negative) 05/01/23 23:30 05/01/23 22:42 Aerobic Blood Culture - Preliminary Blood Haemophilus parainfluenzae Anaerobic Blood Culture - Final No growth in Anaerobic bottle after 5 days. 05/01/23 22:42 Aerobic Blood Culture - Preliminary Blood Haemophilus parainfluenzae Anaerobic Blood Culture - Final No growth in Anaerobic bottle after 5 days. 05/04/23 09:30 Aerobic Blood Culture - Preliminary Blood No growth in Aerobic bottle after 48 hours. Anaerobic Blood Culture - Preliminary No growth in Anaerobic bottle after 48 hours. 05/04/23 09:30 Aerobic Blood Culture - Preliminary Blood No growth in Aerobic bottle after 48 hours. Anaerobic Blood Culture - Final 05/01/23 23:30 Urine Culture - Final Urine,Clean Catch Three types or organisms present, all moderate counts probable skin roger. No further identifications or sensitivities to follow. Electrocardiogram Date: 05/03/23 Findings: + NSR @ [facility], left anterior fascicular block
[2023-05-08] MEDS ORDERED: BENZOCAINE/TETRACAIN/BUTAM 50 APPLN/5 GM CAN EXT ONE (07:22)
--- NOTE | 2023-05-08 07:42 | Communication Note ---
Date of Service: May 08, 2023 Transesophageal echo performed without difficulty. Vegetation observed an ventricular side of aortic valve. mild to moderate aortic insufficiency. Will warrant extended antibiotic course
[2023-05-08] MEDS ORDERED: PROPOFOL IV EMULSION 10 MG/ML 20 ML VIAL IV ONE (07:45)
[2023-05-08] MEDS ORDERED: LIDOCAINE 2% 2 ML VIAL/AMP(20MG/ML) INFIL ONE (07:45)
[2023-05-08] MEDS ORDERED: PHENYLEPHRINE 100MCG/ML 5ML SYR ONE (07:45)
--- NOTE | 2023-05-08 07:52 | Anesthesiology Progress Note ---
Date of Service May 08, 2023 Anesthesia Post Procedure Vital Signs Vital Signs: Temp Pulse Pulse Resp BP Pulse Ox O2 Del Method 05/08/23 07:15 76 18 125/73 96 Room Air 05/08/23 06:00 64 05/08/23 04:00 97.9 F 71 18 111/61 92 Room Air 05/08/23 01:00 76 05/07/23 23:00 98.2 F 79 18 108/61 93 Room Air 05/07/23 19:00 98.1 F 73 18 110/64 92 Room Air 05/07/23 17:12 74 05/07/23 11:06 98.2 F 72 16 106/64 91 Room Air 05/07/23 08:00 64 Transfer of Care Handoff Completed per policy Notes Mental Status: alert / awake / arousable and participated in evaluation Patient Amnestic to Procedure: Yes Nausea / Vomiting: adequately controlled Pain: adequately controlled Airway Patency, RR, SpO2: stable & adequate BP & HR: stable & adequate Hydration State: stable & adequate Anesthetic Complications: no major complications apparent and Pt Satisfied with anesthetic care
[2023-05-08] MEDS: ENOXAPARIN INJ 40 MG/0.4 ML SYR SQ SCH (09:07)
[2023-05-08] MEDS: ADVANCED PROBIOTIC 1250 MG CAPSULE PO SCH ×2 (09:07→20:29)
--- NOTE | 2023-05-08 09:27 | Infectious Disease Consult ---
Date of Consultation May 08, 2023 Assessment & Plan (1) Bacteremia due to Gram-negative bacteria: Plan 52 y/o M who p/w nausea and vomiting and was found to have hemophilus parainfluenza bacteremia .His CT scan of abdomen and pelvis did not reveal an infectious etiology and he on aztreonam and doxycyline .Recommend discontinuing aztreonam and doxycycline and starting ceftriaxone s Thank you for allowing us to participate in the care of this patient ID will continue to follow Consultation Information Consultation was provided via telemedicine using two-way real-time interactive telecommunication between the patient and the telemedicine provider. For the duration of the visit, the provider was performing the assessment from a different facility than the patient. This includesuse of bluetooth stethoscope forauscultationperformed by the telepresenter that the telemedicine provider can hear if described in the physical exam. Medication Aid contact information: Please call [facility] . (Phone Number For Physician Use Only) After establishing a telemedicine visit, patient was: Patient was verified with two unique identifiers, Patient/authorized rep acknowledged consent and understanding and Gave permission to continue telehealth session Time Spent with Patient: Initial => 55 min History of Present Illness Attending Physician: Rakesh Strong MD Allergies Allergy/AdvReac Type Severity Reaction Status Date / Time Penicillins Allergy Intermediate Anaphylaxis Verified 05/05/23 09:37 chlorhexidine Allergy Mild Verified 05/08/23 14:44 tramadol AdvReac Unknown Unknown Verified 05/01/23 22:29 Home Medications Medication Instructions Recorded Confirmed Type acetaminophen 500 mg tablet 1,500 mg PO DAILY PRN Pain 05/01/23 05/01/23 History Patient History Medical History (Updated 05/08/23 @ 10:45 by Miguelito Barrera MD) Kcwxrst-Pjhpc-Aeavt disease Osteomyelitis Family History Other No significant family history Social History Smoking Status: Never smoker Second Hand Exposure: No; Do You Dip or Chew Tobacco: No; Hx Alcohol Use: No Hx Substance Use: No Preferred Language: Belarusian Communication Ability: Effective Special Education Instructor Required: No Beliefs That Will Affect Care: None Current Living Situation: Other Current Living Situation Comment: with 2 friends Feels Safe at Home: Yes Safety Concerns: Feels Safe At This Time Assistive Devices: Prosthesis and Special Shoe Physical Exam Constitutional: average body habitus, cooperative and comfortable Eyes: PERRL, conjunctivae normal, anicteric sclerae Respiratory: normal respiratory effort Results & Data Vital Signs (Past 12 Hours) Vital Signs Temp Pulse Pulse Resp BP BP Pulse Ox 05/08/23 09:05 36.8 C 70 18 107/65 92 05/08/23 08:20 05/08/23 08:50 36.7 C 74 18 126/70 92 05/08/23 08:35 36.8 C 74 18 102/60 91 05/08/23 08:20 36.8 C 70 18 112/71 92 05/08/23 07:50 106/51 L 05/08/23 07:45 70 16 93/50 L 95 05/08/23 07:36 68 16 113/48 L 95 05/08/23 07:15 76 18 125/73 96 05/08/23 06:00 64 05/08/23 04:00 36.6 C 71 18 111/61 92 05/08/23 01:00 76 05/07/23 23:00 36.8 C 79 18 108/61 93 O2 Del Method O2 Flow Rate 05/08/23 09:05 Room Air 05/08/23 08:20 Room Air 05/08/23 08:50 Room Air 05/08/23 08:35 Room Air 05/08/23 08:20 Room Air 05/08/23 07:50 05/08/23 07:45 Room Air 05/08/23 07:36 Nasal Cannula 5 05/08/23 07:15 Room Air 05/08/23 06:00 05/08/23 04:00 Room Air 05/08/23 01:00 05/07/23 23:00 Room Air
--- NOTE | 2023-05-08 10:47 | Cardiology Progress Note ---
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 Blood cultures growing haemophilus pa rainfluenzae which is part of the HACEK bacteria associated with endocarditis. No obvious vegetation per transthoracic echocardiogram, however, moderate aortic valve regurgitation noted. Repeat blood cultures pending. Recommend transesophageal echocardiogram for further evaluation. Procedure to be performed 05/08/2023. N.p.o. except medications on 05/07/2023. 05/07/2023 Anesthesia consultation placed with planned transesophageal echocardiogram in a.m. N.p.o. after midnight procedure and risks explained to the 05/08/2023 Patient stable from a cardiovascular standpoint though transesophageal echocardiogram demonstrates evidence of lower [place] valve endocarditis with mild to moderate aortic insufficiency, small aortic valve vegetation. Patient will warrant further input from infectious disease and likely extended course of antibiotic IV therapy Admission and Anticipated Discharge Date Admission Date: May 02, 2023 Subjective Patient seen and examined telemetry reviewed Patient underwent transesophageal echocardiogram this morning demonstrating vegetation attached to the right coronary cusp of the aortic valve, mild to moderate aortic insufficiency. Patient tolerated procedure well Physical Exam Constitutional: well developed, well nourished and + obese; no acute distress ENMT: Mouth: + poor dentition Neck: trachea midline, no thyromegaly Respiratory: no respiratory distress, no labored breathing and no retractions Auscultation: + diminished lung sounds (Right base); no crackles, no rales, no rhonchi and no wheezes Cardiovascular: Rate/Rhythm: regular rate and regular rhythm Heart Sounds: normal S1 and normal S2; no murmur Vessels: radial pulses present; no JVD and no carotid bruit Extremities: no edema Gastrointestinal (Abdomen): Inspection/Auscultation: abdomen normal to inspection and normal bowel sounds; abdomen not distended Percussion/Palpation: abdomen soft; abdomen nontender, no guarding and abdomen not rigid Neurologic: CN's II-XI intact bilaterally and moves all extremities; no focal motor deficits Psychiatric: Orientation: alert and oriented x 3 Results & Data Vital Signs (Past 12 Hours) Vital Signs Temp Pulse Pulse Resp BP BP Pulse Ox 05/08/23 10:35 36.6 C 67 18 103/60 92 05/08/23 10:05 36.7 C 71 18 114/66 91 05/08/23 09:35 36.5 C 69 18 109/65 92 05/08/23 09:05 36.8 C 70 18 107/65 92 05/08/23 08:20 05/08/23 08:50 36.7 C 74 18 126/70 92 05/08/23 08:35 36.8 C 74 18 102/60 91 05/08/23 08:20 36.8 C 70 18 112/71 92 05/08/23 07:50 106/51 L 05/08/23 07:45 70 16 93/50 L 95 05/08/23 07:36 68 16 113/48 L 95 05/08/23 07:15 76 18 125/73 96 05/08/23 06:00 64 05/08/23 04:00 36.6 C 71 18 111/61 92 05/08/23 01:00 76 05/07/23 23:00 36.8 C 79 18 108/61 93 O2 Del Method O2 Flow Rate 05/08/23 10:35 Room Air 05/08/23 10:05 Room Air 05/08/23 09:35 Room Air 05/08/23 09:05 Room Air 05/08/23 08:20 Room Air 05/08/23 08:50 Room Air 05/08/23 08:35 Room Air 05/08/23 08:20 Room Air 05/08/23 07:50 05/08/23 07:45 Room Air 05/08/23 07:36 Nasal Cannula 5 05/08/23 07:15 Room Air 05/08/23 06:00 05/08/23 04:00 Room Air 05/08/23 01:00 05/07/23 23:00 Room Air
--- NOTE | 2023-05-08 14:51 | XRay Report ---
XR chest 1V portable CLINICAL HISTORY: right PICC tip TECHNIQUE: Single frontal radiograph of the chest was obtained. Comparison: Comparison is made to chest radiograph 05/03/2023 FINDINGS: Interval placement of right PICC with the tip in the mid to lower SVC. The cardiomediastinal silhouet te is normal. Right hemidiaphragmatic elevation is again seen. No evidence of pleural effusion or pne umothorax. IMPRESSION: Satisfactory position of right PICC with the tip in the mid to lower SVC. No pneumothorax. ACT 112: Negative or not required by law. Electronically signed by: Vinny Garcia M.D. 05/08/2023 2:49 PM
--- NOTE | 2023-05-08 15:22 | Hospitalist Progress Note ---
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 He also reported coughing for the same duration with yellow phlegm. Denies sore throat. He is being managed for the following: Likely acute UTI Likely community-acquired pneumonia versus bronchitis Gram Neg bacteremia Sepsis POA: 2/2 GNB bacteremia. 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 Procalcitonin elevated at 17.96 Admitting CTAP with no acute findings in the abdomen or pelvis. Admitting UA suggestive of UTI, patient complained of 3 days of cough with yellowish sputum at presentation CXR with no acute process. Follow admitting blood culture and urine culture. UCx contaminant. GNB on bl cx -haemophilus parainfluenza. Follow repeat blood culture 05/04. Patient with cough with yellow sputum--getting glass driller per pt. WBC trending down, improving clinically, patient has been afebrile, vitals stable. Continue with levofloxacin and vancomycin started 05/02. -->> Levofloxacin changed to aztreonam 05/04 ---->> d/w ID 05/08, c/w Rocephin 05/05 for 6 weeks ID consult, appreciate recommendation. Plan for ELY on Monday d/t H. Parainfl bacteremia and poorly evaluated aortic valve on TTE -->> aortic valve vegetation noted. Nausea, vomiting, diarrhea:CTAP is okay. improved. Diaphoresis/troponin elevation: Concern for ACS, EKG without obvious ST or T changes. Will trend troponin. Discussed with cardiology. Patient upgraded to med telemetry. Echo done, no regional wall motion abnormality. EKG with chest pain. Other chronic medical conditions:Continue with/resume home meds as and when able. 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 Anemia: Hb around baseline. History of DVT: Patient states many years ago. As per record looks like in 2019 postop. Not taking any anticoagulation DVT prophylaxis: Lovenox Disposition medical floor, CM assisting with DC plan. Final ID rec awaiting. Full code Admission and Anticipated Discharge Date Admission Date: May 02, 2023 Subjective Patient seen and examined at bedside as a follow-up of UTI, likely come to acquired pneumonia, sepsis POA. Patient lying in bed, on room air, reports no nausea and vomiting, reports feeling better lately, no more diaphoresis. Blood pressure has been better. Patient denies any headache or dizziness or chest pain. Underwent ELY 05/08, revealed aortic valve vegetation. Discussed with infectious disease, plan to continue antibiotic for 6 weeks from negative blood culture at that. PICC line consent obtained, PICC line ordered. Peer to peer done with insurance over the phone. Denial overturned. Physical Exam Physical Exam: GENERAL: Alert and oriented x3. NAD, on RA. HEENT: No pallor, no icterus. Pupils equal, round and reactive to light. Oral mucosa moist. NECK: No JVD, no neck masses. HEART: S1 and S2 heard. Regular rate and rhythm. No murmur, no gallop. RESPIRATORY SYSTEM: Normal AP diameter. No accessory muscle use. No wheezing, no crackles. ABDOMEN: Soft, bowel sounds present, nontender, no distention. CENTRAL NERVOUS SYSTEM: No facial droop. Speech is clear. Obeys simple commands. Moves extremities. EXTREMITIES: No edema, no erythema seen. s/p Rt BKA - stump site w/ no s/s infection. Results & Data Results & Data Vital Signs (Past 12 Hours) Vital Signs Temp Pulse Pulse Resp BP BP Pulse Ox 05/08/23 14:16 71 05/08/23 11:35 36.7 C 65 18 106/60 92 05/08/23 11:05 36.8 C 66 18 95/58 L 91 05/08/23 10:35 36.6 C 67 18 103/60 92 05/08/23 10:05 36.7 C 71 18 114/66 91 05/08/23 09:35 36.5 C 69 18 109/65 92 05/08/23 09:05 36.8 C 70 18 107/65 92 05/08/23 08:20 05/08/23 08:50 36.7 C 74 18 126/70 92 05/08/23 08:35 36.8 C 74 18 102/60 91 05/08/23 08:20 36.8 C 70 18 112/71 92 05/08/23 07:50 106/51 L 05/08/23 07:45 70 16 93/50 L 95 05/08/23 07:36 68 16 113/48 L 95 05/08/23 07:15 76 18 125/73 96 05/08/23 06:00 64 05/08/23 04:00 36.6 C 71 18 111/61 92 O2 Del Method O2 Flow Rate 05/08/23 14:16 05/08/23 11:35 Room Air 05/08/23 11:05 Room Air 05/08/23 10:35 Room Air 05/08/23 10:05 Room Air 05/08/23 09:35 Room Air 05/08/23 09:05 Room Air 05/08/23 08:20 Room Air 05/08/23 08:50 Room Air 05/08/23 08:35 Room Air 05/08/23 08:20 Room Air 05/08/23 07:50 05/08/23 07:45 Room Air 05/08/23 07:36 Nasal Cannula 5 05/08/23 07:15 Room Air 05/08/23 06:00 05/08/23 04:00 Room Air
[2023-05-08] MEDS: cefTRIAXone SODIUM 2,000 MG in DEXTROSE 5% 50 ML IV SCH (15:39)
[2023-05-09] MEDS: ENOXAPARIN INJ 40 MG/0.4 ML SYR SQ SCH (08:49)
[2023-05-09] MEDS: ADVANCED PROBIOTIC 1250 MG CAPSULE PO SCH (08:49)
[2023-05-09] MEDS: ACETAMINOPHEN 325 MG TAB PO PRN (08:58)
[2023-05-09] MEDS: cefTRIAXone SODIUM 2,000 MG in DEXTROSE 5% 50 ML IV SCH (11:57)
--- NOTE | 2023-05-09 12:19 | Discharge Summary ---
Date of Service May 09, 2023 Admission HPI Per Admitting Provider 52-year-old male with past med significant for osteomyelitis with Staph aureus, chronic pain left foot, Charcot admitted to disease, history of right BKA, history of DVT comes in because nausea vomiting and diarrhea going on for last 3 days. On and off fevers. Has dry cough. States the stools are dark. Symptoms bringing phlegm when he is coughing and its yellow. Denies any headache. Was slightly dizzy. No earache runny nose or sore throat. No chest pain or shortness of breath. Currently sitting comfortably and hemodynamically stable Past medical history as mentioned above Past surgical history right below-knee amputation, amputation of the left great toe Social history says he is cutting back on smoking last time he smoked was 1 month ago. No alcohol use. No drug use Family history mother has diabetes. Father has heart attack. Prostate cancer. Brother has Charcot Michaelle tooth, sister has Charcot Michaelle tooth Admission Exam Per Admitting Provider General- Not in distress Head- atraumatic Eyes- PERRL, ENT- oropharynx clear Neck- supple, no JVD,. Lungs- clear to auscultation no wheezing or crackles. Heart- regular rhythm; no murmur, no gallop. Abdomen- normal bowel sounds, soft, nontender, no distension Extremities- s/p right bka. stump site no erythema or drainage seen. Neuro- alert, oriented x 3; PERRL,no facial palsy; no dysarthria; non focal Skin- warm & dry Principal Diagnosis Haemophilus parainfluenza bacteremia Sepsis POA Infective endocarditis of the nulato Valve Discharge Exam GENERAL: Alert and oriented x3. NAD, on RA. HEENT: No pallor, no icterus. Pupils equal, round and reactive to light. Oral mucosa moist. NECK: No JVD, no neck masses. HEART: S1 and S2 heard. Regular rate and rhythm. No murmur, no gallop. RESPIRATORY SYSTEM: Normal AP diameter. No accessory muscle use. No wheezing, no crackles. ABDOMEN: Soft, bowel sounds present, nontender, no distention. CENTRAL NERVOUS SYSTEM: No facial droop. Speech is clear. Obeys simple commands. Moves extremities. EXTREMITIES: No edema, no erythema seen. s/p Rt BKA - stump site w/ no s/s infection. Discharge Data Allergies Allergy/AdvReac Type Severity Reaction Status Date / Time Penicillins Allergy Intermediate Anaphylaxis Verified 05/05/23 09:37 chlorhexidine Allergy Mild Verified 05/08/23 14:44 tramadol AdvReac Unknown Unknown Verified 05/01/23 22:29 Consultations 05/02/23 00:16 ED Decision to Admit Stat 05/03/23 15:32 Consult Cardiology Routine 05/03/23 16:56 Consult Infectious Diseases Routine 05/07/23 11:30 Consult Anesthesiology Routine Procedures Performed Operation Date: 05/08/23 07:30 Actual Procedures p Echo Transesophageal - Miguelito Barrera MD s Echo Color Flow - Miguelito Barrera MD s Doppler Echo Limited/Follow Up - Miguelito Barrera MD Ordered Studies 05/01/23 19:26 CT Abd and Pelvis [CT abd pelvis IV con only] Stat 05/03/23 16:26 US venous doppler [facility] Urgent Hospital Course (1) Sepsis: Plan 52-year-old male with PMH of OM with the Staph aureus, chronic pain left foot, Charcot disease, 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 He also reported coughing for the same duration with yellow phlegm. Denies sore throat. He was managed for the following: Likely acute UTI Likely community-acquired pneumonia versus bronchitis Gram Neg bacteremia Sepsis POA: 2/2 GNB bacteremia. Infective endocarditis of the nulato valve Respiratory rate, pulse rate, WBC elevated and lactate normal at presentation. Procalcitonin elevated at 17.96 Admitting CTAP with no acute findings in the abdomen or pelvis. Admitting UA suggestive of UTI, patient complained of 3 days of cough with yellowish sputum at presentation CXR with no acute process. Follow admitting blood culture and urine culture. UCx contaminant. GNB on bl cx -haemophilus parainfluenza. Follow repeat blood culture 05/04 - no growth 5 days . Patient with cough with yellow sputum--getting drugless physician per pt. WBC trending down, improving clinically, patient has been afebrile, vitals stable. Continue with levofloxacin and vancomycin started 05/02. -->> Levofloxacin changed to aztreonam 05/04 ---->> d/w ID 05/08, c/w Rocephin 05/05 for 6 weeks ID colleen bess recommendation. Plan for ELY on Monday d/t H. Parainfl bacteremia and poorly evaluated aortic valve on TTE -->> aortic valve vegetation noted. Nausea, vomiting, diarrhea:CTAP is okay. improved. Diaphoresis/troponin elevation: Concern for ACS, EKG without obvious ST or T changes. Will trend troponin. Discussed with cardiology. Patient upgraded to med telemetry. Echo done, no regional wall motion abnormality. EKG with chest pain. Other chronic medical conditions:Continue with/resume home meds as and when able. 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 Anemia: Hb around baseline. History of DVT: Patient states many years ago. As per record looks like in 2019 postop. Not taking any anticoagulation DVT prophylaxis: [facility] medical floor, assisting with DC plan. Final ID rec awaiting. Full code Patient being discharged home with home health with following instruction at the point of discharge: Follow-up with your primary care physician within a week time and likely you will need labs CBC/CMP/magnesium/phosphorus. You are being discharged on ceftriaxone daily to complete 6 weeks of therapy. You will need blood labs [CBC/CMP] weekly while being on IV antibiotic. Follow-up with infectious disease doctor in about a month time. He will be discharged on probiotics for the duration of antibiotic therapy. Take your medications as prescribed. Please make sure that you are able to get your medications today by calling your pharmacy before you leave the hospital so that your treatment continuity is not broken. Home Health Attestation I certify that this patient is under my care and that I, or a physicians fleet administrative assistant working with me, had a face to-face encounter that meets the home health [id number] encounter requirements with this patient. The encounter with the patient was in whole, or in part, for the following medical condition, which is the primary reason for home health care (list medical condition): I certify that, based on my findings, the following services are medically necessary home health services: My clinical findings support the need for the above services because: Further, I certify that my clinical findings support that this patient is homebound (i.e. absences from home require considerable and taxing effort and are for medical reasons or oriental orthodox services or infrequently or of short duration when for other reasons) because: Certification for Home Health Services: Based on the above findings, I certify that this patient is confined to the home and needs intermittent alf care, physical therapy and/or speech therapy or continues to need occupational therapy. The patient is under my care, and I have initiated the establishment of the plan of care. This patient will be followed by a physician who will periodically review the plan of care. Total Time Total Time Spent Total Time Spent (In Minutes): 45 Discharge Plan Discharge Items Patient Disposition: Home - Home Health Services Reason For Visit: N/V AND DIARRHEA, FEVER Discharge Diagnosis: Haemophilus parainfluenza bacteremia Sepsis POA Infective endocarditis of the nulato Valve Activity: Resume your previous activity Non-emergency contact: Primary Care Provider Call non-emergency contact if: you have any medication questions, your symptoms worsen and your temperature is above 101 Follow-up/Referrals: Idalia Manuel MD [Hospitalist] - (Date & Time 05/12/2023 11:20 AM Provider Idalia Manuel MD Department Family Medicine [facility] ) Diet: Regular Addtl Attending Provider Instructions: Follow-up with your primary care physician within a week time and likely you will need labs CBC/CMP/magnesium/phosphorus. You are being discharged on ceftriaxone daily to complete 6 weeks of therapy. You will need blood labs [CBC/CMP] weekly while being on IV antibiotic. Follow-up with infectious disease doctor in about a month time. He will be discharged on probiotics for the duration of antibiotic therapy. Take your medications as prescribed. Please make sure that you are able to get your medications today by calling your pharmacy before you leave the hospital so that your treatment continuity is not broken. Pending Studies at Discharge: Yes Stand-Alone Forms: My rSmart, Smoking Cessation Medications and DC Order Prescriptions: New diclofenac sodium [Voltaren Arthritis Pain] 1 % Gel 2 g EXT Q6H PRN (Reason: left ankle pain) Qty: 100 0RF Advanced Probiotic 625 mg (10 billion cell) Capsule 2 cap PO BID 42 Days Qty: 168 0RF ceftriaxone 2 gram recon soln 2 g IV DAILY 37 Days Qty: 37 0RF Continued acetaminophen [Tylenol Ex Str Arthritis Pain] 500 mg Tablet 1,500 mg PO DAILY PRN (Reason: Pain) Discharge Orders: Discharge Order (Routine); Ordered 05/09/23 Ordered By: Rakesh Strong Admission Data Admit Date/Time: 05/02/23 01:23 Attending Provider: Rakesh Strong Admit Provider: Simon Nj Primary Care Provider: Katelynn Jaquez Other Providers: Simon Nj ; Neville Schilling ; Reddy Daniels ; Robin Humphrey ; Felix Woodard I. ; Duane Jean II ; Kirsten Herrera ; Luis Leigh ; Chip Stafford ; Estefany Leos ; Ana Giraldo ; Stefanie Sylvester ; Monique Mcleod ; Mayra Murguia ; Agus Saldana ; Anatoliy De Souza ; Miguel Dominguez ; Mason Milton ; Essence Milton ; Colby Abbott ; Dara Lee ; Hitesh Carter ; Ethan Stack ; Clint Mora ; Jaime Herrera ; Katheryn Moore ; Luis Mason ; Rita Xie ; Cristina Mason ; Esvin Conn ; Tresa Jo ; Tanmay Hutchins. ; Betzaida Mancilla ; Dedra Javed ; Marc Roque ; Casie Vela ; Lorrie Fischer ; Sheeba Brown ; Mari Lancaster ; Franck Lancaster V ; Lupillo Bhat ; Stefanie Bustillo ; Yariel Salazar ; Alma Madden ; Franck Hdz ; Joel Moore ; Vinny Fields ; Isabella Bryan ; Rossy Claire ; Franck Kathleen ; Cal Meléndez ; Mónica Costello ; Sukhdev Yee ; Liberty Jenkins ; Any Tracy ; Bill Padilla ; Umberto Herrera ; Jessica Moody ; Marjan York ; Desmond Wynn ; Aram Salgado ; Agus Taylor Jr ; Kaylee Haskins ; Ju Nieto ; Pema Salmeron ; Marc Hills ; Sunita Lofton ; Mason Villavicencio ; Gene Antoine I. ; Joi Bowden S. ; Ju Hart. ; Miriam Avendaño. ; Rosalino Guillermo ; Albino Vásquez ; Wilfredo Kohli ; Daniel Amato V. ; Boy Newell ; Roberta Austin ; Rose Lopez ; Sapna Kimbrough ; Leora Johnson
== END 2023-05-09 14:35 | disposition home health service (06) | DRG 871 ==
LOC: ED 15:30 → EDINP 05-02 01:23 → 3W 05-02 01:42 → 2W 05-03 15:24
DX: Z88.8 Allergy status to other drugs, medicaments and biological substances; I33.0 Acute and subacute infective endocarditis; G60.0 Hereditary motor and sensory neuropathy; Z88.0 Allergy status to penicillin; Z79.82 Long term (current) use of aspirin; Z88.6 Allergy status to analgesic agent; N39.0 Urinary tract infection, site not specified; J40 Bronchitis, not specified as acute or chronic; J18.9 Pneumonia, unspecified organism; A41.9 Sepsis, unspecified organism